=== PATIENT | male | born 1955 | race Caucasian/White ===

== ENCOUNTER → 2017-09-22 15:34 | Outpatient (CLI) | payer SELFPAY ==
[2017-09-22 18:20] LABS: Anion Gap 8 (5-15); BUN 15 mg/dL (7-18); BUN/Creat Ratio 16.4 RATIO (10-20); Chloride 105 mmol/L (98-107); Cholesterol 165 mg/dL (200); Creatinine, Serum 0.92 mg/dL (0.70-1.30); EST Glomerular Filtration Rate 88 mL/min (>60); Est Glom Filt Rate - Afr Amer 107 mL/min (>60); Glucose 108 mg/dL (70-110); High Density Lipoprotein 37 mg/dL; Potassium 3.9 mmol/L (3.5-5.1); Sodium Level 136 mmol/L (136-145); Triglycerides 98 mg/dL; Very Low Density Lipoprotein 20 mg/dL (5-40)
== END ==
PROVIDERS: Family Provider Family Medicine; PCP Family Medicine; Visit Provider Family Medicine
DX: E78.00 Pure hypercholesterolemia, unspecified (principal)
CPT/HCPCS: 36415; 80048; 80061

== ENCOUNTER → 2018-08-03 11:04 | Outpatient (CLI) | payer SELFPAY ==
[2018-08-03 12:19] LABS: Anion Gap 8 (5-15); BUN 12 mg/dL (7-18); Calcium,Total 9.4 mg/dL (8.5-10.1); Chloride 106 mmol/L (98-107); Cholesterol 145 mg/dL (200); EST Glomerular Filtration Rate 104 mL/min (>60); Est Glom Filt Rate - Afr Amer 125 mL/min (>60); Glucose 95 mg/dL (74-106); High Density Lipoprotein 37 mg/dL; Potassium 4.5 mmol/L (3.5-5.1); Sodium Level 142 mmol/L (136-145); Triglycerides 90 mg/dL; Very Low Density Lipoprotein 18 mg/dL (5-40)
--- OUTSIDE RECORDS SUMMARY | 2018-09-19 13:55 | XMS RPT_ITS ---
:1955 Author Organization [facility] Care Team Providers Name Role Phone Virgil Payton Attending Unavailable Virgil Payton Primary Care Unavailable Virgil Payton Attending Unavailable Virgil Payton Referring Unavailable Virgil Payton Primary Care Unavailable PROBLEMS PROBLEMS No Problem Records FoundPROCEDURES PROCEDURES No Procedure Records FoundRESULTS RESULTS BASIC METABOLIC Collected: 08/03/2018 Status: F Source: BHARATI PROFILE (BMP) 11:04 AM [facility] REPOSITORY TYPE CODE TESTS RESULT OUT OF RANGE REFERENCE UNITS LAB L501.0100 74-106 mg/dL Normal GLU 95 Result Comment: Please note revised GLUCOSE reference range effective 2017. LAB L501.1000 7-18 mg/dL Normal BUN 12 LAB L501.1100 0.70-1.30 mg/dL Normal CREAT,SERUM 0.80 Result Comment: The validity of the calculated GFR AND GFRAA in patients over 70 years has not been determined. Clinical correlation is essential. LAB L501.1110 >60 mL/min Normal EST GFR 104 Result Comment: Non- GFR Calc LAB L501.1115 >60 mL/min Normal EST GFR - AA 125 Result Comment: GFR Calc LAB L501.1300 10-20 RATIO Normal BUN/CRE 15.0 LAB L501.2200 8.5-10.1 mg/dL CA Normal 9.4 LAB L501.5300 136-145 mmol/L NA Normal 142 LAB L501.5600 3.5-5.1 mmol/L K Normal 4.5 LAB L501.5900 98-107 mmol/L CL Normal 106 LAB L501.6100 21.0-32.0 mmol/L Normal CO2 28.0 LAB L501.6200 5-15 Normal GAP 8 Performed By: #### L500.2500, L500.4100 #### [facility] [address] [place], [address] LIPID PROFILE Collected: 08/03/2018 Status: F Source: BHARATI 11:04 AM [facility] REPOSITORY TYPE CODE TESTS RESULT OUT OF RANGE REFERENCE UNITS LAB L501.4900 200 mg/dL Normal CHOL 145 Result Comment: <200 mg/dL Desirable 200-240 mg/dL Borderline >240 mg/dL High Risk LAB L501.5000 mg/dL Normal TRIG 90 Result Comment: The drugs N-Acetylcysteine and Metamizole may falsely depress this assay. Serum Triglycerides Reference Interval Normal <150 mg/dL Borderline high 150 - 199 mg/dL High 200 - 499 mg/dL Very High > or = 500 mg/dL LAB L501.6400 mg/dL Low HDL 37 Result Comment: The drugs N-Acetylcysteine and Metamizole may falsely depress this assay. Reference Range HDL <40 mg/dL Low HDL Cholesterol HDL >or= 60 mg/dL High HDL Cholesterol LAB L501.6500 0-130 mg/dL Normal LDL 90 LAB L501.6600 5-40 mg/dL Normal VLDL 18 Performed By: #### L500.2500, L500.4100 #### [facility] [address] [facility] [place], [place], [id number] BASIC METABOLIC Collected: 09/22/2017 Status: F Source: BHARATI PROFILE (BMP) 3:40 PM [facility] REPOSITORY TYPE CODE TESTS RESULT OUT OF RANGE REFERENCE UNITS LAB L501.0100 70-110 mg/dL Normal GLU 108 LAB L501.1000 7-18 mg/dL Normal BUN 15 LAB L501.1100 0.70-1.30 mg/dL Normal 0.92 CREAT,SERUM Result Comment: The validity of the calculated GFR AND GFRAA in patients over 70 years has not been determined. Clinical correlation is essential. LAB L501.1110 >60 mL/min Normal EST GFR 88 Result Comment: Non- GFR Calc LAB L501.1115 >60 mL/min Normal EST GFR - AA 107 Result Comment: GFR Calc LAB L501.1300 10-20 RATIO Normal BUN/CRE 16.4 LAB L501.2200 8.5-10.1 mg/dL CA Normal 9.0 LAB L501.5300 136-145 mmol/L NA Normal 136 LAB L501.5600 3.5-5.1 mmol/L K Normal 3.9 LAB L501.5900 98-107 mmol/L CL Normal 105 LAB L501.6100 21.0-32.0 mmol/L Normal CO2 23.0 LAB L501.6200 5-15 Normal GAP 8 Performed By: #### L500.2500, L500.4100 #### [facility] [address] [place], [address] LIPID PROFILE Collected: 09/22/2017 Status: F Source: VERSAILLES 3:40 PM [facility] REPOSITORY TYPE CODE TESTS RESULT OUT OF RANGE REFERENCE UNITS LAB L501.4900 200 mg/dL Normal CHOL 165 Result Comment: <200 mg/dL Desirable 200-240 mg/dL Borderline >240 mg/dL High Risk LAB L501.5000 mg/dL Normal TRIG 98 Result Comment: The drugs N-Acetylcysteine and Metamizole may falsely depress this assay. Serum Triglycerides Reference Interval Normal <150 mg/dL Borderline high 150 - 199 mg/dL High 200 - 499 mg/dL Very High > or = 500 mg/dL LAB L501.6400 mg/dL Low HDL 37 Result Comment: The drugs N-Acetylcysteine and Metamizole may falsely depress this assay. Reference Range HDL <40 mg/dL Low HDL Cholesterol HDL >or= 60 mg/dL High HDL Cholesterol LAB L501.6500 0-130 mg/dL Normal LDL 108 LAB L501.6600 5-40 mg/dL Normal VLDL 20 Performed By: #### L500.2500, L500.4100 #### [facility] [address] [place], [address] ALLERGIES ALLERGIES No Allergies Records FoundENCOUNTERS ENCOUNTERS ADMIT/DISCHARGE ACCOUNT ADMITTING ENCOUNTER LOCATION SOURCE NUMBER CLASS 08/03/2018 [id number] Ambulatory [facility] 0 [facility] ing:MFPLAB Repository 09/22/2017 [id number] Ambulatory [facility] 4 [facility] ing:MTLAB Repository PAYERS PAYERS ENCOUNTER GUARANTOR PAYER SUBSCRIBER SOURCE 08/03/2018 Jacob A [id number] Insurance:SELF PAY [place], [place] Number: Effective Repository [id number]: [phone] Date:2018-08-03 [phone] () 09/22/2017 Jacob A Primary NOT GIVENUNK [place] [id number] Insurance:SELF PAY [place], [place] Number: Effective Repository [phone]: [phone] Date:2017-09-22 [phone] ()
== END ==
PROVIDERS: Family Provider Family Medicine; PCP Family Medicine; Visit Provider Family Medicine
DX: I10 Essential (primary) hypertension (principal)
CPT/HCPCS: 36415; 80048; 80061

== ENCOUNTER → 2019-01-12 10:26 | Outpatient (CLI) | payer BC, SELFPAY ==
[2019-01-12 13:14] LABS: Anion Gap 6 (5-15); BUN 11 mg/dL (7-18); BUN/Creat Ratio 13.9 RATIO (10-20); Calcium,Total 9.2 mg/dL (8.5-10.1); Chloride 108 mmol/L (98-107); Cholesterol 145 mg/dL (200); Creatinine, Serum 0.79 mg/dL (0.70-1.30); EST Glomerular Filtration Rate 105 mL/min (>60); Est Glom Filt Rate - Afr Amer 127 mL/min (>60); Glucose 161 mg/dL (74-106); High Density Lipoprotein 40 mg/dL; Potassium 4.2 mmol/L (3.5-5.1); Sodium Level 140 mmol/L (136-145); Triglycerides 84 mg/dL; Very Low Density Lipoprotein 17 mg/dL (5-40)
== END ==
PROVIDERS: Family Provider Family Medicine; PCP Family Medicine; Visit Provider Family Medicine
DX: E78.5 Hyperlipidemia, unspecified (principal); I10 Essential (primary) hypertension
CPT/HCPCS: 36415; 80048; 80061

== ENCOUNTER → 2019-10-19 08:27 | Outpatient (CLI) | payer BC, SELFPAY ==
[2019-10-19 10:05] LABS: Anion Gap 6 (5-15); BUN 12 mg/dL (7-18); BUN/Creat Ratio 15.4 RATIO (10-20); Calcium,Total 9.2 mg/dL (8.5-10.1); Chloride 108 mmol/L (98-107); Creatinine, Serum 0.78 mg/dL (0.70-1.30); EST Glomerular Filtration Rate 106 mL/min (>60); Est Glom Filt Rate - Afr Amer 128 mL/min (>60); Glucose 116 mg/dL (74-106); Potassium 4.2 mmol/L (3.5-5.1); Sodium Level 141 mmol/L (136-145)
== END ==
PROVIDERS: PCP Family Medicine; Referring Provider Family Medicine; Visit Provider Family Medicine
DX: I10 Essential (primary) hypertension (principal)
CPT/HCPCS: 36415; 80048

== ENCOUNTER → 2020-04-17 09:12 | Outpatient (CLI) | payer MEDICARE, SELFPAY ==
--- NOTE | 2020-04-17 09:16 | RAD_ITS ---
STUDY: X-RAY - LEFT SHOULDER REASON FOR EXAM: Male, 64 years old. PAIN IN LEFT SHOULDER FOR ABOUT 6 MONTHS NOW. NO KNOWN INJURY. TECHNIQUE: 4 view(s) of the shoulder. COMPARISON: None. FINDINGS: Normal glenohumeral articulation. There is degenerative arthrosis of the acromioclavicular joint without inferior osseous spur formation. Normal acromion. Normal humeral head and visualized proximal humerus. The soft tissue structures are unremarkable. There is no demonstrated fracture. Normal visualized pulmonary apex. RAD/Shoulder min 2 Views IMPRESSION: Normally located glenohumeral joint and acromioclavicular joint without fracture, osteolytic or blastic bone lesion. Mild degenerative arthrosis of the acromioclavicular joint. Electronically Signed: Madyson Barraza MD at 17:35 EDT , Service support ,
== END ==
PROVIDERS: PCP Family Medicine; Referring Provider Family Medicine; Visit Provider Family Medicine
DX: M25.512 Pain in left shoulder (principal)
CPT/HCPCS: 73030

== ENCOUNTER 2020-05-21 13:00 | Outpatient (RCR) | payer MEDICARE, SELFPAY ==
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
--- NOTE | 2020-05-21 13:56 | HP.PTDCSUM_ITS ---
It has been my pleasure to treat JACOB WELLS referred by Dr. Virgil Payton MD, with the diagnosis of DEGENERATIVE ARTHROSIS L SHLD for a total of 5 visit(s). Discharge Date: Please see the following information for a summary of their discharge status. Subjective: IT'S NOT HURTING REAL BAD ANYMORE AND I CAN REACH UP TO THE TOP CUPBOARD AND GET WHAT I NEED NOW. PATIENT REPORTS HE WOULD LIKE TO TRY TO STOP PT AT THIS TIME AND CONTINUE WITH THE EX'S ON HIS OWN. PATIENT REPORTS HE DID ALL OF HIS HOME EX'S THIS MORNING. LEFT SHOULDER Pain Intensity (Out of 10): 0 % Improvement: 90 Objective/Function: PATIENT WAS SEEN TODAY FOR RE-ASSESSMENT OF PROGRESS TOWARD THE SET PT GOALS AND THE NEED FOR FURTHER PHYSICAL THERAPY VS READINESS FOR DISCHARGE. PATIENT HAS MADE GOOD PROGRESS WITH PT AND IS NOW INDEP WITH A HEP. UPON EXAM TODAY: Motor deficit: RIGHT PROFESSIONAL FIGHTER STRENGTH 74 LBS AND LEFT 72 LBS TODAY. INCREASED LEFT SHOULDER PAIN WITH LEFT PROFESSIONAL FIGHTER STRENGTH TESTING. LEFT UE STRENGTH IS NOW GROSSLY 4/5 WITH MMT'ING TESTED IN MID-RANGE TODAY. Sensory deficit: JENNIFER UE LIGHT TOUCH SENSATION INTACT AND SYMMETRICAL. ROM deficit: RIGHT UE WFL. LEFT: AROM LEFT SHLD FLEX 136 DEG, ABD, 120 DEG. SUPINE LEFT SHLD PROM: FLEX 152, SCAPTION 109 , IR 49 DEG, ER 45 DEG. PATIENT STILL HAS L SHLD PAIN AT THE END OF THE AVAILABLE ROM ALL PLANES WITH AROM AND PROM TESTING. OTHER: PATIENT REPORTS HIS LEFT WRIST IS FEELING GOOD AGAIN. Goal 1:: DECREASE C/O L SHOULDER AND UPPER ARM PAIN Goal Progress: Goal Met Goal 2:: IMPROVE LEFT UE FUNCTIONAL ROM TO EASE ADL'S Goal Progress: Goal Met Goal 3:: PATIENT WILL BE INDEP WITH A HEP FOR CONTINUED IMPROVEMENT ONCE FORMAL PHYSICAL THERAPY CONCLUDES. Goal Progress: Goal Met Goal 4:: INCREASE LEFT UE FUNCTIONAL STRENGTH TO EASE ADL'S. Goal Progress: Goal Met Plan: D/C TO INDEP HEP PER PATIENT REQUEST. If there are questions or concerns regarding this patient's physical therapy, please feel free to call me at [phone]. Thank you for the referral of this patient. Sincerely, Shell Chávez, PT, Cert MDT
== END 2020-05-21 19:00 | disposition home or self-care (01) ==
LOC: PT 13:00
PROVIDERS: PCP Family Medicine; Referring Provider Family Medicine; Visit Provider Family Medicine
DX: M19.012 Primary osteoarthritis, left shoulder (principal)
CPT/HCPCS: 97035; 97110; 97112; 97140; 97162; 97164; 97530

== ENCOUNTER → 2020-10-16 08:26 | Outpatient (CLI) | payer MEDICARE, SELFPAY ==
[2020-10-16 10:41] LABS: Microalbumin,Random Urine 7.3 mg/L (NO RANGE EST.); Microalbumin:Creatinine Ratio 15.4 mg/g CRE (<30 mg/g CRE)
[2020-10-16 10:55] LABS: Anion Gap 7 (5-15); BUN 17 mg/dL (7-18); BUN/Creat Ratio 22.8 RATIO (10-20); Calcium,Total 9.6 mg/dL (8.5-10.1); Chloride 107 mmol/L (98-107); Cholesterol 118 mg/dL (200); Creatinine, Serum 0.75 mg/dL (0.70-1.30); EST Glomerular Filtration Rate 111 mL/min (>60); Est Glom Filt Rate - Afr Amer 134 mL/min (>60); Glucose 123 mg/dL (74-106); High Density Lipoprotein 39 mg/dL; Potassium 4.3 mmol/L (3.5-5.1); Sodium Level 139 mmol/L (136-145); Triglycerides 91 mg/dL; Very Low Density Lipoprotein 18 mg/dL (5-40)
== END ==
PROVIDERS: PCP Family Medicine; Referring Provider Family Medicine; Visit Provider Family Medicine
DX: E11.9 Type 2 diabetes mellitus without complications (principal)
CPT/HCPCS: 36415; 80048; 80061; 82043; 82570

== ENCOUNTER → 2021-07-14 08:48 | Outpatient (CLI) | payer MEDICARE, SELFPAY ==
[2021-07-14 10:51] LABS: Anion Gap 4 (5-15); BUN 13 mg/dL (7-18); BUN/Creat Ratio 18.9 RATIO (10-20); Calcium,Total 9.4 mg/dL (8.5-10.1); Chloride 108 mmol/L (98-107); Cholesterol 111 mg/dL (200); Creatinine, Serum 0.69 mg/dL (0.70-1.30); EST Glomerular Filtration Rate 122 mL/min (>60); Est Glom Filt Rate - Afr Amer 148 mL/min (>60); Glucose 111 mg/dL (74-106); High Density Lipoprotein 37 mg/dL; Potassium 4.7 mmol/L (3.5-5.1); Sodium Level 138 mmol/L (136-145); Triglycerides 73 mg/dL; Very Low Density Lipoprotein 15 mg/dL (5-40)
== END ==
PROVIDERS: PCP Family Medicine; Visit Provider Family Medicine
DX: E11.9 Type 2 diabetes mellitus without complications (principal)
CPT/HCPCS: 36415; 80048; 80061

== ENCOUNTER → 2022-04-16 | Outpatient (CLI) | payer OTHER, SELFPAY ==
[2022-04-16 10:56] LABS: Anion Gap 7 (5-15); BUN 16 mg/dL (7-18); BUN/Creat Ratio 17.6 RATIO (10-20); Calcium,Total 9.8 mg/dL (8.5-10.1); Chloride 104 mmol/L (98-107); Cholesterol 119 mg/dL (200); Creatinine, Serum 0.91 mg/dL (0.70-1.30); EST Glomerular Filtration Rate 88 mL/min (>60); Est Glom Filt Rate - Afr Amer 107 mL/min (>60); Glucose 169 mg/dL (74-106); High Density Lipoprotein 34 mg/dL; Potassium 4.4 mmol/L (3.5-5.1); Sodium Level 137 mmol/L (136-145); Triglycerides 141 mg/dL; Very Low Density Lipoprotein 28 mg/dL (5-40)
== END | disposition home or self-care (01) ==
LOC: MFPLAB 08:39
PROVIDERS: PCP Family Medicine; Referring Provider Family Medicine; Visit Provider Family Medicine
DX: I10 Essential (primary) hypertension (principal)
CPT/HCPCS: 36415; 80048; 80061

== ENCOUNTER → 2022-12-07 | Outpatient (CLI) | payer MEDICARE, SELFPAY ==
[2022-12-07 10:30] LABS: Anion Gap 5 (5-15); BUN 12 mg/dL (7-18); BUN/Creat Ratio 13.4 RATIO (10-20); Calcium,Total 9.6 mg/dL (8.5-10.1); Chloride 101 mmol/L (98-107); Cholesterol 95 mg/dL (200); Creatinine, Serum 0.89 mg/dL (0.70-1.30); EST Glomerular Filtration Rate 90 mL/min (>60); Est Glom Filt Rate - Afr Amer 109 mL/min (>60); Glucose 105 mg/dL (74-106); High Density Lipoprotein 31 mg/dL; Potassium 4.8 mmol/L (3.5-5.1); Sodium Level 132 mmol/L (136-145); Triglycerides 97 mg/dL; Very Low Density Lipoprotein 19 mg/dL (5-40)
== END | disposition home or self-care (01) ==
PROVIDERS: PCP Family Medicine; Visit Provider Family Medicine
DX: I10 Essential (primary) hypertension (principal); R39.15 Urgency of urination
CPT/HCPCS: 36415; 80048; 80061; 84153

== ENCOUNTER → 2023-01-12 | Outpatient (CLI) | payer MEDICARE, SELFPAY ==
--- NOTE | 2023-01-12 | IMM_PTH ---
PATIENT: JACOB WELLS LOC: SUZI U#:[id number] AGE/SX: 67/M ROOM: RE01/12/[address]: Dr. Josué Lara MD : 1955 BED: DIS: 01/12/2023 SPEC #: [id number] RECD: 01/14/23 12:52 STATUS: ROYCE REQ #: [id number] BROOKE: 01/12/23 00:[address]: Josué Lara DEPT: IMMUNOHISTOCHEMISTRY RECD BY: Tatianna Haddad ENTERED: 01/14/23 12:55 SP TYPE: IMMUNO OTHR DR: Dr. Virgil Payton MD Tissues: A - PROSTATE RIGHT C - PROSTATE RIGHT Procedures: 34BE12 (add) P40 (add) 34BE12 (initial) PHYSICIAN & INSTITUTION [place] [id number] SPECIMEN INFORMATION: Tissue Source: A - Right prostate, apex, core biopsy, C - Right prostate, base, core biopsy Clinical Info: Elevated PSA Specimen Number: [id number] A & C CPT code: 91663, 16175 x3 METHODOLOGY: Deparaffinized sections of prefer/formalin-fixed tissue or PAP/DQ stained slides are incubated with monoclonal/polyclonal antibodies/oligonucleotide probes. Localization is made via biotin free immunoperoxidase method. Appropriate controls are performed and reacted as expected. Results on target cell population are indicated in the following table: RESULTS: ANTIBODY / CLONE RESULT Block A P40 (BC28) negative 34BE12 (34BE12) negative Block C P40 (BC28) negative 34BE12 (34BE12) negative These tests were developed and their performance characteristics determined by [facility]. They may not have been cleared or approved by the U.S. Food and Drug Administration. The FDA has determined that such clearance or approval is not necessary. The above immunohistochemical/dualISH markers are ordered and reviewed by the Pathologist. INTERPRETATION: A. Right prostate, apex, core biopsy: A minute focus of adenocarcinoma. C. Right prostate, base, core biopsy: A minute focus of adenocarcinoma. VINNY:areli 01/15/2023
--- NOTE | 2023-01-12 08:00 | PROSBIL_PTH ---
PATIENT: JACOB WELLS LOC: SUZI U#:[id number] AGE/SX: 67/M ROOM: RE01/12/[address]: Dr. Josué Lara MD : 1955 BED: DIS: 01/12/2023 SPEC #: [id number] RECD: 01/12/23 15:00 STATUS: ROYCE KARLI #: [id number] BROOKE: 01/12/23 08:[address]: Josué Lara DEPT: SURGICAL PATHOLOGY RECD BY: Jonas Lowery ENTERED: 01/13/23 10:37 SP TYPE: PROST BX BENITA DR: Dr. Virgil Payton MD Tissues: A - PROSTATE RIGHT B - PROSTATE RIGHT C - PROSTATE RIGHT D - PROSTATE LEFT E - PROSTATE LEFT F - PROSTATE LEFT Procedures: PROSTATE BX HEADER OPERATION: Prostate biopsy PRE-OP DIAGNOSIS: Elevated PSA TISSUE SUBMITTED: A - Right apex, B - Right mid, C - Right base, D - Left apex, E - Left mid, F - Left base MICROSCOPIC DIAGNOSIS A. Right prostate, apex, core biopsy: A minute focus of prostatic adenocarcinoma. Giorgi grade: 3+4=7 Number of cores involved: 1/1 Proportion of tissue involved: <5% Perineural invasion: Not identified. Greatest tumor length: <0.1 cm Focal high-grade prostatic intraepithelial neoplasia (HGPIN). See comment. B. Right prostate, mid, core biopsy: Prostatic tissue, negative for malignancy. C. Right prostate, base, core biopsy: A minute focus of prostatic adenocarcinoma. [place] grade: 3+4=7 Number of cores involved: 1/2 Proportion of tissue involved: <5% Perineural invasion: Not identified. Greatest tumor length: <0.1 cm See comment. D. Left prostate, apex, core biopsy: Prostatic adenocarcinoma. [place] grade: 3+4=7 Number of cores involved: 1/1 Proportion of tissue involved: ~90% Perineural invasion: Not identified. Greatest tumor length: 1.2 cm, discontinuous E. Left prostate, mid, core biopsy: Prostatic adenocarcinoma. Giorgi grade: 3+4=7 Number of cores involved: 2/2 Proportion of tissue involved: >95% Perineural invasion: Present, focal. Greatest tumor length: 1.3 cm F. Left prostate, base, core biopsy: Prostatic adenocarcinoma. [place] grade: 3+4=7 Number of cores involved: 2/2 Proportion of tissue involved: >95% Perineural invasion: Present, frequent. Greatest tumor length: 1.2 cm Focal high-grade prostatic intraepithelial neoplasia (HGPIN). SJ:areli 01/14/2023 COMMENT A & C. Immunohistochemistry ([id number]) supports the above diagnosis. Case has been reviewed in consultation with Dr. Bra who concurs with the above diagnosis. IDC:[id number] MICROSCOPIC DESCRIPTION Slides are reviewed. GROSS DESCRIPTION A - Received is one container designated prostate, right apex. The specimen consists of one elongated fragment of light tabor-white soft tissue measuring 1.0 cm in length and 0.1 cm in diameter. The specimen is totally submitted in one cassette. B - Received is one container designated prostate, right mid. The specimen consists of one elongated fragment of light tabor-white soft tissue measuring 1.0 cm in length and 0.1 cm in diameter. The specimen is totally submitted in one cassette. C - Received is one container designated prostate, right base. The specimen consists of two elongated fragments of light tabor-white soft tissue measuring 0.5 and 1.2 cm in length and 0.1 cm in diameter. The specimen is totally submitted in one cassette. D - Received is one container designated prostate, left apex. The specimen consists of one elongated fragment of light tabor-white soft tissue measuring 1.5 cm in length and 0.1 cm in diameter. The specimen is totally submitted in one cassette. E - Received is one container designated prostate, left mid. The specimen consists of two elongated fragments of light tabor-white soft tissue each measuring 1.5 cm in length and 0.1 cm in diameter. The specimen is totally submitted in one cassette. F - Received is one container designated prostate, left base. The specimen consists of two elongated fragments of light tabor-white soft tissue each measuring 1.5 cm in length and 0.1 cm in diameter. The specimen is totally submitted in one cassette. / SJ:areli 01/13/2023 TC:0 [facility]: [id number]
== END | disposition home or self-care (01) ==
LOC: LABSPEC 16:54
PROVIDERS: PCP Family Medicine; Referring Provider Urology; Visit Provider Urology
DX: R97.20 Elevated prostate specific antigen [PSA] (principal)
CPT/HCPCS: 88305; 88341; 88342; G0416

== ENCOUNTER → 2023-01-27 | Outpatient (CLI) | payer MEDICARE, SELFPAY ==
--- NOTE | 2023-01-27 09:55 | NM_ITS ---
CLINICAL: 67-year-old male with history of carcinoma of the prostate. WHOLE BODY 99m Tc MDP RADIONUCLIDE BONE SCINTIGRAPHY COMPARISON: None available FINDINGS: Following the intravenous administration of 27.2 mCi of 99m Tc MDP, whole body bone images reveal: 1. Increased radiopharmaceutical concentration is defined in the mid-lower cervical spine posteriorly on the right and left respectively, the fifth lumbar vertebra posteriorly on the right, the acromioclavicular and sternoclavicular compartments of both shoulders, the medial tibial compartment of the right knee. 2. The remaining skeletal structures are scintigraphically unremarkable with normal-appearing renal images and urinary bladder activity identified. NM/Bone Scan Whole Body IMPRESSION: 1. The increase in radiopharmaceutical defined in the cervical and lumbar spine, bilateral shoulders and right knee articulation is most consistent with degenerative arthrosis. 2. There is no definitive scintigraphic evidence of diffuse axial skeletal metastatic disease on the current examination. Electronically Signed: Itz Oquendo, at 21:17 EDT ,
== END | disposition home or self-care (01) ==
PROVIDERS: PCP Family Medicine; Referring Provider Urology; Visit Provider Urology
DX: C61 Malignant neoplasm of prostate (principal)
CPT/HCPCS: 78306; A9503

== ENCOUNTER → 2023-02-01 | Outpatient (CLI) | payer MEDICARE, SELFPAY ==
--- NOTE | 2023-02-01 08:14 | CT_ITS ---
STUDY: CT ABDOMEN AND PELVIS WITH CONTRAST REASON FOR EXAM: Male, 67 years old. PROSTATE CANCER RADIATION DOSAGE (If Supplied By Facility): CTDIvol = ( 14.96 ) mGy, DLP = ( 794.81 ) mGycm TECHNIQUE: Transaxial images were obtained from the dome of the diaphragm to the symphysis pubis without oral contrast. IV 100mL Isovue-300 was administered. Sagittal and coronal images were reconstructed. Individualized dose optimization techniques were used for this CT. COMPARISON: None. FINDINGS: The visualized lung bases are unremarkable. The visualized portions of the heart are within normal limits. Normal liver. The gallbladder is contracted. Normal spleen. Normal pancreas. Normal bilateral adrenal glands. Normal right kidney. Normal left kidney. Evaluation of the GI tract is limited by absence of oral contrast. Cannot exclude stomach wall thickening. No dilated loops of bowel or evidence for obstruction. Cannot exclude segmental thickening of the ramírez of the small or large bowel. Cannot exclude enteritis or colitis. Moderate diffuse fecal retention. Diverticulosis without definite diverticulitis. Appendix within normal limits. Aorta has an elongated fusiform aneurysm with greatest cross-sectional dimension of 6.8 cm. There is prominent eccentric intraluminal thrombus. No evidence for leak. There is calcified ectasia of both iliac arteries. Normal inferior vena cava. Normal retroperitoneum. Normal urinary bladder. Moderately large heterogeneous prostate. No definite pelvic adenopathy. Normal abdominal wall. Normal osseous structures. CT/Abdomen/Pelvis W IV Cont ONLY IMPRESSION: Elongated infrarenal aortic aneurysm with greatest diameter of 6.8 cm Moderate heterogeneous enlargement of the prostate gland. Electronically Signed: Clay Cassidy MD at 16:18 EDT ,
[2023-02-01 08:43] LABS: CREATININE FINGERSTICK < 0.9 mg/dL (0.70-1.30); EGFR FINGERSTICK > 60.0000 mL/min (>60)
== END | disposition home or self-care (01) ==
LOC: CT 08:13
PROVIDERS: PCP Family Medicine; Referring Provider Urology; Visit Provider Urology
DX: C61 Malignant neoplasm of prostate (principal)
CPT/HCPCS: 74177; Q9967

== ENCOUNTER → 2023-02-18 | Outpatient (CLI) | payer MEDICARE, SELFPAY ==
--- NOTE | 2023-02-18 07:09 | CT_ITS ---
INDICATION: AAA EXAMINATION: CTA abdomen and pelvis - TECHNIQUE: Routine abdominal CT angiogram protocol was performed with IV contrast. MIP images provided. A radiation dose optimization technique was used for this scan. IV Contrast dosage and agent: 100 cc of Isovue-370 RADIATION DOSAGE (If Supplied By Facility): CTDIvol = ( 31.80 ) mGy, DLP = ( 735.06 ) mGycm COMPARISON: Prior study dated: February 01, 2023 FINDINGS: Lung bases: There is a right middle lobe granuloma. Liver: The liver is diffusely low in attenuation consistent with fatty infiltration. Gallbladder: Normal. Spleen: Normal. Adrenal gland: Normal. Kidneys: Normal. No hydronephrosis or stone formation. Pancreas:Normal. Bowel gas pattern: Nonobstructive. There are diverticula arising from the colon. Appendix: Normal. Free air: None. Free fluid: None. Pelvis: Pelvic organs: No mass lesion noted. Bone survey: There are degenerative changes of the lumbar spine. No acute fractures. Adenopathy: No significant pathologic adenopathy detected. Vascular: There is a stable elongated fusiform infrarenal abdominal aneurysm measuring up to 6.8 cm in diameter. There is eccentric intraluminal thrombus. There is stable ectasia of the common iliac arteries. CT/CTA Abd/Pelvis W/WO Contrast IMPRESSION: Stable infrarenal aortic aneurysm measuring up to 6.8 cm. Atherosclerosis. Fatty infiltration of the liver. Electronically Signed: Eulalia Lerner MD at 10:30 EDT ,
== END | disposition home or self-care (01) ==
LOC: CT 07:09
PROVIDERS: PCP Family Medicine; Referring Provider Physician Assistant; Visit Provider Physician Assistant
DX: I71.40 Abdominal aortic aneurysm, without rupture, unspecified (principal)
CPT/HCPCS: 74174; Q9967

== ENCOUNTER → 2023-03-11 | Outpatient (CLI) | payer MEDICARE, SELFPAY ==
[2023-03-11 10:29] LABS: Mucous, Urine 0 SEEN /hpf (<or=2+); Red Blood Cells-Urine 0 SEEN /hpf (0-5)
[2023-03-11 10:33] LABS: Color, Urine Yellow (Yellow); Glucose, Dipstick Normal (Normal); Ketone-Dipstick Negative (Negative); Leukocyte Esterase-Dipstick 500 /ul (Negative); Nitrite-Dipstick Positive (Negative); Occult Blood-Urine 25 /ul (Negative); Protein-Dipstick Negative (Negative); Urine Bilirubin Dipstick Negative (Negative); Urine Clarity Sl. Cloudy (Clear); Urine Urobilinogen Normal (Normal)
[2023-03-11 10:41] LABS: White Blood Cells 10-25 SEEN /hpf (0-5)
[2023-03-11 10:42] LABS: Bacteria 4+ /hpf (None Seen); Squamous Epithelial Cells - UA 0-5 SEEN /hpf (0-5)
== END | disposition home or self-care (01) ==
LOC: LABSPEC 10:24
PROVIDERS: PCP Family Medicine; Referring Provider Physician Assistant Surgical; Visit Provider Physician Assistant Surgical
DX: R30.0 Dysuria (principal)
CPT/HCPCS: 81001; 87077; 87086; 87088; 87186

== ENCOUNTER → 2023-05-17 | Outpatient (CLI) | payer MEDICARE, SELFPAY ==
[2023-05-17 10:30] LABS: Absolute Neutrophil Count 6.4 X10^3/uL (2.0-7.7); Basophil# 0.08 X10^3/uL; Basophil% 0.8 % (0-1); Eosinophil# 0.25 X10^3/uL; Eosinophils% 2.5 % (0-5); Hematocrit 38.4 % (40-54); Hemoglobin 11.7 g/dL (13.0-16.5); Lymphocyte % 24.5 % (19-41); Mean Corp Hgb Conc 30.5 g/dL (32-36); Mean Corpuscular Hgb 26.9 pg (27.0-32.0); Mean Corpuscular Volume 88.3 fL (80-94); Mean Platelet Vol. 9.5 fl (6.2-12.0); Monocyte# 0.63 X10^3/uL; Monocyte% 6.4 % (0-10); NRBC Flagged by Analyzer 0 % (0-5); Neutrophil # 6.42 X10^3/uL (2.7-7.7); Neutrophil % 65.5 % (47-70); Platelet Count 291 K/mm3 (150-450); RBC Distribution Width CV 15.1 % (11.6-14.6); RBC Distribution Width SD 49.1 fl (35.1-43.9); Red Blood Count 4.35 M/mm3 (4.6-6.2); White Blood Count 9.8 K/mm3 (4.4-11.0)
[2023-05-17 10:47] LABS: Hemoglobin A1c 5.8 % (3.8-5.6)
[2023-05-17 11:04] LABS: Anion Gap 7 (5-15); BUN 12 mg/dL (7-18); BUN/Creat Ratio 14.3 RATIO (10-20); Calcium,Total 9.3 mg/dL (8.5-10.1); Chloride 104 mmol/L (98-107); Cholesterol 106 mg/dL (200); Creatinine, Serum 0.84 mg/dL (0.70-1.30); EST Glomerular Filtration Rate 97 mL/min (>60); Est Glom Filt Rate - Afr Amer 117 mL/min (>60); Glucose 98 mg/dL (74-106); High Density Lipoprotein 44 mg/dL; Potassium 4.2 mmol/L (3.5-5.1); Sodium Level 135 mmol/L (136-145); Triglycerides 69 mg/dL; Very Low Density Lipoprotein 14 mg/dL (5-40)
== END | disposition home or self-care (01) ==
LOC: MFPLAB 08:56
PROVIDERS: PCP Family Medicine; Visit Provider Family Medicine
DX: Z01.818 Encounter for other preprocedural examination (principal); E11.9 Type 2 diabetes mellitus without complications; E78.00 Pure hypercholesterolemia, unspecified; I10 Essential (primary) hypertension
CPT/HCPCS: 36415; 80048; 80061; 83036; 85025

== ENCOUNTER 2023-06-02 05:39 | Day surgery (SDC) | payer MEDICARE, SELFPAY ==
[2023-06-02 06:26] VITALS: BP 159/78; PULSE 69; RESP 16; TEMP 36.7; O2SAT 98; BMI 22.7
[2023-06-02] MEDS: Lactated Ringers 1,000 ML 15 ML IV (06:33)
[2023-06-02 06:54] LABS: Bedside Glucose 103 mg/dL (74-106)
[2023-06-02] MEDS: Cefazolin 2 GM in 0.9% Normal Saline (100mL Bag) 100 ML IV (07:28)
--- NOTE | 2023-06-02 07:51 | PCM.HP.STD ---
HPI - General General Date of Service: 06/02/23 Chief Complaint: Prostate cancer [facility] Narrative JACOB WELLS, is a 67 M who presents for placement of gold markers and spacer gel for Treatment of his prostate cancer [facility] Medical History (Updated 05/26/23 @ 13:15 by Jing Diehl) AAA (abdominal aortic aneurysm) Abnormal prostate biopsy (~12/2022) Alcohol use Bladder disease Blurry vision Bronchitis Cancer Cerebrovascular disease Chronic cough Constipation CPAP (continuous positive airway pressure) dependence Diabetes Difficulty chewing Dysuria Hearing loss Heart disease History of edema History of nocturia History of pain when walking Hypertension Incomplete bladder emptying Neck pain Phlebitis and thrombophlebitis of deep vein of lower extremity Prostate cancer Prostatic hyperplasia, benign localized Shortness of breath on exertion Smoker TIA (transient ischemic attack) Wears glasses Wears hearing aid Home Medications clopidogrel 75 mg tablet 75 mg PO DAILY 02/09/23 [History Last Taken 05/27/23] gabapentin 300 mg capsule 300 mg PO TID 02/09/23 [History Last Taken 06/02/23] latanoprost 0.005 % eye drops, emulsion 1 drp ophthalmic (eye) DAILY 02/09/23 [History Last Taken 06/02/23] lisinopril 40 mg tablet 40 mg PO DAILY 02/09/23 [History Last Taken 06/02/23 04:45] metformin 1,000 mg tablet 1,000 mg PO BID 02/09/23 [History Last Taken 06/02/23] oxybutynin chloride 5 mg tablet 5 mg PO DAILY 02/09/23 [History Last Taken 06/02/23] simvastatin 40 mg tablet 40 mg PO QHS 02/09/23 [History Last Taken Unknown] tamsulosin 0.4 mg capsule 0.4 mg PO QHS 02/09/23 [History Last Taken Unknown] calcium citrate 200 mg calcium-vitamin D3 3.125 mcg (125 unit) tablet 1 tab PO DAILY 03/11/23 [History Last Taken 06/02/23] kfbpfvle-vjskidhkh-eppbwdig 3.5 mg/mL-10,000 unit/mL-0.1% eye drops 1 drp ophthalmic (eye) 4X/DAY 05/26/23 [History Last Taken Unknown] ciprofloxacin HCl 500 mg tablet (Cipro) 500 mg PO BID #10 tabs 06/02/23 [Rx Last Taken Unknown] Allergy/AdvReac Type Severity Reaction Status Date / Time No Known Allergies Allergy Verified 06/02/23 06:21 Family History Mother Cancer Arthritis Hypertension Father Diabetes Hypertension Surgical History (Updated 05/26/23 @ 13:15 by Jing Diehl) Hx of cardiac catheterization Social History Smoking Status: Current every day smoker tobacco type: cigarettes alcohol intake: current Vital Signs Vital Signs Vital Signs: 06/02/23 06:26 06/02/23 06:26 Temperature 98.1 F Temperature Source Temporal Pulse Rate 69 Respiratory Rate 16 Respiratory Pattern Normal Blood Pressure 159/78 H Blood Pressure Mean 105 Blood Pressure Source Monitor Blood Pressure Position Semi-Fowlers Blood Pressure Location Right Arm Pulse Ox 98 Oxygen Delivery Method Room Air Weight Weight: 72 kg Body Mass Index (BMI) 22.7 Results Lab / Micro Data Labs: Laboratory Results - last 24 hr 06/02/23 06:31: POC Glucose 103
--- NOTE | 2023-06-02 07:52 | DCINST_ITS ---
Discharge Instructions Diet Discharge Diet: No restrictions Activity Discharge Activity: Return to Normal Activity Follow Up Care Please Follow Up With: Josué Lara MD When: call for appt Test Results: Test results from this visit will be discussed in further detail at your follow- up appointment, if applicable. Discharge Plan Admission Primary Reason for Your Visit: Prostate cancer Attending Provider: Josué Lara Primary Care Provider: Virgil Payton Discharge Orders/Prescriptions Prescriptions: New ciprofloxacin HCl [Cipro] 500 mg tablet 500 mg PO BID Qty: 10 0RF Continued tamsulosin 0.4 mg capsule 0.4 mg PO QHS simvastatin 40 mg tablet 40 mg PO QHS metformin 1,000 mg tablet 1,000 mg PO BID lisinopril 40 mg tablet 40 mg PO DAILY latanoprost 0.005 % drops, emulsion 1 drp ophthalmic (eye) DAILY gabapentin 300 mg capsule 300 mg PO TID clopidogrel 75 mg tablet 75 mg PO DAILY oxybutynin chloride 5 mg tablet 5 mg PO DAILY calcium citrate-vitamin D3 200 mg-3.125 mcg (125 unit) tablet 1 tab PO DAILY neomycin-polymyxin B-dexameth 3.5mg/mL-10,000 unit/mL-0.1 % drops,suspension 1 drp ophthalmic (eye) 4X/DAY Patient Comments: FOR 5 DAYS Referrals / Follow Up: Josué Lara MD [Med Staff - Active Staff] - Virgil Payton MD [Primary Care Provider] - Disposition Disposition (needs filled in before D/C Order can be placed): Home, Self Care
--- NOTE | 2023-06-02 07:53 | PCM.OPRPT ---
Report of Operation Date of Procedure: 06/02/23 Pre-Operative Diagnosis: Prostate cancer Post-Operative Diagnosis: The same Surgery/Procedure Performed:: Placement of spacer gel matrix, placement of gold markers Description of Surgical Findings:: Patient was taken back to the operating room at a smooth induction of anesthesia he was placed in supine position with the legs in stirrups, the perineum testicles and penis and rectal area were prepped and draped in usual sterile fashion, and introduced an ultrasound probe into the rectum we used a stepper to hold the probe and then I did ultrasonography of the prostate the prostate was about 30 g in size identified the right and left lobe of the prostate the seminal vesicles the apex the bladder after the prostate was identified then 3 geophysical laboratory supervisor needles were used to place gold markers in the prostate the first marker was placed in the right mid prostate the second geophysical laboratory supervisor was placed in the left mid prostate and the third geophysical laboratory supervisor was placed in the right base and deep anterior. After the 3 markers were placed then I went to the back table and I prepared the spacer gel matrix according to the extrusion utility worker's instructions. Once the spacer gel matrix was prepared then we used the bevel needle to go through the perineum and into the space between the rectum and the prostate entering into the space of Denonvilliers' fascia once the needle was in the space confirmed by ultrasound both by biplanar and sagittal and longitudinal views by ultrasound then I injected a puff of normal saline, injectable normal saline and once this was done this confirmed the location of the saline and then we injected the spacer gel right in the space there was nice separation between the rectum and the prostate after this was injected I removed the needle patient was cleaned taken out of stirrups patient anesthetic was reversed and he is taken back to the PACU in good condition successful placement of gold markers and very good separation with a spacer gel. Surgeon: Josué Lara Type of Anesthesia: General Drains: none Admit VTE Documentation VTE Present on Admission: No VTE Mechan Device Prophylaxis: SCD's VTE Pharm Prophylaxis ordered?: No
[2023-06-02 07:58] VITALS: BP 101/71; BP 159/78; PULSE 71; RESP 16; TEMP 36.6; O2SAT 100
[2023-06-02 08:00] VITALS: BP 105/65; BP 159/78; PULSE 72; RESP 18; O2SAT 96
[2023-06-02 08:15] VITALS: BP 111/69; BP 159/78; PULSE 81; RESP 16; O2SAT 94
[2023-06-02 08:24] LABS: Bedside Glucose 101 mg/dL (74-106)
[2023-06-02 08:26] VITALS: BP 109/70; BP 159/78; PULSE 73; RESP 18; TEMP 36.5; O2SAT 93
[2023-06-02 08:49] VITALS: BP 159/78
== END 2023-06-02 08:51 | disposition home or self-care (01) ==
LOC: SDC 05:39 → AC 05:41
PROVIDERS: PCP Family Medicine; Referring Provider Urology; Visit Provider Urology
PROC: (CPT 55874; principal; 2023-06-02 07:15)
DX: C61 Malignant neoplasm of prostate (principal); E11.9 Type 2 diabetes mellitus without complications; I10 Essential (primary) hypertension; F17.210 Nicotine dependence, cigarettes, uncomplicated; Z79.02 Long term (current) use of antithrombotics/antiplatelets; Z79.84 Long term (current) use of oral hypoglycemic drugs; Z86.73 Personal history of transient ischemic attack (TIA), and cerebral infarction without residual deficits; R05.3 Chronic cough; Z91.199 Patient's noncompliance with other medical treatment and regimen due to unspecified reason
CPT/HCPCS: 55876; 00400; 82962; J7120; J2405

== ENCOUNTER → 2023-06-09 | Outpatient (CLI) | payer MEDICARE, SELFPAY ==
--- NOTE | 2023-06-09 11:03 | MRI_ITS ---
MR Pelvis Male WO/W Contrast 06/09/2023 11:14 AM COMPARISON: None CLINICAL HISTORY: 67 yo man with prostate cancer. TECHNIQUE: Axial T1-weighted and high-resolution axial T2-weighted MR images of the pelvis were obtained. Images were acquired for planning of radiation therapy. 15 cc of IV Clariscan was used. DISCUSSION: See Impression. MRI/Pelvis W/WO Contrast IMPRESSION: 1) MR imaging scan done for planning of radiation therapy of prostate cancer. 2) Heterogeneous appearance of the gland is at least in part due to the known prostate cancer, as well as being consistent with benign prostatic hyperplasia. 3) Extent of tumor involves the: -left posterior and posterolateral peripheral zone from base to apex -right posterior peripheral zone near base -questionable involvement of the left transitional zone near apex. -4 mm of extra capsular extension posteriorly and posterolaterally on the left -Involvement of both seminal vesicles -Tumor abuts the inferior bladder wall on the left with no obvious invasion. -No obvious lymphadenopathy. -No osseous metastases. Electronically Signed: Daniel Mcbride MD at 23:59 EDT ,
== END | disposition home or self-care (01) ==
PROVIDERS: PCP Family Medicine; Referring Provider Student in an Organized Health Care Education/Training Program; Visit Provider Student in an Organized Health Care Education/Training Program
DX: C61 Malignant neoplasm of prostate (principal)
CPT/HCPCS: 72197; 77014; 77290; A9575; Q9967; A4216

== ENCOUNTER → 2023-08-18 | Outpatient (CLI) | payer MEDICARE, SELFPAY ==
[2023-08-18 10:20] LABS: Anion Gap 2 (5-15); BUN 15 mg/dL (7-18); BUN/Creat Ratio 16.7 RATIO (10-20); Calcium,Total 10.1 mg/dL (8.5-10.1); Chloride 105 mmol/L (98-107); EST Glomerular Filtration Rate 89 mL/min (>60); Est Glom Filt Rate - Afr Amer 108 mL/min (>60); Glucose 109 mg/dL (74-106); Potassium 4.5 mmol/L (3.5-5.1); Sodium Level 135 mmol/L (136-145)
== END | disposition home or self-care (01) ==
LOC: MFPLAB 08:31
PROVIDERS: PCP Family Medicine; Visit Provider Family Medicine
DX: E11.9 Type 2 diabetes mellitus without complications (principal); C61 Malignant neoplasm of prostate
CPT/HCPCS: 36415; 80048; 84153

== ENCOUNTER → 2023-12-13 | Outpatient (CLI) | payer MEDICARE, SELFPAY ==
--- NOTE | 2023-12-13 08:09 | AAVD_ITS ---
Reason For Study: HX AAA / AAA Repair Aorta Measurements Aorta Doppler Measurements Proximal aorta measures2.62 x 2.67cm. in cross- Peak systolic flow velocities within the proximal sectional axis. aorta measure 58.3 cm/sec. Proximal aorta measures2.60cm. in longitudinal Peak systolic flow velocities within the mid aorta axis. measure 38.2 cm/sec. Mid aorta measures2.71 x 2.85cm. in cross- Peak systolic flow velocities within the distal sectional axis. aorta measure 27.2 cm/sec. Mid aorta measures2.80cm. in longitudinal axis. Endo/Stent Noted. HX Endograft/Stent at Mid Mid AO / Prox Endo 2.46cm x 2.55cm in Transverse 2.18cm in Long PSV = 32.7cm/s Dist Ao / Mid Endo Residual Sac measures 6.82cm x 6.10cm in Trans 6.70cm in long Endo Measures 2.18cm in long PSV = 27.2cm/s Rt Limb Prox measures 1.00cm x 0.98cm in Trans Rt Limb Prox measures 1.00cm in long PSV = 80.2cm/s Rt Limb Dist measures 1.15cm x 1.03cm in Trans Rt Limb Dist measures 1.06 cm in long PSV = 72.8cm/s Lt Limb Prox measures 1.07cm x 1.03cm in Trans Lt Limb Prox measures 0.97 cm in long PSV = 86.0cm/s Lt Limb Dist measures 0.91cm x 0.94cm in Trans Lt Limb Dist measures 1.03 cm in long PSV = 105.8cm/s. Left Iliac Artery Left iliac artery measures 1.18 x 1.04 cm. in the cross-sectional axis. Left iliac artery measures 0.93 cm. in the longitudinal axis. Peak systolic velocity in the left iliac artery measures 185.3 cm/sec. Right Iliac Artery Right iliac artery measures 1.19 x 0.99 cm. in the cross-sectional axis. Right iliac artery measures 1.06 cm. in the longitudinal axis. Peak systolic velocity in the right iliac artery measures 149.7 cm/sec. Procedure Aorta IVC Iliac vasculature or bypass grafts [id number]. The exam was diagnostic. Exam performed in department. VL/Abd Aortic/IVC Duplex scan Interpretation Summary Patent aortic stent graft with normal velocities throughout, no evidence of simon nosis. Residual aneurysm sac 6.82 cm with no endoleak visualized. Ordering Physician: MONSE LARA Referring Physician: Virgil Payton Performed By: Anmol Nunez RVT
== END | disposition home or self-care (01) ==
PROVIDERS: PCP Family Medicine
DX: I71.42 Juxtarenal abdominal aortic aneurysm, without rupture (principal)
CPT/HCPCS: 93978

== ENCOUNTER → 2024-02-16 | Outpatient (CLI) | payer MEDICARE, SELFPAY ==
[2024-02-16 10:38] LABS: Microalbumin,Random Urine < 5.0 mg/L (NO RANGE EST.)
[2024-02-16 11:28] LABS: ALB/GLOB Ratio 0.9 RATIO (0.9-2.4); AST(SGOT) 10 U/L (15-37); Alanine Aminotransfer ALT/SGPT 18 U/L (16-61); Albumin, Serum 3.7 g/dL (3.2-5.0); Alkaline Phosphatase 95 U/L (45-117); Anion Gap 6 (5-15); BUN 29 mg/dL (7-18); BUN/Creat Ratio 17.1 RATIO (10-20); Calcium,Total 10.1 mg/dL (8.5-10.1); Chloride 101 mmol/L (98-107); Cholesterol 128 mg/dL (200); EST Glomerular Filtration Rate 43 mL/min (>60); Est Glom Filt Rate - Afr Amer 51 mL/min (>60); Globulin 3.9 g/dL (2.2-4.2); Glucose 100 mg/dL (74-106); High Density Lipoprotein 42 mg/dL; PSA,Total- Diagnostic 1.32 ng/mL (0.0-4.0); Potassium 5.2 mmol/L (3.5-5.1); Protein, Total 7.6 g/dL (6.4-8.2); Sodium Level 130 mmol/L (136-145); Triglycerides 92 mg/dL; Very Low Density Lipoprotein 18 mg/dL (5-40)
== END | disposition home or self-care (01) ==
LOC: MFPLAB 08:25
PROVIDERS: PCP Family Medicine; Visit Provider Family Medicine
DX: C61 Malignant neoplasm of prostate (principal); E11.9 Type 2 diabetes mellitus without complications
CPT/HCPCS: 36415; 80053; 80061; 82043; 82570; 84153

== ENCOUNTER → 2024-05-19 | Outpatient (CLI) | payer MEDICARE, SELFPAY ==
[2024-05-19 18:30] LABS: Microalbumin,Random Urine < 5.0 mg/L (NO RANGE EST.)
[2024-05-19 18:35] LABS: ALB/GLOB Ratio 0.9 RATIO (0.9-2.4); AST(SGOT) 8 U/L (15-37); Alanine Aminotransfer ALT/SGPT 13 U/L (16-61); Albumin, Serum 3.6 g/dL (3.2-5.0); Alkaline Phosphatase 102 U/L (45-117); Anion Gap 5 (5-15); BUN 17 mg/dL (7-18); BUN/Creat Ratio 10.6 RATIO (10-20); Calcium,Total 10.1 mg/dL (8.5-10.1); Chloride 103 mmol/L (98-107); Cholesterol 123 mg/dL (200); EST Glomerular Filtration Rate 46 mL/min (>60); Est Glom Filt Rate - Afr Amer 55 mL/min (>60); Globulin 3.9 g/dL (2.2-4.2); Glucose 108 mg/dL (74-106); Hemoglobin A1c 6.1 % (3.8-5.6); High Density Lipoprotein 45 mg/dL; Potassium 4.4 mmol/L (3.5-5.1); Protein, Total 7.5 g/dL (6.4-8.2); Sodium Level 134 mmol/L (136-145); Triglycerides 119 mg/dL; Very Low Density Lipoprotein 24 mg/dL (5-40)
== END | disposition home or self-care (01) ==
LOC: MFPLAB 15:25
PROVIDERS: Nurse Practitioner; PCP Family Medicine; Visit Provider Family Medicine
DX: C61 Malignant neoplasm of prostate (principal); E11.9 Type 2 diabetes mellitus without complications
CPT/HCPCS: 36415; 80053; 80061; 82043; 82570; 83036; 84153

== ENCOUNTER → 2024-07-10 | Outpatient (CLI) | payer MEDICARE, SELFPAY ==
--- NOTE | 2024-07-10 07:49 | AAVD_ITS ---
Reason For Study: s/p AAA Repair Aorta Measurements Aorta Doppler Measurements Proximal aorta measures2.89cm x 2.87cm. in cross- Peak systolic flow velocities within the proximal sectional axis. aorta measure 151 cm/sec. Proximal aorta measures2.64cm. in longitudinal Peak systolic flow velocities within the mid aorta axis. measure 157 cm/sec. Mid aorta measures3.48cm x 3.43cm. in cross- sectional axis. Mid aorta measures3.23cm. in longitudinal axis. Endograft noted Mid Ao: Residual sac at mid ao measures 7.34cm x 6.89cm with an area of questionable leak vs artifact? Prox endograft: 2.57cm x 2.63cm, 2.3cm Distal Ao residual sac: 5.91cm x 6.03cm, 6.60cm Mid endograft: 2.39cm x 2.71cm, 2.20cm, 35cm/s Limb 1: 1.22cm x 1.04cm, 1.19cm, 111cm/s Limb 2: 1.01cm x 0.98cm, 1.07cm, 102cm/s. Procedure Aorta IVC Iliac vasculature or bypass grafts [id number]. Exam performed in department. VL/Abd Aortic/IVC Duplex scan Interpretation Summary Patent aortic stent graft with normal velocities throughout, no evidence of simon nosis. Increase in residual aneurysm sac to 7.34 cm with possible endoleak visualizati on within the proximal aneurysm. Ordering Physician: Winifred Obrien Referring Physician: Virgil Payton Performed By: Nafisa Perez, CLARISA, RVT
== END | disposition home or self-care (01) ==
LOC: CVS 07:49
PROVIDERS: PCP Family Medicine; Referring Provider Physician Assistant; Visit Provider Physician Assistant
DX: I71.43 Infrarenal abdominal aortic aneurysm, without rupture (principal)
CPT/HCPCS: 93978

== ENCOUNTER → 2024-07-13 | Outpatient (CLI) | payer MEDICARE, SELFPAY ==
[2024-07-13 16:10] LABS: Creatinine, Serum 1.51 mg/dL (0.70-1.30); EST Glomerular Filtration Rate 49 mL/min (>60); Est Glom Filt Rate - Afr Amer 59 mL/min (>60)
== END | disposition home or self-care (01) ==
LOC: LAB 14:45
PROVIDERS: PCP Family Medicine; Referring Provider Surgery Trauma Surgery; Visit Provider Surgery Trauma Surgery
DX: Z48.812 Encounter for surgical aftercare following surgery on the circulatory system (principal); I71.43 Infrarenal abdominal aortic aneurysm, without rupture
CPT/HCPCS: 36415; 82565

== ENCOUNTER → 2024-08-04 | Outpatient (CLI) | payer MEDICARE, SELFPAY ==
--- NOTE | 2024-08-04 06:44 | CT_ITS ---
STUDY: CTA Abdomen and Pelvis WO/W Contrast Injection REASON FOR EXAM: Male, 68 years old. s/p EVAR, evaluate for endoleak -- non-contrast, arterial phase, and delayed phase TECHNIQUE: Axial CT angiography multi-detector data acquisition was obtained following intravenous administration of IV 100mL Isovue-370 contrast. Axial images and MIP images were reconstructed from the axial data set. Post-processing of the angiographic images was performed, with multiplanar reformation and 3D reconstruction. MIPS images were obtained. Individualized dose optimization techniques were used for this CT. COMPARISON: None. FINDINGS: The visualized lung bases are unremarkable. The visualized portions of the heart are within normal limits. Normal liver. There is non-visualization of the gallbladder, which may be secondary to either contraction or a prior cholecystectomy. Normal spleen. Normal pancreas. Normal bilateral adrenal glands. No acute findings of the right kidney. No acute findings of the left kidney. Normal visualized stomach. Normal small intestine. There are multiple colonic diverticula consistent with diverticulosis. The appendix is visualized and appears normal. Mild inflammation of the sigmoid colon suggesting colitis. Normal inferior vena cava. Normal retroperitoneum. Urinary bladder wall has wall thickening. This can be related to a partially contractile state. However, a cystitis is not excluded. Urinalysis should be performed in an effort to exclude cystitis. Surgical absence of the prostate gland. Normal abdominal wall. There are diffuse degenerative changes of the visualized lumbar spine. There is an unremarkable-appearing IVC. Degenerative findings in the hips. Abdominal aorta: There are calcifications of the abdominal aorta. This is consistent for atherosclerotic disease. There is 70mm [place] abdominal aortic aneurysm. Patent internal aortobiiliac stent graft. Celiac and superior mesenteric arteries: There is mild diffuse narrowing. Inferior mesenteric artery: There is mild diffuse narrowing. Right renal artery(arteries): Renal artery stent. This is patent. Moderate stenosis. Left renal artery(arteries): Renal artery stent. This is patent. Moderate stenosis. Right common iliac artery: There is mild diffuse narrowing. Right external iliac artery: There is mild diffuse narrowing. Right internal iliac artery: Occluded artery with distal reconstitution Left common iliac artery: There is mild diffuse narrowing. Left external iliac artery: There is mild diffuse narrowing. Left internal iliac artery: Occluded artery with distal reconstitution CT/CTA Abd/Pelvis W/WO Contrast IMPRESSION: (NOT LISTED IN ORDER OF SIGNIFICANCE) There are multiple colonic diverticula consistent with diverticulosis. Urinary bladder wall has wall thickening. This can be related to a partially contractile state. However, a cystitis is not excluded. Urinalysis should be performed in an effort to exclude cystitis. There is 70mm [place] abdominal aortic aneurysm. Patent internal aortobiiliac stent graft. Right renal artery(arteries): Renal artery stent. This is patent. Moderate stenosis. Left renal artery(arteries): Renal artery stent. This is patent. Moderate stenosis. Mild inflammation of the sigmoid colon suggesting colitis. Left and right internal iliac artery: Occluded artery with distal reconstitution Other findings as above. Electronically Signed: Harpreet Costa MD at 14:42 EST ,
== END | disposition home or self-care (01) ==
PROVIDERS: PCP Family Medicine; Referring Provider Surgery Trauma Surgery; Visit Provider Surgery Trauma Surgery
DX: Z48.812 Encounter for surgical aftercare following surgery on the circulatory system (principal); I71.43 Infrarenal abdominal aortic aneurysm, without rupture
CPT/HCPCS: 74174; Q9967

== ENCOUNTER → 2024-11-13 | Outpatient (CLI) | payer MEDICARE, SELFPAY ==
[2024-11-13 15:51] LABS: Microalbumin,Random Urine < 12.0 mg/L (NO RANGE EST.); Microalbumin:Creatinine Ratio UNABLE TO CALCULATE mg/g CRE
[2024-11-13 23:22] LABS: Cholesterol 166 mg/dL (<=200); High Density Lipoprotein 45 mg/dL; Low Density Lipoprotein Calc. 96 mg/dL; Triglycerides 127 mg/dL; Very Low Density Lipoprotein 25 mg/dL (5-40); cholesterol:hdl ratio screen 3.69
[2024-11-13 23:40] LABS: ALB/GLOB Ratio 1.3 RATIO (0.9-2.4); AST(SGOT) 17 U/L (<=37); Alanine Aminotransfer ALT/SGPT 14 U/L (<=46); Albumin, Serum 4.4 g/dL (3.4-4.8); Alkaline Phosphatase 126 U/L (40-129); Anion Gap 12 (5-15); BUN 23 mg/dL (4-19); BUN/Creat Ratio 14.3 RATIO (10-20); Calcium,Total 10.7 mg/dL (7.6-11.0); Chloride 102 mmol/L (98-108); Creatinine, Serum 1.59 mg/dL (0.70-1.20); EST Glomerular Filtration Rate 46 (>60); Globulin 3.3 g/dL (2.2-4.2); Glucose 113 mg/dL (70-99); Potassium 4.8 mmol/L (3.3-5.1); Protein, Total 7.6 g/dL (5.9-8.4); Sodium Level 137 mmol/L (133-145); Total Bilirubin 0.24 mg/dL (0.00-1.30)
[2024-11-14 20:50] LABS: Hemoglobin A1c 6.4 % (<=5.6)
== END | disposition home or self-care (01) ==
LOC: MFPLAB 08:20
PROVIDERS: PCP Family Medicine; Referring Provider Family Medicine; Visit Provider Family Medicine
DX: E11.9 Type 2 diabetes mellitus without complications (principal)
CPT/HCPCS: 36415; 80053; 80061; 82043; 82570; 83036

== ENCOUNTER → 2024-12-04 | Outpatient (CLI) | payer MEDICARE, SELFPAY | END | disposition home or self-care (01) | LOC: LAB 09:02 | PROVIDERS: PCP Family Medicine; Referring Provider Urology; Visit Provider Urology | DX: C61 Malignant neoplasm of prostate (principal) | CPT/HCPCS: 36415; 84153 ==

== ENCOUNTER → 2025-05-14 | Outpatient (CLI) | payer MEDICARE, SELFPAY ==
[2025-05-14 11:26] LABS: Anion Gap 12 (5-15); BUN 22 mg/dL (4-19); BUN/Creat Ratio 13.8 RATIO (10-20); Calcium,Total 10.4 mg/dL (7.6-11.0); Carbon Dioxide 21.6 mmol/L (21.0-32.0); Chloride 104 mmol/L (98-108); Glucose 129 mg/dL (70-99); Potassium 4.7 mmol/L (3.3-5.1)
== END | disposition home or self-care (01) ==
LOC: MFPLAB 08:26
PROVIDERS: PCP Family Medicine; Visit Provider Family Medicine
DX: I10 Essential (primary) hypertension (principal)
CPT/HCPCS: 36415; 80048

== ENCOUNTER → 2025-05-28 | Outpatient (CLI) | payer MEDICARE, SELFPAY ==
--- NOTE | 2025-05-28 09:38 | ART_ITS ---
Reason For Study : Numbness and tingling Procedure A bilateral lower extremity continuous wave Doppler with analog waveform analysis,segmental pressures,and ankle brachial indexes with exercise. Left Segmental Pressures Left brachial= 148mmHg. Left posterior tibial artery = 153mmHg. Left dorsalis pedis artery = 162mmHg. Left digit = 125 mmHg. The left dorsalis pedis waveforms are triphasic. The left posterior tibial artery waveforms are triphasic. Right Segmental Pressures Right brachial= 143mmHg. Right high thigh = 165mmHg. Right low thigh = 121mmHg. Right calf = 134mmHg. Right posterior tibial artery = 130mmHg. Right dorsalis pedis artery = 125mmHg. Right digit = 98 mmHg. The right dorsalis pedis waveforms are triphasic. The right posterior tibial artery waveforms are biphasic. Indices The right ankle brachial index by the dorsalis pedis is 0.84. The right ankle brachial index by the posterior tibial artery is 0.88. The right digital-brachial index is 0.66. The right post exercise ankle brachial index is 0.56. The left ankle brachial index by the dorsalis pedis is 1.09. The left ankle brachial index by the posterior tibial artery is 1.03. The left digital-brachial index is 0.84. The left post exercise ankle brachial index is 0.93. VL/Lower Ext Art Exam w/ Exercise Interpretation Summary Right NATASHA 0.88, moderate arterial insufficiency. Doppler/PVR waveforms and segm ental pressures reveal proximal femoral disease. Right lower extremity with abnormal response to exercise and post exercise NATASHA in the moderate category. Left NATASHA 1.09, normal. TBI and Doppler/PVR waveforms of the left leg normal at rest. Left lower extremity exhibits normal response to exercise. Ordering Physician: Virgil Payton Referring Physician: VIRGIL PAYTON MD Performed By: Jocy Haley RVT
== END | disposition home or self-care (01) ==
LOC: CVS 09:37
PROVIDERS: PCP Family Medicine; Referring Provider Family Medicine; Visit Provider Family Medicine
DX: R20.2 Paresthesia of skin (principal); R20.0 Anesthesia of skin; I73.9 Peripheral vascular disease, unspecified
CPT/HCPCS: 93924

== ENCOUNTER → 2025-06-28 | Outpatient (CLI) | payer MEDICARE, SELFPAY ==
--- OUTSIDE RECORDS SUMMARY | 2025-06-28 09:40 | XMS RPT_ITS | CCD ---
Author Organization [facility]iniSy[facility] Care Team Providers Care Continuity Editor Name Role Phone Dr. Virgil Payton Primary Care Provider Dr. Virgil Payton Referring Provider Dr. Dorian Montes Attending Provider [phone] Virgil Payton MD Primary Care Provider Tian Lara MD Unavailable [phone] ERIN Rosales Attending Provider Tian Lara MD Unavailable [phone] Virgil Payton Primary Care Provider Dr. Virgil Payton Referring Provider Tito KHAN, ERIN Shelton Attending Provider [phone] Milton Tabor Attending Provider [phone] Josué Lara Referring Provider Dr. Virgil Payton Primary Care Provider Dr. Milton Tabor Attending Provider [phone] Josué Lara Referring Provider Dr. Milton Tabor Referring Provider Dr. Virgil Payton Primary Care Provider Dr. Virgil Payton Referring Provider Dr. Milton Tabor Attending Provider Dr. Dorian Montes Attending Provider Dr. Virgil Payton MD Primary Care Provider Dr. Dorian Montes MD Attending Provider Dr. Dorian Montes MD Referring Provider Sharona CALLOWAY, Dr. Rose Attending Provider Sharona CALLOWAY, Dr. Rose Referring Provider Tata BRAVO, Dr. Herman Referring Provider Skip BRAVO, Dr. Agrawal Attending Provider Tata BRAVO, Dr. Herman Attending Provider Tata BRAVO, Dr. Herman Primary Care Provider [phone] Marco BRAVO, Dr. Josué Rowe Attending Provider Marco BRAVO, Dr. Josué Rowe Referring Provider [phone] Tata BRAVO, Dr. Herman Primary Care Provider [phone] Tata BRAVO, Dr. Herman Referring Provider Sharona CALLOWAY, Dr. Rose Attending Provider Sharona CALLOWAY, Dr. Rose Referring Provider Tata BRAVO, Dr. Herman Primary Care Physician [phone] Tata BRAVO, Dr. Herman Referring Provider Sharona CALLOWAY, Dr. Rose Attending Physician Tata BRAVO, Dr. Herman Attending Physician Dorian Montes Attending Unavailable Payton, Virgil Primary Care Unavailable Payton, Virgil Referring Unavailable Marco, Josué Rowe Referring Unavailable Marco, Josué Rowe Attending Unavailable Payton, Virgil Primary Care Unavailable Payton, Virgil Primary Care Unavailable Payton, Virgil Attending Unavailable Payton, Virgil Referring Unavailable Payton, Virgil Primary Care Unavailable Payton, Virgil Attending Unavailable Sharona, Milton Attending Unavailable Payton, Virgil Primary Care Unavailable Payton, Virgil Referring Unavailable Payton, Virgil Attending Unavailable Payton, Virgil Primary Care Unavailable Payton, Virgil Referring Unavailable Payton, Vigril Primary Care Unavailable Obrien, Winifred Referring Unavailable Obrien, Winifred Attending Unavailable Sharona, Milton Referring Unavailable Sharona, Milton Attending Unavailable Payton, Virgil Primary Care Unavailable Nghia Valdivia Attending Unavailable Payton, Virgil Primary Care Unavailable Dorian Montes Referring Unavailable Dorian Montes Attending Unavailable Payton, Virgil Primary Care Unavailable Nghia Valdivia Attending Unavailable Virgil Payton Primary Care Unavailable Tata, Virgil Referring Unavailable Milton Tabor Attending Unavailable Virgil Payton Primary Care Unavailable Dorian Montes Referring Unavailable Dorian Montes Attending Unavailable Virgil Payton Primary Care Unavailable Tata, Virgil Referring Unavailable Dorian Montes Attending Unavailable Virgil Payton Primary Care Unavailable Dorian Montes Attending Unavailable Tata, Virgil Primary Care Unavailable Winifred Obrien Referring Unavailable Virgen BRAVO, Dr. Alarcon Attending Physician Medications Current Medications Medication Drug Class(es) Dates Sig (Normalized) Sig (Original) acetaminophen 325 mg / oxyCODONE hydrochloride 5 mg oral tablet (2 sources) Opioid Agonist oxyCODONE-acetam inophe n (Percocet) 5-325 MG tablet Active ALPHA LIPOIC ACID PO (6 sources) ALPHA LIPOIC ACI D PO Take by mouth daily. Active ALPHA LIPOIC ACI D PO Take by mouth daily. 0 Active amLODIPine 5 mg oral tablet (5 sources) Dihydropyridine Calcium Channel Joy Start: 08-28-2024 take 1 tablet by mouth once daily aspirin 81 mg chewable tablet (5 sources) Platelet Aggregation Inhibitor, Nonsteroidal Anti-inflammatory Drug Start: 04-06-2023 End: 05-08-2023 aspirin 81 MG chewable tablet Chew 1 tablet (81 mg) daily. Do not start before April 08, 2023. 30 tablet 0 04/08/2023 05/08/2023 Active calcium citrate 200 mg / cholecalciferol 125 unt oral tablet (9 sources) Vitamin D Start: 03-11-2023 Start: 03-11-2023 take 1 tablet by jossy th once daily Calcium Citrate-Vitamin D3 Active 1 TABLET PO DAILY March 11, 2023 12:00am Calcium Citrate / Vitamin D (9 sources) Calcium Citrate- Vitamin D (CALCIUM CITRATE + D PO) Take by mouth 2 times daily. Active Calcium Citrate- Vitamin D (CALCIUM CITRATE + D PO) Take by mouth 2 times daily. 0 Active clopidogrel 75 mg oral tablet (20 sources) P2Y12 Platelet Inhibitor Start: 02-03-2023 End: 04-07-2023 take 1 tablet by mouth once daily gabapentin 300 mg oral capsule (20 sources) Anti-epileptic Agent Start: 02-09-2023 take 300 mg by mouth once daily Gabapentin Active 300 MG PO DAILY February 09, 2023 12:00am Start: 02-03-2023 End: 04-07-2023 take 1 capsule by mouth three times daily latanoprost 0.05 mg/ml ophth almic suspension (19 sources) Prostaglandin Analog Start: 02-09-2023 Start: 01-29-2023 take 1 drop(s) into the eye(s) at bedtime latanoprost (Xalatan) 0.005 % ophthalmic solution INSTILL ONE DROP IN EACH EYE AT BEDTIME (BULK) 01/29/2023 Active metFORMIN hydrochloride 1000 mg oral tablet (20 sources) Biguanide Start: 02-21-2024 take 1 tablet by jossy th once daily Start: 02-09-2023 take 1000 mg by mout h once daily Metformin Active 1000 MG PO DAILY February 09, 2023 12:00am Start: 02-03-2023 End: 02-21-2024 take 1 tablet by mouth twice daily Metformin 1,000 mg tablet Discontinued 1000 mg PO TWICE A DAY February 09, 2023 12:00am February 21, 2024 8:34am simvastatin 40 mg oral tablet (19 sources) HMG-CoA Reductase Inhibitor Start: 02-03-2023 take 1 tablet by mouth at bedtime tamsulosin hydrochloride 0.4 mg oral capsule (20 sources) alpha-Adrenergic Joy Start: 01-17-2023 End: 04-07-2023 take 1 capsule by mouth at bedtime thioctic acid 600 mg oral capsule (5 sources) Start: 07-13-2024 take 1 capsule by mouth once daily Completed/Discontinued Medications Medication Drug Class(es) Dates Sig (Normalized) Sig (Original) acetaminophen 325 mg oral tablet (4 sources) Start: 04-06-2023 End: 04-07-2023 take 1 dose by mouth four times daily 650 mg, Oral, Every 6 hours scheduled (4 times per day), First dose on Wed04/06/23 at 1245, Phase II/On Unit Maximum dose of acetaminophen is 4000 mg from all sources in 24 hours. Start: 04-06-2023 End: 04-06-2023 acetaminophen (Tylenol) tabl et 1,000 mg atorvastatin 40 mg oral tablet (2 sources) HMG-CoA Reductase Inhibitor Start: 04-06-2023 End: 04-07-2023 take 40 mg by mouth once daily 40 mg, Oral, Daily, First dose on Wed04/06/23 at 1245, Phase II/On Unit Substituted for simvastatin (Zocor). cefixime 400 mg oral capsule (9 sources) Cephalosporin Antibacterial Start: 03-11-2023 End: 03-21-2023 take 1 capsule by mouth once daily Cefixime 400 mg capsule Discontinued 400 mg PO DAILY 10 March 11, 2023 12:00am March 20, 2023 12:00am March 21, 2023 12:03am cholecalciferol 9.52 unt/ml / glucose 357 mg/ml oral gel (2 sources) Vitamin D Start: 04-06-2023 End: 04-07-2023 glucose oral gel 15 g ciprofloxacin 500 mg oral tablet (8 sources) Quinolone Antimicrobial Start: 06-02-2023 End: 07-21-2023 take 1 tablet by mouth twice daily Ciprofloxacin Hcl (Cipro) 500 mg tablet Discontinued 500 mg PO TWICE A DAY June 02, 2023 12:00am July 21, 2023 10:58am dexamethasone 1 mg/ml / neomycin 3.5 mg/ml / polymyxin b [id number] unt/ml ophthalmic suspension (8 sources) Aminoglycoside Antibacterial, Polymyxin-class Antibacterial, Corticosteroid Start: 05-26-2023 End: 07-13-2024 Neomycin-Polymyxin B-Dexameth 3.5mg/mL-10,000 unit/mL-0.1 % drops,suspension Discontinued 1 NMA OPHTHALMIC 4 TIMES DAILY May 26, 2023 12:00am July 13, 2024 3:11pm Start: 05-26-2023 Neomycin-Polym yxin B-Dexameth Active 1 DRP OPHTHALMIC 4 TIMES DAILY May 26, 2023 12:00am 0.4 ml enoxaparin sodium 100 mg/ml prefilled syringe (2 sources) Low Molecular Weight Heparin Start: 04-06-2023 End: 04-07-2023 enoxaparin (Lovenox) syringe 40 mg famotidine 20 mg oral tablet (2 sources) Histamine-2 Receptor Antagonist Start: 04-06-2023 End: 04-06-2023 famotidine (Pepcid) tablet 20 mg glucagon (rdna) 1 mg injection (2 sources) Antihypoglycemic Agent Start: 04-06-2023 End: 04-07-2023 glucagon (human recombinant) injection 1 mg 150 ml glucose 50 mg/ml injection (4 sources) Start: 04-06-2023 End: 04-07-2023 dextrose 50 % solution 12.5 g Start: 04-06-2023 End: 04-07-2023 dextrose 5 % infusion Insulin Lispro (Humalog) injection 0-12 Units (2 sources) Start: 04-06-2023 End: 04-07-2023 Insulin Lispro (Humalog) injection 0-12 Units iopamidol (Isovue-370) 76 % injection 75 mL (2 sources) Start: 02-26-2023 End: 02-26-2023 iopamidol (Isovue-370) 76 % injection 75 mL Labetalol HCl (Normodyne, Trandate) injection 10 mg (2 sources) Start: 04-06-2023 End: 04-07-2023 10 mg, IntraVENous, Every 2 hour PRN, high blood pressure, Starting on Wed04/06/23 at 1230, Phase II/On Unit 1st Line: Give for SBP GREATER than 140 mmHG and HR GREATER than 60 BPM lisinopril 20 mg oral tablet (20 sources) Angiotensin Converting Enzyme Inhibitor Start: 04-07-2023 End: 04-07-2023 take 40 mg by mouth once daily 40 mg, Oral, Daily, First dose on Wed04/07/23 at 1800, Phase II/On Unit Start: 04-07-2023 End: 04-07-2023 take 40 mg by mouth once daily 40 mg, Oral, Daily, Fir st dose on Wed04/07/23 at 1800, Phase II/On Unit Start: 02-03-2023 take 1 tablet by mouth once da giovanni morphine injection 2 mg (2 sources) Start: 04-06-2023 End: 04-07-2023 morphine injection 2 mg ondansetron ODT (Zofran-ODT) disintegrating tablet 4 mg (2 sources) Start: 04-06-2023 End: 04-07-2023 take 1 tablet by mouth every eight hours as needed for nausea and vomiting ondansetron ODT (Zofran-ODT) disintegrating tablet 4 mg oxybutynin chloride 5 mg oral tablet (19 sources) Cholinergic Muscarinic Antagonist Start: 02-09-2023 End: 08-28-2024 take 1 tablet by mouth once daily Oxybutynin Chloride 5 mg tablet Discontinued 5 mg PO DAILY February 09, 2023 12:00am August 28, 2024 9:35am Start: 02-02-2023 take 1 tablet by jossy th twice daily oxybutynin (Ditropan) 5 MG tablet Take 5 mg by mouth 2 times daily. 02/02/2023 Active oxyCODONE hydrochloride 5 mg oral tablet (2 sources) Opioid Agonist Start: 04-06-2023 End: 04-07-2023 take 1 tablet by mouth every four hours as needed for pain 5 mg, Oral, Every 4 hours PRN, severe pain (7-10), Starting on Wed04/06/23 at 1230, Phase II/On Unit phenazopyridine hydrochloride 100 mg oral tablet (7 sources) Start: 07-07-2023 End: 07-21-2023 take 1 tablet by mouth three times daily Phenazopyridine 100 mg tablet Discontinued 100 mg PO THREE TIMES A DAY 21 09July 07, 2023 1:00am July 21, 2023 10:58am Dysuria Dysuria take one tab PO tid for dysuria 5 ml sodium chloride 9 mg/ml injection (8 sources) Start: 04-06-2023 End: 04-07-2023 10 mL, IntraVENous, Every 12 hours scheduled (2 times per day), First dose on Wed04/06/23 at 2100, Phase II/On Unit Start: 04-06-2023 End: 04-07-2023 5-250 mL/hr, IntraVENous, DE N, if patient receiving piggyback infusions and maintenance fluids are not ordered OR KVO fluids to protect IV site / prevent frequent line interruptions/ long duration, Starting on Wed04/06/23 at 1230, Phase II/On Unit For piggyback infusion, administer at same rate as piggyback for a total of 25 mL. Enter 25 mL into dose field and piggyback rate into rate field of order. If piggyback is infusing at a rate less than 100 mL/hr, enter 25 mL into dose field and 100 mL/hr into rate field of order. For KVO fluids, enter rate of 20 mL/hr or less into rate field of order. Start: 04-06-2023 End: 04-07-2023 take 10 mL intravenously once 10 mL, IntraVENous, PRN, line care, Starting on Wed04/06/23 at 1230, Phase II/On Unit After every IV line use Start: 04-06-2023 End: 04-06-2023 sodium chloride 0.9 % infusi on trospium chloride 20 mg oral tablet (2 sources) Cholinergic Muscarinic Antagonist Start: 04-06-2023 End: 04-07-2023 take 20 mg by mouth twice daily before mealtime 20 mg, Oral, 2 times daily before meals, First dose on Wed04/06/23 at 1600, Phase II/On Unit Substituted for oxybutynin (DITROPAN); fesoterodine (TOVIAZ); darifenacin (ENABLEX); solifenacin (VESICARE); tolterodine IR (DETROL); tolterodine ER (DETROL LA). Problems Active Problems Problem Classification Problem Date Documented Date Episodic/Chronic Alcohol-related disorders (13 sources) Alcohol abuse; Translations: [Alcohol abuse, uncomplicated] 08-29-2013 Chronic Aortic; peripheral; and visceral artery aneurysms (20 sources) Aneurysm of infrarenal abdominal aorta ; Translations: [Infrarenal abdominal aortic aneurysm (AAA) without rupture] Onset: 03-15-2023 02-18-2023 Chronic Cancer of prostate (20 sources) Malignant tumor of prostate; Translations: [Malignant neoplasm of prostate] Onset: 02-26-2025 02-11-2023 Chronic Diabetes mellitus without complication (1 source) Type 2 diabetes mellitus without complications; Translations: [Type 2 diabetes mellitus without complications] Onset: 11-20-2024 Chronic Essential hypertension (11 sources) Hypertensive disorder; Translations: [Essential (primary) hypertension] Onset: 05-18-2025 02-11-2023 Chronic Comment on above: CONTROLLED WITH MED Genitourinary symptoms and ill-defined conditions (11 sources) Dysuria; Translations: [Dysuria] 03-11-2023 Episodic Other aftercare (5 sources) Surgical follow-up; Translations: [Encounter for surgical aftercare following surgery on the circulatory system] 07-13-2024 Episodic Other and ill-defined cerebrovascular disease (10 sources) Cerebrovascular disease; Translations: [Cerebrovascular disease, unspecified] 02-11-2023 Chronic Other and ill-defined heart disease (10 sources) Heart disease; Translations: [Heart disease, unspecified] 02-11-2023 Chronic Other circulatory disease (13 sources) History of transient ischemic attack; Translations: [Personal history of transient ischemic attack (TIA), and cerebral infarction without residual deficits] 08-29-2013 Episodic Other nervous system disorders (1 source) Paresthesia of skin; Translations: [Paresthesia of skin] Onset: 06-08-2025 Episodic Other screening for suspected conditions (not mental disorders or infectious disease) (7 sources) Patient encounter status; Translations: [Encounter for screening for malignant neoplasm of colon] 09-05-2024 Episodic Residual codes; unclassified (13 sources) Tobacco user; Translations: [Tobacco use] 08-29-2013 Episodic Unclassified (1 source) Infrarenal abdominal aortic aneurysm, without rupture; Translations: [Infrarenal abdominal aortic aneurysm, without rupture] Onset: 08-07-2024 Past or Other Problems Problem Classification Problem Date Documented Da te Episodic/Chronic Other aftercare (1 source) Encounter for surgical aftercare following surgery on the circulatory system; Translations: [Encounter for surgical aftercare following surgery on the circulatory system] Onset: 09-07-2024 Episodic Results Test Name Value Interpretation Reference Range Facility Arterial study reportOrdered By: Dorian Montes on 05-28-2025 Noninvasive arteriosclerosis study report [facility] [address] [place] [address]. [place] [address] Lower Ext Art Exam w/ Exercise 05/28/25 0942 MR#: [id number] Acct: [id number] Name: YAAKOV WELLS Rep #:[id number] : 1955 69 From: Dorian Leigh Attending Dr: Dr. Virgil Payton MD Status: REG CLI Ordering Dr: Virgil Payton MD Date: Location: CVS Sex: M C Admitted: Reason For Study : Numbness and tingling Procedure A bilateral lower extremity continuous wave Doppler with analog waveform analysis,segmental pressures,and ankle brachial indexes with exercise. Left Segmental Pressures Left brachial= 148mmHg. Left posterior tibial artery = 153mmHg. Left dorsalis pedis artery = 162mmHg. Left digit = 125 mmHg. The left dorsalis pedis waveforms are triphasic. The left posterior tibialartery waveforms are triphasic. Right Segmental Pressures Right brachial= 143mmHg. Right high thigh = 165mmHg. Right low thigh = 121mmHg. Right calf = 134mmHg. Right posterior tibial artery = 130mmHg. Right dorsalis pedis artery = 125mmHg. Right digit = 98mmHg. The right dorsalis pedis waveforms are triphasic. The right posterior tibial artery waveforms are biphasic. Indices The right ankle brachial index by the dorsalis pedis is 0.84. The right ankle brachial index by the posterior tibial artery is 0.88. The right digital-brachial index is 0.66. The right post exercise ankle brachial index is 0.56. The left ankle brachial index by the dorsalis pedis is 1.09. The left ankle brachial index by the posterior tibial artery is 1.03. The left digital-brachial index is 0.84. The left post exercise ankle brachial index is 0.93. VL/Lower Ext Art Exam w/ Exercise Interpretation Summary Right NATASHA 0.88, moderate arterial insufficiency. Doppler/PVR waveforms and segmental pressures reveal proximal femoral disease. Right lower extremity with abnormal response to exercise and post exercise NATASHA in the moderate category. Left NATASHA 1.09, normal. TBI and Doppler/PVR waveforms of the left leg normal at rest. Left lower extremity exhibits normal response to exercise. Ordering Physician: Virgil Payton Referring Physician: VIRGIL PAYTON MD Performed By: Jocy Haley RVT 05/28/25 1709 Date _ Dorian Montes MD CC: Dr. Virgil Payton MD ~ Date Dictated: 05/28/25941 Date Transcribed: 05/28/251707 Performance Improvement Specialist: Signed [facility] Work Phone: Lower Ext Art Exam w/ Exerci martin 05-28-2025 Lower Ext Art Exam w/ Exercise [facility] [place] [address] [place] [address] Lower Ext Art Exam w/ Exercise 05/28/25941 MR#: [id number] Acct: [id number] Name: YAAKOV WELLS Rep #: [id number] : 1955 69 From: Dorian Montes MD Attending Dr: Dr. Virgil Payton MD Status: REG CLI Ordering Dr: Virgil Payton MD Date: 05/28/25 Location: [facility] Sex: M C Admitted: Reason For Study : Numbness and tingling Procedure A bilateral lower extremity continuous wave Doppler with analog waveform analysis,segmental pressures,and ankle brachial indexes with exercise. Left Segmental Pressures Left brachial= 148mmHg. Left posterior tibial artery = 153mmHg. Left dorsalis pedis artery = 162mmHg. Left digit = 125 mmHg. The left dorsalis pedis waveforms are triphasic. The left posterior tibial artery waveforms are triphasic. Right Segmental Pressures Right brachial= 143mmHg. Right high thigh = 165mmHg. Right low thigh = 121mmHg. Right calf = 134mmHg. Right posterior tibial artery = 130mmHg. Right dorsalis pedis artery = 125mmHg. Right digit = 98 mmHg. The right dorsalis pedis waveforms are triphasic. The right posterior tibial artery waveforms are biphasic. Indices The right ankle brachial index by the dorsalis pedis is 0.84. The right ankle brachial index by the posterior tibial artery is 0.88. The right digital-brachial index is 0.66. The right post exercise ankle brachial index is 0.56. The left ankle brachial index by the dorsalis pedis is 1.09. The left ankle brachial index by the posterior tibial artery is 1.03. The left digital-brachial index is 0.84. The left post exercise ankle brachial index is 0.93. VL/Lower Ext Art Exam w/ Exercise Interpretation Summary Right NATASHA 0.88, moderate arterial insufficiency. Doppler/PVR waveforms and segmental pressures reveal proximal femoral disease. Right lower extremity with abnormal response to exercise and post exercise NATASHA in the moderate category. Left NATASHA 1.09, normal. TBI and Doppler/PVR waveforms of the left leg normal at rest. Left lower extremity exhibits normal response to exercise. Ordering Physician: Virgil Payton Referring Physician: VIRGIL PAYTON MD Performed By: Jocy Haley RVT 05/28/251708 Date Dorian Montes MD CC: Dr. Virgil Payton MD Date Dictated: 05/28/25941 Date Transcribed: 05/28/251707 Performance Improvement Specialist: Signed Normal [facility] Anion gap in Serum or Plasma Ordered By: Virgil Payton on 05-14-2025 Anion gap [Moles/Vol] 12 mmol/L 01-04 [facility] BUN/creatinine ratioOrdered By: Virgil Payton on 05-14-2025 Urea nitrogen/Creatinine [Mass ratio] 13.8 mg/mg 06-11 [facility] Basic Metabolic Profile (BMP )on 05-14-2025 BUN/CRE 13.8 RATIO Normal 06-11 [facility] Comment on above: Performed By: #### L 500.2500 #### [facility] [address] [place], [place], [address] Calcium [Mass/Vol] 10.4 mg/dL Normal 7.6-11.0 [facility] Comment on above: Performed By: #### L 500.2500 #### [facility] [address] [place], [address] Chloride [Moles/Vol] 104 mmol/L Normal 98-108 [facility] Comment on above: Performed By: #### L 500.2500 #### [facility] [address] [place], [address] CO2 [Moles/Vol] 21.6 mmol/L Normal 21.0-32.0 [facility] Comment on above: Performed By: #### L 500.2500 #### [facility] [address] [place], [address] Creatinine [Mass/Vol] 1.58 mg/dL High 0.70-1.20 [facility] Comment on above: Performed By: #### L 500.2500 #### [facility] [address] [place], [address] GAP 12 Normal 5-15 [facility] Comment on above: Performed By: #### L 500.2500 #### [facility] [address] [place], [address] GFR/1.73 sq M.predicted among non-blacks MDRD (S/P/Bld) [Vol rate/Area] 46 mL/min/{1.73_m2} Low >60 [facility] Comment on above: Result Comment: mL/m in/1.73m2 CKD-EPI Creatinine Equation (2020) Performed By: #### L 500.2500 #### [facility] [address] [place], [address] Glucose [Mass/Vol] 129 mg/dL High 70-99 [facility] Comment on above: Performed By: #### L 500.2500 #### [facility] [address] [place], [address] Potassium [Moles/Vol] 4.7 mmol/L Normal 3.3-5.1 [facility] Comment on above: Performed By: #### L 500.2500 #### [facility] [address] [place], [place], [address] Sodium [Moles/Vol] 137 mmol/L Normal 133-145 [facility] Comment on above: Performed By: #### L 500.2500 #### [facility] [address] [place], [place], [address] Urea nitrogen [Mass/Vol] 22 mg/dL High 4-19 [facility] Comment on above: Performed By: #### L 500.2500 #### [facility] [address] [place], [place], [id number] Carbon dioxide, total [Moles /volume] in Central venous bloodOrdered By: Virgil Payton on 05-14-2025 CO2 [Moles/Vol] 21.6 mmol/L 21.0-32.0 [facility] Chloride assayOrdered By: Erin Payton on 05-14-2025 Chloride [Moles/Vol] 104 mmol/L 98-108 [facility] Glomerular filtration rate ( GFR) estimation/1.73 sq m using serum, plasma, or whole bOrdered By: Virgil Payton on 05-14-2025 GFR/1.73 sq M.predicted among non-blacks MDRD (S/P/Bld) [Vol rate/Area] 46 mL/min/{1.73_m2} Low >60 [facility] Comment on above: mL/min/1.73m2 CKD-EP I Creatinine Equation (2020) Potassium measurement (mass/ volume)Ordered By: Virgil Payton on 05-14-2025 Potassium (Unsp spec) [Mass/Vol] 4.7 mmol/L 3.3-5.1 [facility] Serum creatinine measurement (mass/volume)Ordered By: Virgil Payton on 05-14-2025 Creatinine [Mass/Vol] 1.58 mg/dL High 0.70-1.20 [facility] Serum glucose measurement (m ass/volume)Ordered By: Virgil Payton on 05-14-2025 Glucose [Mass/Vol] 129 mg/dL High 70-99 [facility] Serum or plasma calcium durga urement (mass/volume)Ordered By: Virgil Payton on 05-14-2025 Calcium [Mass/Vol] 10.4 mg/dL 7.6-11.0 [facility] Serum or plasma urea nitroge n measurement (mass/volume)Ordered By: Virgil Payton on 05-14-2025 Urea nitrogen [Mass/Vol] 22 mg/dL High 4-19 [facility] Sodium levelOrdered By: Virgil Payton on 05-14-2025 Sodium [Moles/Vol] 137 mmol/L 133-145 [facility] PSA,Total- Diagnosticon 07- PSA, DIAGNOSTIC 0.07 ng/mL Normal 0.00-4.00 [facility] Comment on above: Result Comment: This test was performed using the [employer] tPSA method. Measured values of a patient??sample can vary depending on the testing procedure used. PSA values determined on patient samples by different testing procedures cannot be used interchangeably. If there is a change in PSA assays while monitoring therapy, sequential testing should be performed to confirm baseline values. Performed By: #### L 501.9940 #### [facility] Laboratory [address] [place], [address] Radiation Oncology Visiton 0 02-26-2025 Radiation Oncology Visit [facility] [address] [place] [address] OFFICE VISIT Date of Service: 02/26/25826 MR#: [id number] Acct: [id number] Name: YAAKOV WELLS Margarita Rep #: [id number] : 1955 From: Milton Tabor DO Age/Sex: 69/M [place] [facility] [place] Status: Signed Intake Vital Signs 08/28/24 08:34 02/26/25 08:29 Height 5 ft 10 in 5 ft 9 in Weight: 176 lb 9 oz BMI 26.0 BP 175/75 H Blood Pressure Location Rt brachial Position Sitting Respiration 18 Pulse 69 Pulse Source Monitor Temp 96.8 F L Temperature Source Temporal Artery Pulse Oximetry (%) 97 Oxygen Delivery Method room air Intake Visit Reasons: 6 MONTH F/U PROSTATE, PSA PRIOR Is patient in pain?: No Allergies No Known Allergies Allergy (Verified 02/26/25 08:32) Medications ???Medication ???Instructions ???Recorded ???Confirmed ???Type clopidogrel 75 mg tablet 75 mg PO DAILY 02/09/23 02/26/25 H istory gabapentin 300 mg capsule 300 mg PO TID 02/09/23 02/26/25 Hi story latanoprost 0.005 % eye drops, 1 drp ophthalmic (eye) DAILY 02/0902/26/25 History emulsion lisinopril 40 mg tablet 40 mg PO DAILY 02/09/23 02/26/25 H istory simvastatin 40 mg tablet 40 mg PO QHS 02/09/23 02/26/25 His tory tamsulosin 0.4 mg capsule 0.4 mg PO QHS 02/09/23 02/26/25 Hi story calcium 200 mg (as 1 tab PO DAILY 03/11/23 02/26/25 H istory citrate)-vitamin D3 3.125 mcg (125 unit) tablet metformin 1,000 mg tablet 1,000 mg PO DAILY 02/21/24 5 History alpha lipoic acid 600 mg capsule 600 mg PO QDAY 07/13/24 02/26/25 H istory amlodipine 5 mg tablet 5 mg PO QDAY 08/28/24 02/26/25 His tory Have you fallen in the past year?: No PFSH PFSH Medical History Wears hearing aid Blurry vision Wears glasses Cancer Alcohol use Diabetes Bladder disease Neck pain TIA (transient ischemic attack) Difficulty chewing Constipation CPAP (continuous positive airway pressure) dependence Shortness of breath on exertion Smoker Chronic cough History of pain when walking History of edema AAA (abdominal aortic aneurysm) Abnormal prostate biopsy ( 12/2022) Hearing loss Phlebitis and thrombophlebitis of deep vein of lower extremity Cerebrovascular disease History of nocturia Hypertension Dysuria Bronchitis Prostatic hyperplasia, benign localized Incomplete bladder emptying Heart disease Prostate cancer Home Medications ???Medication ???Instructions ???Recorded ???Last Taken ???Type clopidogrel 75 mg tablet 75 mg PO DAILY 02/09/23 05/27/23 H istory gabapentin 300 mg capsule 300 mg PO TID 02/09/23 06/02/23 Hi story latanoprost 0.005 % eye drops, 1 drp ophthalmic (eye) DAILY 02/0906/02/23 History emulsion lisinopril 40 mg tablet 40 mg PO DAILY 02/09/23 06/02/23 0 4:45 History simvastatin 40 mg tablet 40 mg PO QHS 02/09/23 Unknown Hist ory tamsulosin 0.4 mg capsule 0.4 mg PO QHS 02/09/23 Unknown His tory calcium 200 mg (as 1 tab PO DAILY 03/11/23 06/02/23 H istory citrate)-vitamin D3 3.125 mcg (125 unit) tablet metformin 1,000 mg tablet 1,000 mg PO DAILY 02/21/24 Unknown History alpha lipoic acid 600 mg capsule 600 mg PO QDAY 07/13/24 Unknown Hi story amlodipine 5 mg tablet 5 mg PO QDAY 08/28/24 Unknown Hist ory Allergy/AdvReac Type Severity Reaction Status Date / Time No Known Allergies Allergy Verified 02/26/25 08:32 Family History Mother Cancer Arthritis Hypertension Father Diabetes Hypertension Surgical History S/P AAA (abdominal aortic aneurysm) repair Hx of cardiac catheterization Social History Smoking Status: Heavy Smoker (>10/day) alcohol intake: current Diagnosis: Yaakov Wells is a 69-year-old old male diagnosed with 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 From 06/21/2023 ??? 07/29/2023 he received definitive radiation therapy with ADT. History of Present Illness: 01/12/2023: Patient completed TRUS guided prostate biopsy.??? Pathology demonstrated Imbler 3+4 adenocarcinoma involving less than 5% of 1/1 core in the right prostate apex, less than 5% of 1/2 cores in the right prostate base, about 90% of 1/1 core in the left prostate apex, greater than 95% of 2/2 cores involving the left prostate mid, and greater than 95% of 2/2 cores in the left prostate base.??? 3 biopsies did not contain malignancy. 01/27/2023: Bone scan was performed.??? This demonstrated no evidence for osseous d (more content not included)... Normal [facility] Diagnostic total prostate sp ecific antigen (PSA) measurementOrdered By: Josué Lara on 12-04-2024 Prostate Specific Antigen Total 0.10 ng/mL 0.00-4.00 [facility] Comment on above: This test was perfor med using the [employer] tPSA method. Measured values of a patient sample can vary depending on the testing procedure used. PSA values determined on patient samples by different testing procedures cannot be used interchangeably. If there is a change in PSA assays while monitoring therapy, sequential testing should be performed to confirm baseline values. PSA,Total- Diagnosticon 11-21 PSA, DIAGNOSTIC 0.10 ng/mL Normal 0.00-4.00 [facility] Comment on above: Result Comment: This test was performed using the [employer] tPSA method. Measured values of a patient??sample can vary depending on the testing procedure used. PSA values determined on patient samples by different testing procedures cannot be used interchangeably. If there is a change in PSA assays while monitoring therapy, sequential testing should be performed to confirm baseline values. Performed By: #### L 501.9940 #### [facility] Laboratory [address] [place], [address] Hemoglobin A1con 11-14-2024 HbA1c (Bld) [Mass fraction] 6.4 % Normal <=5.6 [facility] Comment on above: Performed By: #### L 500.4050, L500.4100, L501.9985, L502.0250 ####[facility] [address] [place], [address] Albumin DL <= 20 mg/L (U) [M ass/Vol]Ordered By: Virgil Payton on 11-13-2024 Urine Random Microalbumin < 12.0 mg/L NO RANGE EST. [facility] Anion gap in Serum or Plasma Ordered By: Virgil Payton on 11-13-2024 Anion gap [Moles/Vol] 12 mmol/L 5-15 [facility] BUN/creatinine ratioOrdered By: Virgil Payton on 11-13-2024 Urea nitrogen/Creatinine [Mass ratio] 14.3 mg/mg 10-20 [facility] Bilirubin, totalOrdered By: Virgil Payton on 11-13-2024 Bilirubin [Mass/Vol] 0.24 mg/dL 0.00-1.30 [facility] Calculated very low density lipoprotein (VLDL) cholesterol measurementOrdered By: Virgil Payton on 11-13-2024 Calculated very low density lipoprotein (VLDL) cholesterol measurement 25 mg/dL [facility] VLDL Cholesterol 25 mg/dL [facility] Carbon dioxide, total [Moles /volume] in Central venous bloodOrdered By: Virgil Payton on 11-13-2024 CO2 [Moles/Vol] 22.0 mmol/L 21.0-32.0 [facility] Chloride assayOrdered By: Erin Payton on 11-13-2024 Chloride [Moles/Vol] 102 mmol/L 98-108 [facility] Comprehensive Metabolic Prof ilon 11-13-2024 Albumin [Mass/Vol] 4.4 g/dL Normal 3.4-4.8 [facility] Comment on above: Performed By: #### L 500.4050, L500.4100, L501.9985, L502.0250 ####[facility] [address] [place], [address] Albumin/Globulin [Mass ratio] 1.3 {ratio} Normal 0.9-2.4 [facility] Comment on above: Performed By: #### L 500.4050, L500.4100, L501.9985, L502.0250 ####[facility] [id number] [place], [address] ALK PHOS 126 U/L Normal 40-129 [facility] Comment on above: Performed By: #### L 500.4050, L500.4100, L501.9985, L502.0250 ####[facility] [address] [place], [address] ALT [Catalytic activity/Vol] 14 U/L Normal <=46 [facility] Comment on above: Performed By: #### L 500.4050, L500.4100, L501.9985, L502.0250 ####[facility] [address] [place], [address] AST [Catalytic activity/Vol] 17 U/L Normal <=37 [facility] Comment on above: Performed By: #### L 500.4050, L500.4100, L501.9985, L502.0250 ####[facility] [address] [place], [address] Bilirubin [Mass/Vol] 0.24 mg/dL Normal 0.00-1.30 [facility] Comment on above: Performed By: #### L 500.4050, L500.4100, L501.9985, L502.0250 ####[facility] [address] [place], [address] BUN/CRE 14.3 RATIO Normal 10-20 [facility] Comment on above: Performed By: #### L 500.4050, L500.4100, L501.9985, L502.0250 ####[facility] [address] [place], [address] Calcium [Mass/Vol] 10.7 mg/dL Normal 7.6-11.0 [facility] Comment on above: Performed By: #### L 500.4050, L500.4100, L501.9985, L502.0250 ####[facility] [address] [place], [address] Chloride [Moles/Vol] 102 mmol/L Normal 98-108 [facility] Comment on above: Performed By: #### L 500.4050, L500.4100, L501.9985, L502.0250 ####[facility] [address] [place], [address] CO2 [Moles/Vol] 22.0 mmol/L Normal 21.0-32.0 [facility] Comment on above: Performed By: #### L 500.4050, L500.4100, L501.9985, L502.0250 ####[facility] [address] [place], [address] Creatinine [Mass/Vol] 1.59 mg/dL High 0.70-1.20 [facility] Comment on above: Performed By: #### L 500.4050, L500.4100, L501.9985, L502.0250 ####[facility] [address] [place], [address] GAP 12 Normal 5-15 [facility] Comment on above: Performed By: #### L 500.4050, L500.4100, L501.9985, L502.0250 ####[facility] [address] [place], [address] GFR/1.73 sq M.predicted among non-blacks MDRD (S/P/Bld) [Vol rate/Area] 46 mL/min/{1.73_m2} Low >60 [facility] Comment on above: Result Comment: mL/m in/1.73m2 CKD-EPI Creatinine Equation (2020) Performed By: #### L 500.4050, L500.4100, L501.9985, L502.0250 ####[facility] [address] [place], [address] Globulin (S) [Mass/Vol] 3.3 g/dL Normal 2.2-4.2 [facility] Comment on above: Performed By: #### L 500.4050, L500.4100, L501.9985, L502.0250 ####[facility] [address] [place], [address] Glucose [Mass/Vol] 113 mg/dL High 70-99 [facility] Comment on above: Performed By: #### L 500.4050, L500.4100, L501.9985, L502.0250 ####[facility] [address] [place], [address] Potassium [Moles/Vol] 4.8 mmol/L Normal 3.3-5.1 [facility] Comment on above: Performed By: #### L 500.4050, L500.4100, L501.9985, L502.0250 ####[facility] [address] [place], [address] Sodium [Moles/Vol] 137 mmol/L Normal 133-145 [facility] Comment on above: Performed By: #### L 500.4050, L500.4100, L501.9985, L502.0250 ####[facility] [address] [place], [address] T PROT 7.6 g/dL Normal 5.9-8.4 [facility] Comment on above: Performed By: #### L 500.4050, L500.4100, L501.9985, L502.0250 ####[facility] [address] [place], [address] Urea nitrogen [Mass/Vol] 23 mg/dL High 4-19 [facility] Comment on above: Performed By: #### L 500.4050, L500.4100, L501.9985, L502.0250 ####[facility] [address] [place], [address] Creatinine Unsp time (U) [Ma ss/Vol]Ordered By: Virgil Payton on 11-13-2024 Creatinine (U) [Mass/Vol] 36.70 mg/dL Low 39.00-259.00 [facility] GFR/1.73 sq M.predicted candice g non-blacks MDRD (S/P/Bld) [Vol rate/Area]Ordered By: Virgil Payton on 11-13-2024 Estimated GFR (MDRD) Non-Af Amer 46 Low >60 [facility] Comment on above: mL/min/1.73m2 CKD-EP I Creatinine Equation (2020) Glomerular filtration rate ( GFR) estimation/1.73 sq m using serum, plasma, or whole bOrdered By: Virgil Payton on 11-13-2024 GFR/1.73 sq M.predicted among non-blacks MDRD (S/P/Bld) [Vol rate/Area] 46 mL/min/{1.73_m2} Low >60 [facility] Comment on above: mL/min/1.73m2 CKD-EP I Creatinine Equation (2020) Hemoglobin A1c percentageOrd ered By: Virgil Payton on 11-13-2024 HbA1c (Bld) [Mass fraction] 6.4 % >5.7 [facility] LDL calc ser/plasOrdered By: Virgil Payton on 11-13-2024 Cholesterol in LDL [Mass/Vol] 96 mg/dL [facility] Comment on above: Zxybbnkisb=198-257 m g/dL & Higher Njzo=125 mg/dL or greater LDL Cholesterol, Calculated 96 mg/dL [facility] Comment on above: Vzzpabwqnz=729-297 m g/dL & Higher Mvyn=464 mg/dL or greater Laboratory - Chemistry and C hemistry - challengeOrdered By: Virgil Payton on 11-13-2024 AST [Catalytic activity/Vol] 17 U/L <38 [facility] Lipid Profileon 11-13-2024 CHOL:HDL 3.[address] [facility] Comment on above: Performed By: #### L 500.4050, L500.4100, L501.9985, L502.0250 ####[facility] [address] [place], [address] Cholesterol [Mass/Vol] 166 mg/dL Normal <=200 [facility] Comment on above: Result Comment: Chol esterol level, Desirable <200 mg/dL Borderline high cholesterol 200-239 mg/dL High cholesterol >=240 mg/dL Recommendations of the NCEP Adult Treatment Panel for the following risk-cutoff thresholds for the [place] population. Performed By: #### L 500.4050, L500.4100, L501.9985, L502.0250 ####[facility] [address] [place], [address] Cholesterol in HDL [Mass/Vol] 45 mg/dL Normal [facility] Comment on above: Result Comment: Christa onal Cholesterol Education Program (NCEP) guidelines: <40 mg/dL: Low HDL-cholesterol (major risk factor for CHD) >= 60 mg/dL: High HDL-cholesterol (negative risk factor for CHD) HDL-cholesterol is affected by a number of factors, e.g. smoking, exercise, hormones, sex and age. Performed By: #### L 500.4050, L500.4100, L501.9985, L502.0250 ####[facility] [address] [place], [address] Cholesterol in LDL [Mass/Vol] 96 mg/dL Normal [facility] Comment on above: Result Comment: Bord ikzzjc=216-251 mg/dL Higher Eqqn=331 mg/dL or greater Performed By: #### L 500.4050, L500.4100, L501.9985, L502.0250 ####[facility] [address] [place], [address] Cholesterol in VLDL [Mass/Vol] 25 mg/dL Normal 5-40 [facility] Comment on above: Performed By: #### L 500.4050, L500.4100, L501.9985, L502.0250 ####[facility] [address] [place], [address] Triglyceride [Mass/Vol] 127 mg/dL Normal [facility] Comment on above: Result Comment: The drugs N-Acetylcysteine and Metamizole may falsely depress this assay. Normal range: <150 mg/dL Borderline High: 150-199 mg/dL High: 200-499 mg/dL Very High: >500 mg/dL Performed By: #### L 500.4050, L500.4100, L501.9985, L502.0250 ####[facility] [address] [place], [address] Microalb:Creat Ratio,Random URon 11-13-2024 Creatinine [Mass/Vol] 36.70 mg/dL Low 39.00-259.00 [facility] Comment on above: Performed By: #### L 500.4050, L500.4100, L501.9985, L502.0250 ####[facility] [address] [place], [address] MALB:CREAT UNABLE TO CALCULATE Normal [facility] Comment on above: Performed By: #### L 500.4050, L500.4100, L501.9985, L502.0250 ####[facility] [address] [place], [address] MICROALBUMIN,UR < 12.0 Normal NO RANGE EST. [facility] Comment on above: Performed By: #### L 500.4050, L500.4100, L501.9985, L502.0250 ####[facility] [address] [place], [address] Microalbumin/creat ratio urO rdered By: Virgil Payton on 11-13-2024 Urine Microalbumin/Creatinine Ratio UNABLE TO CALCULATE mg/g CRE [facility] Urine microalbumin/creatinine ratio measurement UNABLE TO CALCULATE mg/g CRE [facility] Potassium (Unsp spec) [Mass/ Vol]Ordered By: Virgil Payton on 11-13-2024 Potassium [Moles/Vol] 4.8 mmol/L 3.3-5.1 [facility] Potassium measurement (mass/ volume)Ordered By: Virgil Payton on 11-13-2024 Potassium (Unsp spec) [Mass/Vol] 4.8 mmol/L 3.3-5.1 [facility] Random urine creatinine durga urement (mass/volume)Ordered By: Virgil Payton on 11-13-2024 Creatinine Unsp time (U) [Mass/Vol] 36.70 mg/dL Low 39.00-259.00 [facility] Screening total cholesterol/ high density lipoprotein (HDL) cholesterol ratioOrdered By: Virgil Payton on 11-13-2024 Cholesterol.total/Choles terol in HDL [Mass ratio] 3.69 {ratio} [facility] Serum creatinine measurement (mass/volume)Ordered By: Virgil Payton on 11-13-2024 Creatinine [Mass/Vol] 1.59 mg/dL High 0.70-1.20 [facility] Serum globulin measurementOr dered By: Virgil Payton on 11-13-2024 Globulin (S) [Mass/Vol] 3.3 g/dL 2.2-4.2 [facility] Serum glucose measurement (m ass/volume)Ordered By: Virgil Payton on 11-13-2024 Glucose [Mass/Vol] 113 mg/dL High 70-99 [facility] Serum or plasma alanine diaz otransferase (ALT) measurementOrdered By: Virgil Payton on 11-13-2024 ALT [Catalytic activity/Vol] 14 U/L <47 [facility] Serum or plasma albumin durga urement (mass/volume)Ordered By: Virgil Payton on 11-13-2024 Albumin [Mass/Vol] 4.4 g/dL 3.4-4.8 [facility] Serum or plasma albumin/glob ulin mass ratioOrdered By: Virgil Payton on 11-13-2024 Albumin/Globulin [Mass ratio] 1.3 {ratio} 0.9-2.4 [facility] Serum or plasma alkaline aquiles sphatase measurementOrdered By: Virgil Payton on 11-13-2024 ALP [Catalytic activity/Vol] 126 U/L 40-129 [facility] Serum or plasma calcium durga urement (mass/volume)Ordered By: Virgil Payton on 11-13-2024 Calcium [Mass/Vol] 10.7 mg/dL 7.6-11.0 [facility] Serum or plasma cholesterol in HDL measurement (mass/volume)Ordered By: Virgil Payton on 11-13-2024 Cholesterol in HDL [Mass/Vol] 45 mg/dL >40 [facility] Comment on above: National Cholesterol Education Program (NCEP) guidelines:<40 mg/dL: Low HDL-cholesterol (major risk factor for CHD)>= 60 mg/dL: High HDL-cholesterol (negative risk factor for CHD)HDL-cholesterol is affected by a number of factors, e.g. smoking, exercise, hormones, sex and age. Serum or plasma cholesterol measurement (mass/volume)Ordered By: Virgil Payton on 11-13-2024 Cholesterol [Mass/Vol] 166 mg/dL <201 [facility] Comment on above: Cholesterol level, D esirable <200 mg/dLBorderline high cholesterol 200-239 mg/dLHigh cholesterol >=240 mg/dLRecommendations of the NCEP Adult Treatment Panel for the following risk-cutoff thresholds for the [place] population. Serum or plasma urea nitroge n measurement (mass/volume)Ordered By: Virgil Payton on 11-13-2024 Urea nitrogen [Mass/Vol] 23 mg/dL High 4-19 [facility] Sodium levelOrdered By: Virgil Payton on 11-13-2024 Sodium [Moles/Vol] 137 mmol/L 133-145 [facility] Total proteinOrdered By: Verito Payton on 11-13-2024 Protein [Mass/Vol] 7.6 g/dL 5.9-8.4 [facility] Triglycerides measurementOrd ered By: Virgil Payton on 11-13-2024 Triglyceride [Mass/Vol] 127 mg/dL <199 [facility] Comment on above: The drugs N-Acetylcy steine and Metamizole may falsely depress this assay. Normal range: <150 mg/dLBorderline High: 150-199 mg/dLHigh: 200-499 mg/dLVery High: >500 mg/dL Urine albumin measurement [facility] detection limit of 20 mg/L or less (mass/volume)Ordered By: Virgil Payton on 11-13-2024 Albumin DL <= 20 mg/L (U) [Mass/Vol] < 12.0 mg/L NO RANGE EST. [facility] Surgery Visit Reporton 09-05 Surgery Visit Report [facility] [address] [place] [address] OFFICE VISIT Date of Service: 09/05/24 MR#: [id number] Acct: [id number] Name: YAAKOV WELLS Rep #: [id number] : 1955 Provider: Dr. Nghia reza MD Age/Sex: 68/M Location: 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 Required: No Is patient in pain?: No Allergies No Known Allergies Allergy (Verified 09/05/24 14:16) Medications ???Medication ???Instructions ???Recorded ???Confirmed ???Type clopidogrel 75 mg tablet 75 mg PO DAILY 02/09/23 09/05/24 History gabapentin 300 mg capsule 300 mg PO TID 02/09/23 09/05/24 History latanoprost 0.005 % eye drops, 1 drp ophthalmic (eye) DAILY 02/09/23 09/05/24 History emulsion lisinopril 40 mg tablet 40 mg PO DAILY 02/09/23 09/05/24 History simvastatin 40 mg tablet 40 mg PO QHS 02/09/23 09/05/24 History tamsulosin 0.4 mg capsule 0.4 mg PO QHS 02/09/23 09/05/24 History calcium 200 mg (as 1 tab PO DAILY 03/11/23 09/05/24 History citrate)-vitamin D3 3.125 mcg (125 unit) tablet metformin 1,000 mg tablet 1,000 mg PO DAILY 02/21/24 09/05/24 History alpha lipoic acid 600 mg capsule 600 mg PO QDAY 07/13/24 09/05/24 History amlodipine 5 mg tablet 5 mg PO QDAY 08/28/24 09/05/24 History Have you fallen in the past year?: No PFSH Medical History (Updated 09/05/24 @ 15:[address] Nghia Valdivia MD) Wears hearing aid Blurry vision Wears glasses Cancer Alcohol use Diabetes Bladder disease Neck pain TIA (transient ischemic attack) Difficulty chewing Constipation CPAP (continuous positive airway pressure) dependence Shortness of breath on exertion Smoker Chronic cough History of pain when walking History of edema AAA (abdominal aortic aneurysm) Abnormal prostate biopsy ( 12/2022) Hearing loss Phlebitis and thrombophlebitis of deep vein of lower extremity Cerebrovascular disease History of nocturia Hypertension Dysuria Bronchitis Prostatic hyperplasia, benign localized Incomplete bladder emptying Heart disease Prostate cancer Surgical History (Updated 09/05/24 @ 14:15 by Maida Bush) S/P AAA (abdominal aortic aneurysm) repair Hx of cardiac catheterization Family History Mother Cancer Arthritis Hypertension Father Diabetes Hypertension Social History Smoking Status: Heavy Smoker (>10/day) alcohol intake: current HPI HPI HPI: Patient is a 68-year-old male who is overdue for screening colonoscopy. His last colonoscopy was 30 years ago. He denies abdominal pain or blood in the stool. He has no family history of colon cancer. ROS General General: No weight change, appetite, fatigue, colon cancer, breast cancer or weakness HEENT HEENT: No difficulty swallowing, eye injury, eye surgery, swollen glands or hoarseness Endo Endocrine: Yes diabetes mellitus; No thyroid disease, thyroid cancer, Hair loss, heat intolerance or cold intolerance Skin Skin: No rash or changing moles Breast Breast: No left breast lump, right breast lump, nipple discharge, breast pain, abnormal mammogram, abnormal US or breast enlargement Musc Musculoskeletal: No back problems, arthritis, rheumatoid arthritis, gout or joint pain Cardio Cardiovascular: Yes high blood pressure; No murmur, pacemaker, heart disease, atrial fibrillation, heart attack, heart stent, palpitations, shortness of breat with exertion or chest pain Psych Psychiatric: No depression, anxiety or hearing voices Resp Respiratory: No shortness of breath, No sleep apnea, No cough, No COPD, No asthma, No emphysema and No wheezing Gastro Gastrointestinal: No abdominal pain, No nausea or vomiting, No diarrhea, No constipation, No blood in stool, No acid reflux, No hemorrhoids, No ulcers, No gallbladder problem and No black,tarry stools Kalin Hematologic: Yes blood thinners, No blood disorders, No bleeding, No anemia and No blood clots Neuro Neurologic: No system reviewed and no additional complaints, except as documented, No as per HPI, No abnormal gait, No abnormal hearing, No abnormal movements, No abnormal speech, No behavioral changes, No burning sensations, No confusion, No convulsions, No disequilibrium, No dizziness, No localized weakness, No frequent falls, No headac (more content not included)... Normal [facility] Basic Metabolic Profile (BMP )on 08-28-2024 BUN/CRE 10.7 RATIO Normal 10-20 [facility] Comment on above: Order Comment: DR ZEYAD ALVA ORDERED TAMMY TABOR ORDERED PSAD Performed By: #### L 501.9940, L500.2500 ####[facility] [address] [place], [address] CA,Total 10.3 mg/dL High 8.5-10.1 [facility] Comment on above: Order Comment: DR ZEYAD ALVA ORDERED BMPDR SHARONA ORDERED PSAD Performed By: #### L 501.9940, L500.2500 ####[facility] [address] [place], [address] Chloride [Moles/Vol] 104 mmol/L Normal 98-107 [facility] Comment on above: Order Comment: DR ZEYAD ALVA ORDERED [facility] SHARONA ORDERED PSAD Performed By: #### L 501.9940, L500.2500 ####[facility] [address] [place], [address] CO2 [Moles/Vol] 26.0 mmol/L Normal 21.0-32.0 [facility] Comment on above: Order Comment: DR ZEYAD ALVA ORDERED BMPDR SHARONA ORDERED PSAD Performed By: #### L 501.9940, L500.2500 ####[facility] [address] [place], [address] Creatinine [Mass/Vol] 1.49 mg/dL High 0.70-1.30 [facility] Comment on above: Order Comment: DR ZEYAD ALVA ORDERED BMPDR SHARONA ORDERED PSAD Result Comment: The validity of the calculated GFR GFRAA in patients over 70 years has not been determined. Clinical correlation is essential. Performed By: #### L 501.9940, L500.2500 ####[facility] [address] [place], [address] ECRCL 47.63 ml/min Normal [facility] Comment on above: Order Comment: DR ZEYAD ALVA ORDERED TAMMY LAZCANOSTON ORDERED PSAD Performed By: #### L 501.9940, L500.2500 ####[facility] [address] [place], [address] EST GFR - AA 60 mL/min Normal >60 [facility] Comment on above: Order Comment: DR ZEYAD ALVA ORDERED [facility] SHARONA ORDERED PSAD Result Comment: Afri can Palestinian GFR Calc Performed By: #### L 501.9940, L500.2500 ####[facility] [address] [place], [address] GAP 6 Normal 5-15 [facility] Comment on above: Order Comment: DR ZEYAD ALVA ORDERED TAMMY TABOR ORDERED PSAD Performed By: #### L 501.9940, L500.2500 ####[facility] [address] [place], [address] GFR/1.73 sq M.predicted among non-blacks MDRD (S/P/Bld) [Vol rate/Area] 49 mL/min/{1.73_m2} Low >60 [facility] Comment on above: Order Comment: DR ZEYAD ALVA ORDERED TAMMY TABOR ORDERED PSAD Result Comment: Non- GFR Calc Performed By: #### L 501.9940, L500.2500 ####[facility] [address] [place], [address] Glucose [Mass/Vol] 101 mg/dL Normal 74-106 [facility] Comment on above: Order Comment: DR ZEYAD ALVA ORDERED BMPDR SHARONA ORDERED PSAD Result Comment: Fast ing Glucose result from 100 to 125 mg/dL suggests IMPAIRED HOMEOSTASIS per A.D.A. criteria. Performed By: #### L 501.9940, L500.2500 ####[facility] [address] [place], [address] Potassium [Moles/Vol] 4.1 mmol/L Normal 3.5-5.1 [facility] Comment on above: Order Comment: DR ZEYAD ALVA ORDERED TAMMY SHARONA ORDERED PSAD Performed By: #### L 501.9940, L500.2500 ####[facility] [address] [place], [address] Sodium [Moles/Vol] 136 mmol/L Normal 136-145 [facility] Comment on above: Order Comment: DR ZEYAD ALVA ORDERED [facility] SHARONA ORDERED PSAD Performed By: #### L 501.9940, L500.2500 ####[facility] [address] [place], [address] Urea nitrogen [Mass/Vol] 16 mg/dL Normal 7-18 [facility] Comment on above: Order Comment: DR ZEYAD ALVA ORDERED [facility] SHARONA ORDERED PSAD Performed By: #### L 501.9940, L500.2500 ####[facility] [address] [place], [address] Blood urea nitrogen (BUN)/cr eatinine ratioOrdered By: Milton Tabor on 08-28-2024 Urea nitrogen/Creatinine [Mass ratio] 10.7 mg/mg 10-20 [facility] Carbon dioxide measurementOr dered By: Milton Tabor on 08-28-2024 CO2 [Moles/Vol] 26.0 mmol/L 21.0-32.0 [facility] Chloride measurementOrdered By: Milton Tabor on 08-28-2024 Chloride [Moles/Vol] 104 mmol/L 98-107 [facility] Diagnostic total prostate sp ecific antigen (PSA) measurementOrdered By: Milton Tabor on 08-28-2024 Prostate Specific Antigen Total 0.16 ng/mL 0.0-4.0 [facility] Comment on above: This test was perfor med using the TPSA assay method for the[facility] chemistry system. Values obtained with differentassay methods cannot be used interchangably.When changing PSA assays in the course of monitoring apatient, additional sequential testing should be carriedout to confirm baseline values. Estimated glomerular filtrat ion rate (GFR) AmericanOrdered By: Milton Tabor on 08-28-2024 Estimated GFR (MDRD) Amer 60 mL/min >60 [facility] Comment on above: GFR Calc Estimation of creatinine prema aranceOrdered By: Milton Tabor on 08-28-2024 Estimated Creatinine Clearance Calc 47.63 ml/min [facility] Glomerular filtration rate ( GFR) estimationOrdered By: Milton Tabor on 08-28-2024 Estimated GFR (MDRD) Non-Af Amer 49 mL/min Low >60 [facility] Comment on above: Non- GFR Calc GFR/1.73 sq M.predicted among non-blacks MDRD (S/P/Bld) [Vol rate/Area] 49 mL/min/{1.73_m2} Low >60 [facility] Comment on above: Non- GFR Calc Glucose measurementOrdered B y: Milton Tabor on 08-28-2024 Glucose [Mass/Vol] 101 mg/dL 74-106 [facility] Comment on above: Fasting Glucose resu lt from 100 to 125 mg/dL suggests IMPAIRED HOMEOSTASIS per A.D.A. criteria. PSA,Total- Diagn[employer]icon PSA, DIAGNOSTIC 0.16 ng/mL Normal 0.0-4.0 [facility] Comment on above: Order Comment: DR ZEYAD ALVA ORDERED TAMMY TABOR ORDERED PSAD Result Comment: This test was performed using the TPSA assay method for the [employer] chemistry system. Values obtained with different assay methods cannot be used interchangably. When changing PSA assays in the course of monitoring a patient, additional sequential testing should be carried out to confirm baseline values. Performed By: #### L 501.9940, L500.2500 ####[facility] [address] [place], [address] Potassium measurementOrdered By: Milton Tabor on 08-28-2024 Potassium [Moles/Vol] 4.1 mmol/L 3.5-5.1 [facility] Radiation Oncology Visiton 0 08-28-2024 Radiation Oncology Visit [facility] [address] [place] [address] OFFICE VISIT Date of Service: 08/28/24830 MR#: [id number] Acct: [id number] Name: YAAKOV WELLS Rep #: [id number] : 1955 From: Milton Tabor Age/Sex: 68/M Location[place] [facility] Status: Signed Intake Vital Signs 02/21/24 08:30 08/28/24 08:34 Height 5 ft 10 in 5 ft 10 in Weight: 167 lb 2 oz BMI 24.0 BP 173/88 H Blood Pressure Location Lt brachial Position Sitting Respiration 16 Pulse 64 Pulse Source Monitor Temp 98.9 F Temperature Source Temporal Artery Pulse Oximetry (%) 96 Oxygen Delivery Method room air Intake Visit Reasons: 6 MONTH F/U PROSTATE, PSA PRIOR Is patient in pain?: No Allergies No Known Allergies Allergy (Verified 08/28/24 08:34) Medications ???Medication ???Instructions ???Recorded ???Confirmed ???Type clopidogrel 75 mg tablet 75 mg PO DAILY 02/09/23 08/28/24 History gabapentin 300 mg capsule 300 mg PO TID 02/09/23 08/28/24 History latanoprost 0.005 % eye drops, 1 drp ophthalmic (eye) DAILY 02/09/23 08/28/24 History emulsion lisinopril 40 mg tablet 40 mg PO DAILY 02/09/23 08/28/24 History simvastatin 40 mg tablet 40 mg PO QHS 02/09/23 08/28/24 History tamsulosin 0.4 mg capsule 0.4 mg PO QHS 02/09/23 08/28/24 History calcium 200 mg (as 1 tab PO DAILY 03/11/23 08/28/24 History citrate)-vitamin D3 3.125 mcg (125 unit) tablet metformin 1,000 mg tablet 1,000 mg PO DAILY 02/21/24 08/28/24 History alpha lipoic acid 600 mg capsule 600 mg PO QDAY 07/13/24 08/28/24 History amlodipine 5 mg tablet 5 mg PO QDAY 08/28/24 08/28/24 History Have you fallen in the past year?: No PFSH PFSH Medical History Wears hearing aid Blurry vision Wears glasses Cancer Alcohol use Diabetes Bladder disease Neck pain TIA (transient ischemic attack) Difficulty chewing Constipation CPAP (continuous positive airway pressure) dependence Shortness of breath on exertion Smoker Chronic cough History of pain when walking History of edema AAA (abdominal aortic aneurysm) Abnormal prostate biopsy ( 12/2022) Hearing loss Phlebitis and thrombophlebitis of deep vein of lower extremity Cerebrovascular disease History of nocturia Hypertension Dysuria Bronchitis Prostatic hyperplasia, benign localized Incomplete bladder emptying Heart disease Prostate cancer Home Medications ???Medication ???Instructions ???Recorded ???Last Taken ???Type clopidogrel 75 mg tablet 75 mg PO DAILY 02/09/23 05/27/23 History gabapentin 300 mg capsule 300 mg PO TID 02/09/23 06/02/23 History latanoprost 0.005 % eye drops, 1 drp ophthalmic (eye) DAILY 02/09/23 06/02/23 History emulsion lisinopril 40 mg tablet 40 mg PO DAILY 02/09/23 06/02/23 04:45 History simvastatin 40 mg tablet 40 mg PO QHS 02/09/23 Unknown History tamsulosin 0.4 mg capsule 0.4 mg PO QHS 02/09/23 Unknown History calcium 200 mg (as 1 tab PO DAILY 03/11/23 06/02/23 History citrate)-vitamin D3 3.125 mcg (125 unit) tablet metformin 1,000 mg tablet 1,000 mg PO DAILY 02/21/24 Unknown History alpha lipoic acid 600 mg capsule 600 mg PO QDAY 07/13/24 Unknown History amlodipine 5 mg tablet 5 mg PO QDAY 08/28/24 Unknown History Allergy/AdvReac Type Severity Reaction Status Date / Time No Known Allergies Allergy Verified 08/28/24 08:34 Family History Mother Cancer Arthritis Hypertension Father Diabetes Hypertension Surgical History Hx of cardiac catheterization Social History Smoking Status: Heavy Smoker (>10/day) alcohol intake: current Diagnosis: Yaakov Wells is a 68-year-old old male diagnosed with 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 From 06/21/2023 ??? 07/29/2023 he received definitive radiation therapy with ADT. History of Present Illness: 01/12/2023: Patient completed TRUS guided prostate biopsy.??? Pathology demonstrated Giorgi 3+4 adenocarcinoma involving less than 5% of 1/1 core in the right prostate apex, less than 5% of 1/2 cores in the right prostate base, about 90% of 1/1 core in the left prostate apex, greater than 95% of 2/2 cores involving the left prostate mid, and greater than 95% of 2/2 cores in the left prostate base.??? 3 biopsies did not contain malignancy. 01/27/2023: Bone scan was performed.??? This demonstrated no evidence for osseous disease. 02/01/2023: CT abdomen/pelvis with contrast was performed.??? This demonstrated an elongated in (more content not included)... Normal [facility] Serum anion gap measurementO rdered By: Milton Tabor on 08-28-2024 Anion gap [Moles/Vol] 6 mmol/L 5-15 [facility] Serum or plasma calcium durga urement (mass/volume)Ordered By: Milton Tabor on 08-28-2024 Calcium [Mass/Vol] 10.3 mg/dL High 8.5-10.1 [facility] Serum or plasma creatinine m easurement (mass/volume)Ordered By: Milton Tabor on 08-28-2024 Creatinine [Mass/Vol] 1.49 mg/dL High 0.70-1.30 [facility] Comment on above: The validity of the calculated GFR & GFRAA in patients over 70 years has not been determined. Clinical correlation is essential. Serum or plasma urea nitroge n measurement (mass/volume)Ordered By: Milton Tabor on 08-28-2024 Urea nitrogen [Mass/Vol] 16 mg/dL 7-18 [facility] Sodium levelOrdered By: Michael Tabor on 08-28-2024 Sodium [Moles/Vol] 136 mmol/L 136-145 [facility] CTA Abd/Pelvis W/WO Contrast on 08-04-2024 CTA Abd/Pelvis W/WO Contrast [facility] [address] [place], [place] [address] CTA Abd/Pelvis W/WO Contrast MR#: [id number] Acct: [id number] Name: YAAKOV WELLS Rep #: [id number] : 1955 M 68 From: Harpreet Leigh PCP: Dr. Virgil Payton MD Status: REG CLI Study: CTA Abd/Pelvis W/WO Contrast Date of Exam: Exam# [id number] Ordering Dr: Dorian Montes MD [id number] STUDY: CTA Abdomen and Pelvis WO/W Contrast Injection REASON FOR EXAM: Male, 68 years old. s/p EVAR, evaluate for endoleak -- non-contrast, arterial phase, and delayed phase TECHNIQUE: Axial CT angiography multi-detector data acquisition was obtained following intravenous administration of IV 100mL Isovue-370 contrast. Axial images and MIP images were reconstructed from the axial data set. Post-processing of the angiographic images was performed, with multiplanar reformation and 3D reconstruction. MIPS images were obtained. Individualized dose optimization techniques were used for this CT. COMPARISON: None. FINDINGS: The visualized lung bases are unremarkable. The visualized portions of the heart are within normal limits. Normal liver. There is non-visualization of the gallbladder, which may be secondary to either contraction or a prior cholecystectomy. Normal spleen. Normal pancreas. Normal bilateral adrenal glands. No acute findings of the right kidney. No acute findings of the left kidney. Normal visualized stomach. Normal small intestine. There are multiple colonic diverticula consistent with diverticulosis. The appendix is visualized and appears normal. Mild inflammation of the sigmoid colon suggesting colitis. Normal inferior vena cava. Normal retroperitoneum. Urinary bladder wall has wall thickening. This can be related to a partially contractile state. However, a cystitis is not excluded. Urinalysis should be performed in an effort to exclude cystitis. Surgical absence of the prostate gland. Normal abdominal wall. There are diffuse degenerative changes of the visualized lumbar spine. There is an unremarkable-appearin g IVC. Degenerative findings in the hips. Abdominal aorta: There are calcifications of the abdominal aorta. This is consistent for atherosclerotic disease. There is 70mm tununak abdominal aortic aneurysm. Patent internal aortobiiliac stent graft. Celiac and superior mesenteric arteries: There is mild diffuse narrowing. Inferior mesenteric artery: There is mild diffuse narrowing. Right renal artery(arteries): Renal artery stent. This is patent. Moderate stenosis. Left renal artery(arteries): Renal artery stent. This is patent. Moderate stenosis. Right common iliac artery: There is mild diffuse narrowing. Right external iliac artery: There is mild diffuse narrowing. Right internal iliac artery: Occluded artery with distal reconstitution Left common iliac artery: There is mild diffuse narrowing. Left external iliac artery: There is mild diffuse narrowing. Left internal iliac artery: Occluded artery with distal reconstitution CT/CTA Abd/Pelvis W/WO Contrast IMPRESSION: (NOT LISTED IN ORDER OF SIGNIFICANCE) There are multiple colonic diverticula consistent with diverticulosis. Urinary bladder wall has wall thickening. This can be related to a partially contractile state. However, a cystitis is not excluded. Urinalysis should be performed in an effort to exclude cystitis. There is 70mm tun[place]ak abdominal aortic aneurysm. Patent internal aortobiiliac stent graft. Right renal artery(arteries): Renal artery stent. This is patent. Moderate stenosis. Left renal artery(arteries): Renal artery stent. This is patent. Moderate stenosis. Mild inflammation of the sigmoid colon suggesting colitis. Left and right internal iliac artery: Occluded artery with distal reconstitution Other findings as above. Electronically Signed: Harpreet Costa MD at 14:42 EST , CC: Dr. Dorian Montes MD; Dr. Virgil Payton MD Performance Improvement Specialist: Signed Normal [facility] MR/BMS.[facility] 07-13-2024 MR/BMS.[facility] [address] [place] [address] OFFICE VISIT Date of Service: 07/13/24 MR#: [id number] Acct: [id number] Name: YAAKOV WELLS Rep #: [id number] : 1955 Provider: Dr. Dorian Montes MD Age/Sex: 68/M Location: [facility] [place] Status: Signed Intake Vital Signs 09/06/23 08:57 02/21/24 08:30 07/13/24 14:08 Height 5 ft 10 in 5 ft 10 in Weight: 166 lb BP 137/75 H Blood Pressure Location Lt radial Position Sitting Respiration 14 Pulse 97 Pulse Source Monitor Temp 97.8 F Temp Source Temporal Pulse Oximetry (%) 98 Oxygen Delivery Method room air Intake Visit Reasons: 6 M FU, DISCUSS DUPLEX RESULTS Is patient in pain?: Yes Allergies No Known Allergies Allergy (Verified 07/13/24 14:10) Medications ???Medication ???Instructions ???Recorded ???Confirmed ???Type clopidogrel 75 mg tablet 75 mg PO DAILY 02/09/23 07/13/24 History gabapentin 300 mg capsule 300 mg PO TID 02/09/23 07/13/24 History latanoprost 0.005 % eye drops, 1 drp ophthalmic (eye) DAILY 02/09/23 07/13/24 History emulsion lisinopril 40 mg tablet 40 mg PO DAILY 02/09/23 07/13/24 History oxybutynin chloride 5 mg tablet 5 mg PO DAILY 02/09/23 07/13/24 History simvastatin 40 mg tablet 40 mg PO QHS 02/09/23 07/13/24 History tamsulosin 0.4 mg capsule 0.4 mg PO QHS 02/09/23 07/13/24 History calcium 200 mg (as 1 tab PO DAILY 03/11/23 07/13/24 History citrate)-vitamin D3 3.125 mcg (125 unit) tablet metformin 1,000 mg tablet 1,000 mg PO DAILY 02/21/24 07/13/24 History alpha lipoic acid 600 mg capsule 600 mg PO QDAY 07/13/24 07/13/24 History Have you fallen in the past year?: No PFSH Medical History Wears hearing aid Blurry vision Wears glasses Cancer Alcohol use Diabetes Bladder disease Neck pain TIA (transient ischemic attack) Difficulty chewing Constipation CPAP (continuous positive airway pressure) dependence Shortness of breath on exertion Smoker Chronic cough History of pain when walking History of edema AAA (abdominal aortic aneurysm) Abnormal prostate biopsy ( 12/2022) Hearing loss Phlebitis and thrombophlebitis of deep vein of lower extremity Cerebrovascular disease History of nocturia Hypertension Dysuria Bronchitis Prostatic hyperplasia, benign localized Incomplete bladder emptying Heart disease Prostate cancer Surgical History Hx of cardiac catheterization Family History Mother Cancer Arthritis Hypertension Father Diabetes Hypertension Social History Smoking Status: Heavy Smoker (>10/day) alcohol intake: current HPI HPI HPI: YAAKOV WELLS, is a 68 M who presents to the office today for follow up of prior fenestrated EVAR for juxtarenal AAA in 04/14 at [facility]. Initial imaging was satisfactory with no evidence of endoleak or increase in aneurysm size initially. He also was diagnosed with prostate cancer around that same time and completed XRT and hormone suppression with satisfactory result. He has chronic constipation and recently had lower abdominal/pelvic pain during period where more constipated which initially resolved though has returned; mostly centered suprapubic. ROS General General: No weight change, appetite, fatigue, colon cancer, breast cancer or weakness HEENT HEENT: No difficulty swallowing, eye injury, eye surgery, swollen glands or hoarseness Endo Endocrine: Yes diabetes mellitus; No thyroid disease, thyroid cancer, Hair loss, heat intolerance or cold intolerance Skin Skin: No rash or changing moles Musc Musculoskeletal: No back problems, arthritis, rheumatoid arthritis, gout or joint pain Cardio Cardiovascular: Yes high blood pressure; No murmur, pacemaker, heart disease, atrial fibrillation, heart attack, heart stent, palpitations, shortness of breat with exertion or chest pain Psych Psychiatric: No depression, anxiety or hearing voices Resp Respiratory: Yes shortness of breath, No sleep apnea, No cough, No COPD, No asthma, No emphysema and No wheezing Gastro Gastrointestinal: Yes abdominal pain, No nausea or vomiting, Yes diarrhea, Yes constipation, No blood in stool, No acid reflux, No hemorrhoids, No ulcers, No gallbladder problem and No black,tarry stools Kalin Hematologic: Yes blood thinners, No blood disorders, No bleeding, No anemia and No blood clots Neuro Neurologic: No system reviewed and no additional complaints, except as documented, No as per HPI, No abnormal gait, Yes abnormal hearing, No abnormal movements, No abnormal speech, No behavioral c hanges, No bur (more content not included)... Normal [facility] Serum Creatinine AND GFRon 1 09-12-2023 Creatinine [Mass/Vol] 1.51 mg/dL High 0.70-1.30 [facility] Comment on above: Order Comment: PER P T-JUST VIRGEN ORDER Result Comment: The validity of the calculated GFR GFRAA in patients over 70 years has not been determined. Clinical correlation is essential. Performed By: #### L 501.1105 ####[facility] [id number] [place], [address] EST GFR - AA 59 mL/min Low >60 [facility] Comment on above: Order Comment: PER P T-JUST VIRGEN ORDER Result Comment: Afri can Palestinian GFR Calc Performed By: #### L 501.1105 ####[facility] [id number] [place], [address] GFR/1.73 sq M.predicted among non-blacks MDRD (S/P/Bld) [Vol rate/Area] 49 mL/min/{1.73_m2} Low >60 [facility] Comment on above: Order Comment: PER P T-JUST VIRGEN ORDER Result Comment: Non- GFR Calc Performed By: #### L 501.1105 ####[facility] [id number] [place], [address] Abd Aortic/IVC Duplex scanon 07-10-2024 Abd Aortic/IVC Duplex scan [facility] [address] [place] [address] Abd Aortic/IVC Duplex scan 07/10/24 0818 MR#: [id number] Acct: [id number] Name: YAAKOV WELLS Rep #: [id number] : 1955 68 From: Dorian Montes MD Attending Dr: ERIN Osuna Status: REG CLI Ordering Dr: Winifred Obrien Date: 07/10/24 Location: [facility] Sex: M C Admitted: Reason For Study: s/p AAA Repair Aorta Measurements Aorta Doppler Measurements Proximal aorta measures2.89cm x 2.87cm. in cross- Peak systolic flow velocities within the proximal sectional axis. aorta measure 151 cm/sec. Proximal aorta measures2.64cm. in longitudinal Peak systolic flow velocities within the mid aorta axis. measure 157 cm/sec. Mid aorta measures3.48cm x 3.43cm. in cross- sectional axis. Mid aorta measures3.23cm. in longitudinal axis. Endograft noted Mid Ao: Residual sac at mid ao measures 7.34cm x 6.89cm with an area of questionable leak vs artifact? Prox endograft: 2.57cm x 2.63cm, 2.3cm Distal Ao residual sac: 5.91cm x 6.03cm, 6.60cm Mid endograft: 2.39cm x 2.71cm, 2.20cm, 35cm/s Limb 1: 1.22cm x 1.04cm, 1.19cm, 111cm/s Limb 2: 1.01cm x 0.98cm, 1.07cm, 102cm/s. Procedure Aorta IVC Iliac vasculature or bypass grafts [address]. Exam performed in department. VL/Abd Aortic/IVC Duplex scan Interpretation Summary Patent aortic stent graft with normal velocities throughout, no evidence of stenosis. Increase in residual aneurysm sac to 7.34 cm with possible endoleak visualization within the proximal aneurysm. Ordering Physician: Winifred Obrien Referring Physician: Virgil Payton Performed By: Nafisa Perez, RDCS, RVT 07/10/24 1335 Date Dorian Montes MD CC: ERIN Osuna; Dr. Virgil Payton MD Date Dictated: 07/10/24817 Date Transcribed: 07/10/241334 Performance Improvement Specialist: Signed Normal [facility] Basophil percentageOrdered B y: Virgil Payton on 08-18-2023 Chloride [Moles/Vol] 105 mmol/L 98-107 [facility] Glucose [Mass/Vol] 109 mg/dL 74-106 [facility] Comment on above: Fasting Glucose resu lt from 100 to 125 mg/dL suggests IMPAIRED HOMEOSTASIS per A.D.A. criteria. Potassium [Moles/Vol] 4.5 mmol/L 3.5-5.1 [facility] Sodium [Moles/Vol] 135 mmol/L 136-145 [facility] Laboratory - Chemistry and C hemistry - challengeOrdered By: Virgil Payton on 08-18-2023 CO2 [Moles/Vol] 28.0 mmol/L 21.0-32.0 [facility] Urea nitrogen/Creatinine [Mass ratio] 16.7 mg/mg 10-20 [facility] No Panel InformationOrdered By: Virgil Payton on 08-18-2023 Estimated GFR (MDRD) Amer 108 mL/min >60 [facility] Comment on above: GFR Calc Estimated GFR (MDRD) Non-Af Amer 89 mL/min >60 [facility] Comment on above: Non- GFR Calc Prostate Specific Antigen Total 12.00 ng/mL 0.0-4.0 [facility] Comment on above: This test was perfor med using the TPSA assay method [facility] the[facility]. Values obtained with differentassay methods cannot be used interchangably.When changing PSA assays in the course of monitoring apatient, additional sequential testing should be carriedout to confirm baseline values. Serum or plasma calcium durga urement (mass/volume)Ordered By: Virgil Payton on 08-18-2023 Calcium [Mass/Vol] 10.1 mg/dL 8.5-10.1 [facility] Serum or plasma creatinine m easurement (mass/volume)Ordered By: Virgil Payton on 08-18-2023 Creatinine [Mass/Vol] 0.90 mg/dL 0.70-1.30 [facility] Comment on above: The validity of the calculated GFR & GFRAA in patients over 70 years has not been determined. Clinical correlation is essential. Serum or plasma urea nitroge n measurement (mass/volume)Ordered By: Virgil Payton on 08-18-2023 Urea nitrogen [Mass/Vol] 15 mg/dL 7-18 [facility] Thin prep Papanicolaou smear with manual screeningOrdered By: Virgil Payton on 08-18-2023 Thin prep Papanicolaou smear with manual screening 2 5-15 [facility] Basophil percentageOrdered B y: Milton Tabor on 07-07-2023 Basophil percentage 0-5 SEEN /hpf 0-5 [facility] Bilirubin Test strip Ql (U)O rdered By: Milton Tabor on 07-07-2023 Bilirubin Ql (U) Negative Negative [facility] Epithelial cells.squamous LM Ql (Urine sed)Ordered By: Milton Tabor on 07-07-2023 Epithelial cells.squamous LM.HPF (Urine sed) [#/Area] 0 /[HPF] 0-5 [facility] Glucose Ql (U)Ordered By: St erin Tabor on 07-07-2023 Urine Glucose (UA) Normal mg/dl Normal [facility] Ketones Test strip Ql (U)Ord ered By: Milton Tabor on 07-07-2023 Ketones Ql (U) Negative Negative [facility] Mucus LM Ql (Urine sed)Order ed By: Milton Tabor on 07-07-2023 Mucus Ql (Urine sed) 0 SEEN /hpf [facility] Nitrite Test strip Ql (U)Ord ered By: Milton Tabor on 07-07-2023 Nitrite Ql (U) Negative Negative [facility] Protein Test strip Ql (U)Ord ered By: Milton Tabor on 07-07-2023 Protein Ql (U) Negative Negative [facility] RBC Ql (U)Ordered By: Milton Tabor on 07-07-2023 Urine Occult Blood 10 /ul High Negative [facility] Urine RBC 0 SEEN /hpf 0-5 [facility] Squamous epithelial cells de tection in urine sediment by light microscopyOrdered By: Milton Tabor on 07-07-2023 Epithelial cells.squamous LM Ql (Urine sed) 0 SEEN /hpf 0-5 [facility] Trichomonas screening testOr dered By: Milton Tabor on 07-07-2023 Urine WBC 0-5 SEEN /hpf 0-5 [facility] Urine blood detectionOrdered By: Milton Tabor on 07-07-2023 RBC Ql (U) 10 /ul High Negative [facility] RBC Ql (U) 0 SEEN /hpf 0-5 [facility] Urine clarityOrdered By: Robert Tabor on 07-07-2023 Clarity (U) Clear Clear [facility] Urine color determinationOrd ered By: Milton Tabor on 07-07-2023 Color (U) Yellow Yellow [facility] Urine glucose detectionOrder ed By: Milton Tabor on 07-07-2023 Glucose Ql (U) Normal mg/dl Normal [facility] Urine leukocyte esterase det ection by dipstickOrdered By: Milton Tabor on 07-07-2023 Leukocyte esterase Test strip Ql (U) 100 /ul High Negative [facility] Urine pHOrdered By: Milton chiu on 07-07-2023 pH (U) 5.0 [pH] 5.0 - 8.0 [facility] Urine sediment bacteria coun t by microscopy (number/high power field)Ordered By: Milton Tabor on 07-07-2023 Bacteria LM.HPF (Urine sed) [#/Area] 0 /[HPF] None Seen [facility] Urine specific gravity measu rementOrdered By: Milton Tabor on 07-07-2023 Specific gravity (U) [Rel density] 1.015 1.002-1.030 [facility] Urobilinogen Auto test strip Ql (U)Ordered By: Milton Tabor on 07-07-2023 Urine Urobilinogen Normal mg/dl Normal [facility] Urobilinogen Ql (U) Normal mg/dl Normal [facility] Glucose Glucometer (BldC) [M ass/Vol]Ordered By: Josué Lara on 06-02-2023 Glucose [Mass/Vol] 101 mg/dL 74-106 [facility] Comment on above: MANAGEMENT OF PATIEN T CARE PER NURSING PROTOCOL Absolute lymphocyte countOrd ered By: Virgil Payton on 05-17-2023 Lymphocytes Auto (Unsp spec) [#/Vol] 2.40 10*3/uL 0.83-4.51 [facility] Basophil percentageOrdered B y: Virgil Payton on 05-17-2023 Basophils/100 WBC (Bld) 0.8 % 0-1 [facility] Chloride [Moles/Vol] 104 mmol/L 98-107 [facility] Cholesterol [Mass/Vol] 106 mg/dL <200 [facility] Comment on above: <200 mg/dL Desirable 200-240 mg/dL Borderline >240 mg/dL High Risk Eosinophils/100 WBC (Bld) 2.5 % 0-5 [facility] Glucose [Mass/Vol] 98 mg/dL 74-106 [facility] Neutrophils (Bld) [#/Vol] 6.4 10*3/uL 2.0-7.7 [facility] Neutrophils/100 WBC (Bld) 65.5 % 47-70 [facility] Potassium [Moles/Vol] 4.2 mmol/L 3.5-5.1 [facility] Sodium [Moles/Vol] 135 mmol/L 136-145 [facility] Triglyceride [Mass/Vol] 69 mg/dL <199 [facility] Comment on above: The drugs N-Acetylcy steine and Metamizole may falsely depress this assay.Serum Triglycerides Reference Interval Normal <150 mg/dL Borderline high 150 - 199 mg/dL High 200 - 499 mg/dL Very High > or = 500 mg/dL WBC (Bld) [#/Vol] 9.8 10*3/uL 4.4-11.0 [facility] Blood erythrocytes count (nu mber/volume)Ordered By: Virgil Payton on 05-17-2023 RBC (Bld) [#/Vol] 4.35 10*6/uL 4.6-6.2 [facility] Blood hemoglobin measurement (mass/volume)Ordered By: Virgil Payton on 05-17-2023 Hemoglobin (Bld) [Mass/Vol] 11.7 g/dL 13.0-16.5 [facility] Blood lymphocytes/100 leukoc ytesOrdered By: Virgil Payton on 05-17-2023 Lymphocytes/100 WBC (Bld) 24.5 % 19-41 [facility] Blood monocytes/100 leukocyt esOrdered By: Virgil Payton on 05-17-2023 Monocytes/100 WBC (Bld) 6.4 % 0-10 [facility] Blood platelet mean volumeOr dered By: Virgil Payton on 05-17-2023 Platelet mean volume (Bld) [Entitic vol] 9.5 fL 6.2-12.0 [facility] Determination of erythrocyte mean corpuscular volume (MCV)Ordered By: Virgil Payton on 05-17-2023 MCV (RBC) [Entitic vol] 88.3 fL 80-94 [facility] Hematocrit Auto (Bld) [Volum e fraction]Ordered By: Virgil Payton on 05-17-2023 Hematocrit (Bld) [Volume fraction] 38.4 % 40-54 [facility] Laboratory - Chemistry and C hemistry - challengeOrdered By: Virgil Payton on 05-17-2023 CO2 [Moles/Vol] 24.0 mmol/L 21.0-32.0 [facility] Urea nitrogen/Creatinine [Mass ratio] 14.3 mg/mg 10-20 [facility] Laboratory - Hematology and Cell countsOrdered By: Virgil Payton on 05-17-2023 Erythrocyte distribution width (RBC) [Entitic vol] 49.1 fL 35.1-43.9 [facility] Erythrocyte distribution width (RBC) [Ratio] 15.1 % 11.6-14.6 [facility] Immature granulocytes/100 WBC (Bld) 0.300 % 0.0-0.9 [facility] Comment on above: IG% - Immature Granu locytes (promyelocytes, myelocytes and metamyelocytes) > 1% indicates that a LEFT SHIFT is Present. MCH (RBC) [Entitic mass] 26.9 pg 27.0-32.0 [facility] Nucleated RBC/100 WBC (Bld) [Ratio] 0 % 0-5 [facility] MCHC Auto (RBC) [Mass/Vol]Or dered By: Virgil Payton on 05-17-2023 MCHC (RBC) [Mass/Vol] 30.5 g/dL 32-36 [facility] No Panel InformationOrdered By: Virgil Payton on 05-17-2023 Estimated GFR (MDRD) Amer 117 mL/min >60 [facility] Comment on above: GFR Calc Estimated GFR (MDRD) Non-Af Amer 97 mL/min >60 [facility] Comment on above: Non- GFR Calc Platelets bldOrdered By: Verito Payton on 05-17-2023 Platelets (Bld) [#/Vol] 291 10*3/uL 150-450 [facility] Serum or plasma calcium durga urement (mass/volume)Ordered By: Virgil Payton on 05-17-2023 Calcium [Mass/Vol] 9.3 mg/dL 8.5-10.1 [facility] Serum or plasma cholesterol in HDL measurement (mass/volume)Ordered By: Virgil Payton on 05-17-2023 Cholesterol in HDL [Mass/Vol] 44 mg/dL >40 [facility] Comment on above: The drugs N-Acetylcy steine and Metamizole may falsely depress this assay. Reference Range HDL <40 mg/dL Low HDL Cholesterol HDL >or= 60 mg/dL High HDL Cholesterol Serum or plasma cholesterol in VLDL measurement (mass/volume)Ordered By: Virgil Payton on 05-17-2023 Cholesterol in VLDL [Mass/Vol] 14 mg/dL 5-40 [facility] Serum or plasma creatinine m easurement (mass/volume)Ordered By: Virgil Payton on 05-17-2023 Creatinine [Mass/Vol] 0.84 mg/dL 0.70-1.30 [facility] Comment on above: The validity of the calculated GFR & GFRAA in patients over 70 years has not been determined. Clinical correlation is essential. Serum or plasma low density lipoprotein (LDL) cholesterol measurement (mass/volume)Ordered By: Virgil Payton on 05-17-2023 Cholesterol in LDL [Mass/Vol] 48 mg/dL 0-130 [facility] Serum or plasma urea nitroge n measurement (mass/volume)Ordered By: Virgil Payton on 05-17-2023 Urea nitrogen [Mass/Vol] 12 mg/dL 7-18 [facility] Thin prep Papanicolaou smear with manual screeningOrdered By: Virgil Payton on 05-17-2023 Thin prep Papanicolaou smear with manual screening 7 5-15 [facility] Whole blood hemoglobin A1c/t otal hemoglobin ratio (mass fraction)Ordered By: Virgil Payton on 05-17-2023 HbA1c (Bld) [Mass fraction] 5.8 % 3.8-5.6 [facility] Comment on above: Normal < 5.7 % Predi abetic 5.7 - 6.4 % Diabetic >or= 6.5 % Please note range changes. Basic metabolic 1998 panelon 04-07-2023 Anion gap [Moles/Vol] 7 mmol/L 3 - 13 mmol/L [facility] [place] Calcium [Mass/Vol] 8.7 mg/dL 8.4 - 10. 4 mg/dL [facility] Chloride [Moles/Vol] 100 mmol/L 98 - 10 7 mmol/L [facility] CO2 [Moles/Vol] 21 mmol/L Low 22 - 30 mmol/L [facility] Creatinine [Mass/Vol] 0.85 mg/dL 0.66 - 1.25 mg/dL [facility] GFR/1.73 sq M.predicted MDRD (S/P/Bld) [Vol rate/Area] - PINF [facility] Comment on above: Calculation based on the Chronic Kidney Disease Epidemiology Collaboration (CKD-EPI) equation refit without adjustment for race Glucose [Mass/Vol] 149 mg/dL High 70 - 100 mg/dL [facility] Interpretation and review of laboratory results Abnormal [facility] [place] Potassium [Moles/Vol] 4.5 mmol/L 3.5 - 5.1 mmol/L [facility] Sodium [Moles/Vol] 128 mmol/L Low 135 - 145 mmol/L [facility] Urea nitrogen [Mass/Vol] 17 mg/dL 9 - 20 mg/d L [facility] CBC panel Auto (Bld)Ordered By: Fatmata Weir on 04-07-2023 Erythrocyte distribution width (RBC) [Ratio] 16.1 % High 11.5 - 14.5 % [facility] Hematocrit (Bld) [Volume fraction] 33.4 % Low 40.0 - 52.0 % [facility] Hemoglobin (Bld) [Mass/Vol] 11.0 g/dL Low 13.0 - 18.0 g/dL [facility] Interpretation and review of laboratory results Abnormal [facility] MCH (RBC) [Entitic mass] 27.2 pg 26. 0 - 34.0 pg [facility] MCHC (RBC) [Mass/Vol] 33.0 % 32.0 - 36.0 % [facility] MCV (RBC) [Entitic vol] 82.4 fL 80.0 - 98.0 fL [facility] Platelet mean volume (Bld) [Entitic vol] 7.8 fL 7.4 - 12.4 fL [facility] Platelets (Bld) [#/Vol] 172 10*3/uL 140 - 440 10*3/uL [facility] RBC (Bld) [#/Vol] 4.05 10*6/uL Low 4.40 - 5.9 0 10*6/uL [facility] WBC (Bld) [#/Vol] 13.8 10*3/uL High 3.6 - 10.7 10*3/uL [facility] Laboratory - Chemistry and C hemistry - challengeon 04-07-2023 Glucose [Mass/Vol] 233 mg/dL High 70 - 100 mg/dL [facility] No Panel Informationon 04-07 Interpretation and review of laboratory results Abnormal [facility] Performed by: [facility], [address] [place] [address] CLIA ID: [id number] [facility] Laboratory - Chemistry and C hemistry - challengeon 04-06-2023 Glucose [Mass/Vol] 315 mg/dL High 70 - 100 mg/dL [facility] Glucose [Mass/Vol] 235 mg/dL High 70 - 100 mg/dL [facility] Glucose [Mass/Vol] 176 mg/dL High 70 - 100 mg/dL [facility] Glucose [Mass/Vol] 165 mg/dL High 70 - 100 mg/dL [facility] Glucose [Mass/Vol] 139 mg/dL High 70 - 100 mg/dL [facility] Glucose [Mass/Vol] 114 mg/dL High 70 - 100 mg/dL [facility] No Panel Informationon 04-06 Interpretation and review of laboratory results Abnormal [facility] Performed by: [facility] [employer] [facility], [address] [place] [address] CLIA ID: [id number] [facility] Interpretation and review of laboratory results Abnormal [facility] Performed by: [facility], [address] [place] [id number] CLIA ID: [id number] [facility] Interpretation and review of laboratory results Abnormal [facility] Performed by: [facility], [address] [place] [address] CLIA ID: [id number] [facility] Interpretation and review of laboratory results Abnormal [facility] Performed by: [facility], [address] [place] [address] CLIA ID: [id number] [facility] There is no interpretation needed for this exam. IMAGING Interpretation and review of laboratory results Abnormal [facility] Performed by: [facility], [address] [place] [id number] CLIA ID: [id number] [facility] Interpretation and review of laboratory results Abnormal [facility] Performed by: [facility], [address] [place] [address] CLIA ID: [id number] [facility] Urinalysis complete panel (U )Ordered By: Yulisa Pete on 04-06-2023 Bacteria LM.HPF (Urine sed) [#/Area] Negative Negative /HPF [facility] Bilirubin Ql (U) Negative Negative mg/dL [facility] Clarity (U) Slightly Cloudy Abnormal Clear [facility] alth Color (U) [facility] Comment on above: Pinkish Epithelial cells.squamous LM.HPF (Urine sed) [#/Area] Negative [facility] h Glucose Ql (U) Normal Normal (<70) mg/dL [facility] Hemoglobin Ql (U) >1.0 Abnormal Negative mg/dL [facility] Interpretation and review of laboratory results Abnormal [facility] Ketones (U) [Mass/Vol] Negative Negat giorgio mg/dL [facility] Leukocyte esterase Test strip Ql (U) 25 Abnormal Negative Colleen/uL [facility] Mucus LM.HPF (Urine sed) [#/Area] Few Negative /LPF [facility] Nitrite Ql (U) Negative Negative [facility] th pH (U) 5.0 [pH] 5.0 - 8.0 pH [facility] Protein (U) [Mass/Vol] 20 mg/dL Abnormal Negative [facility] RBC LM.HPF (Urine sed) [#/Area] /[HPF] Abnormal [facility] Specific gravity (U) [Rel density] 1.033 High 1.005 - 1.030 [facility] Urobilinogen (U) [Mass/Vol] Normal Normal (0-1) mg/dL [facility] WBC LM.HPF (Urine sed) [#/Area] 6-10 Abnormal [facility] XR Chest 2 Viewson 3 No acute process. Hyperinflation. There is a small right basal pulmonary nodule, measuring no greater than 4 mm. This was seen to represent calcified granuloma on the recent CT of the abdomen and pelvis. Report Dictated on Electronically Signed By: Karl Charles DO Electronically Signed Date/Time: 03/30/2023 4:42 PM EDT [facility] Patient Name: YAAKOV WELLS : 1955 Exam Date/Time: 03/30/2023 15:33 Procedure: XR CHEST 2 VIEWS Ordering Provider: GARRETT JOLLY Reason For Exam: pre-op testing CHEST, PA & LATERAL: INDICATION: Preop COMPARISON: No previous studies are available for comparison. PA and lateral views of the chest were obtained. The heart is normal in size. The mediastinal silhouette is normal. The lungs are hyperinflated.. A tiny right basal pulmonary nodule is present, measuring no greater than 4 mm. There is no pleural thickening. Arthritic changes of the spine and shoulders are present. [facility] Karl Charles DO - 03/30/2023 Patient Name: YAAKOV WELLS : 1955 Exam Date/Time: 03/30/2023 15:33 Procedure: XR CHEST 2 VIEWS Ordering Provider: GARRETT JOLLY Reason For Exam: pre-op testing CHEST, PA & LATERAL: INDICATION: Preop COMPARISON: No previous studies are available for comparison. PA and lateral views of the chest were obtained. The heart is normal in size. The mediastinal silhouette is normal. The lungs are hyperinflated.. A tiny right basal pulmonary nodule is present, measuring no greater than 4 mm. There is no pleural thickening. Arthritic changes of the spine and shoulders are present. IMPRESSION: No acute process. Hyperinflation. There is a small right basal pulmonary nodule, measuring no greater than 4 mm. This was seen to represent calcified granuloma on the recent CT of the abdomen and pelvis. Report Dictated on Electronically Signed By: Karl Charles DO Electronically Signed Date/Time: 03/30/2023 4:42 PM EDT [facility] [place] Radiology Study observation (narrative) [facility] alth XR Chest 2 ViewsOrdered By: Karl Charles on 03-30-2023 [facility] [place] Work Phone: Basophil percentageOrdered B y: Nikita Francis on 03-11-2023 Basophil percentage 10-25 SEEN /hpf 0-5 [facility] Bilirubin Test strip Ql (U)O rdered By: Nikita Francis on 03-11-2023 Bilirubin Ql (U) Negative Negative [facility] Culture, urineOrdered By: Keturah Francis on 03-11-2023 Bacteria identified Cx Nom (U) Raoultella planticola [facility] Ketones Test strip Ql (U)Ord ered By: Nikita Francis on 03-11-2023 Ketones Ql (U) Negative Negative [facility] Laboratory - Chemistry and C hemistry - challengeon 03-11-2023 Bilirubin Ql (U) Negative [facility] Glucose Ql (U) Negative [facility] Ketones Ql (U) Negative [facility] pH (U) 7.5 [pH] [facility] Specific gravity (U) [Rel density] 1.005 [facility] Urobilinogen (U) [Mass/Vol] 0.4591968 mg/dL [facility] Laboratory - Hematology and Cell countson 03-11-2023 Hemoglobin Ql (U) Hemolyzed [facility] Laboratory - Specimen inform ationon 03-11-2023 Clarity (U) Cloudy [facility] Color (U) Yellow [facility] Laboratory - Urinalysison Nitrite Ql (U) Positive [facility] Protein Ql (U) Trace [facility] Mucus LM Ql (Urine sed)Order ed By: Nikita Francis on 03-11-2023 Mucus Ql (Urine sed) 0 SEEN /hpf [facility] Nitrite Test strip Ql (U)Ord ered By: Nikita Francis on 03-11-2023 Nitrite Ql (U) Positive Negative [facility] No Panel Informationon 03-11 Urine Non-Hemolyzed Blood Small [facility] Protein Test strip Ql (U)Ord ered By: Nikita Francis on 03-11-2023 Protein Ql (U) Negative Negative [facility] Squamous epithelial cells de tection in urine sediment by light microscopyOrdered By: Nikita Francis on 03-11-2023 Epithelial cells.squamous LM Ql (Urine sed) 0-5 SEEN /hpf 0-5 [facility] Urine blood detectionOrdered By: Nikita Francis on 03-11-2023 RBC Ql (U) 25 /ul Negative [facility] RBC Ql (U) 0 SEEN /hpf 0-5 [facility] Urine clarityOrdered By: Donny Francis on 03-11-2023 Clarity (U) Sl. Cloudy Clear [facility] Urine color determinationOrd ered By: Nikita Francis on 03-11-2023 Color (U) Yellow Yellow [facility] Urine glucose detectionOrder ed By: Nikita Francis on 03-11-2023 Glucose Ql (U) Normal mg/dl Normal [facility] Urine leukocyte esterase det ection by dipstickOrdered By: Nikita Francis on 03-11-2023 Leukocyte esterase Test strip Ql (U) 500 /ul Negative [facility] Urine pHOrdered By: Nikita anand on 03-11-2023 pH (U) 7.0 [pH] 5.0 - 8.0 [facility] Urine sediment bacteria coun t by microscopy (number/high power field)Ordered By: Nikita Francis on 03-11-2023 Bacteria LM.HPF (Urine sed) [#/Area] 4 /[HPF] None Seen [facility] Urine specific gravity measu rementOrdered By: Nikita Francis on 03-11-2023 Specific gravity (U) [Rel density] 1.010 1.002-1.030 [facility] Urobilinogen Auto test strip Ql (U)Ordered By: Nikita Francis on 03-11-2023 Urobilinogen Ql (U) Normal mg/dl Normal [facility] CT Abdomen and Pelvis W opal quesadat Gail 02-26-2023 Fusiform unruptured infrarenal abdominal aortic aneurysm, measuring up to 7.0 cm. Duplication of the left renal artery. Severe narrowing of the more caudal nondominant left renal artery origin, with focal hypoenhancement of the lower pole of the left kidney. 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 Colonic diverticulosis. Duodenal lipoma. Noncalcified 4 mm right lower lobe pulmonary nodule. Recommend follow-up according to Fleischner criteria, as below. Probable cystic lesion in the right perineal subcutaneous tissues. Recommend correlation with physical exam and consider further evaluation with targeted ultrasound. CRITICAL TEST RESULT COMMUNICATION: A message was sent via [employer] to TIAN LARA on 02/26/2023 at 12:49 PM EDT. 2017 - UPDATED [employer] GUIDELINES FOR MANAGEMENT OF SMALL PULMONARY NODULES DETECTED ON CT Note: Recommendations do not apply for lung cancer screening, patients with immunosuppression or with known cancer. Dimensions are average of long and short axis rounded to the millimeter SOLITARY NODULE: LOW RISK PATIENT <6mm - No follow up 6-8mm - 6-12 months, then consider 18-24 months >8mm - PET/CT, Bx or followup in 3 months SOLITARY NODULE: HIGH RISK PATIENT <6mm - Optional 6-12 months (suspicious morphology or upper lobe) 6-8mm - 6-12 months, then 18-24 months >8mm - PET/CT, Bx or followup in 3 months MULTIPLE NODULES: LOW RISK PATIENT (Use most suspicious nodule to manage guidelines) All <6mm - No follow up Any >6mm - 3-6 months, then consider 18-24 months MULTIPLE NODULES: HIGH RISK PATIENT (Use most suspicious nodule to manage guidelines) All <6mm - No follow up Any >6mm - 3-6 months, then 18-24 months SUBSOLID NODULE: SINGLE GROUND GLASS OPACITY <6mm - No follow up 6mm or greater - 6-12 months, then every 2 years until 5 years SUBSOLID NODULE: PART SOLID <6mm - No follow up 6mm or greater - 3-6 months, then if solid component <6mm and unchanged every year until 5 years MULTIPLE SUBSOLID NODULES: All <6mm - 3-6 months, then if stable 24 and 48 months 6mm or greater - 3-6 months, subsequent management based upon most suspicious nodule Report Dictated on Electronically Signed By: Ellen Maldonado Electronically Signed Date/Time: 02/26/2023 12:50 PM [facility] [facility] Patient Name: YAAKOV WELLS : 1955 [facility]#: [id number] Exam Date/Time: 02/26/2023 10:48 Procedure: CT ABDOMEN PELVIS ANGIOGRAM W AND/OR WO IV CONTRAST Ordering Provider: LARA JOSEPH Reason For Exam: Aneurysm, renal or visceral CT ANGIOGRAPHY ABDOMEN AND PELVIS: CLINICAL INDICATION: Aneurysm, renal or visceral. Abdominal aortic aneurysm. Prostate cancer. 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 Multiplanar and 3D MIP reconstruction was performed concurrently with independent viewing software. Dose reduction was employed with automated exposure control. COMPARISON: None. FINDINGS: Inferior chest: Calcified right middle lobe granuloma. Noncalcified 4 mm right lower lobe pulmonary nodule (series 4 image 45). Aortic valve calcification. Vasculature: Fusiform infrarenal abdominal aortic aneurysm. This measures up to 6.9 cm x 7.0 cm. Aneurysm spans a length of 12.4 cm, extending to the level of the aortic bifurcation. Aneurysm begins 1.8 cm below the level of the right renal artery origin. Aneurysm is partially thrombosed. The enhancing aortic lumen measures up to 3.0 cm x 3.1 cm. Moderate atherosclerotic change of the abdominal aorta. Minimal narrowing of the right renal artery. Duplication of the left renal artery. Mild narrowing of the dominant more cephalad left renal artery. Severe stenosis of the origin of the nondominant more caudal left renal artery. Mild focal hypoenhancement of the lower pole of the left kidney. Mild narrowing of the celiac artery. Mild narrowing of the SMA. Occlusion of the PAN origin, with distal reconstitution. Moderate atherosclerotic change of the right common and external iliac arteries. Severe atherosclerotic change of the right internal iliac artery, with near occlusion. Moderate atherosclerotic change of the left common and external iliac arteries. Severe atherosclerotic change of the left internal iliac artery, with apparent partial occlusion. Moderate atherosclerotic change of the right common femoral artery and the proximal right superficial femoral artery. Moderate atherosclerotic change of the left common femoral artery and the proximal left superficial femoral artery. Liver: Normal size and contours. No focal lesion. Biliary tree: No biliary dilatation. No calcified gallstones. No pericholecystic fluid. Spleen: Normal. Adrenals: Normal. Pancreas: Normal. Kidneys: Symmetric contrast excretion without evidence of hydronephrosis. No focal renal lesion is identified. Free fluid: None. Retroperitoneal/mesen teric lymphadenopathy: None. Bowel: No dilatation is noted. There appears to be an elongated lipoma within the distal duodenum, spanning a length of 3.4 cm. Colonic diverticulosis. No evidence of acute diverticulitis. Normal appendix. Abdominal wall: Normal. Pelvic organs/viscera: Prostate is upper normal in size.. Pelvic lymphadenopathy: None. Osseous structures: Degenerative change of the spine. Mild bilateral hip joint DJD. Mild degenerative change of the pubic symphysis.. Other: There is a smoothly marginated lesion in the right perineum, measuring 4.9 x 1.5 x 2.0 cm. This has a Hounsfield unit density measuring 25. This likely represents a cyst. Small right hydrocele. [facility] Ellen Maldonado M D - 02/26/2023 [facility] 1955 [id number] Exam Date/Time: 02/26/2023 10:48 Procedure: CT ABDOMEN PELVIS ANGIOGRAM W AND/OR WO IV CONTRAST Ordering Provider: LARA JOSEPH Reason For Exam: Aneurysm, renal or visceral CT ANGIOGRAPHY ABDOMEN AND PELVIS: CLINICAL INDICATION: Aneurysm, renal or visceral. Abdominal aortic aneurysm. Prostate cancer. 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 Multiplanar and 3D MIP reconstruction was performed concurrently with independent viewing software. Dose reduction was employed with automated exposure control. COMPARISON: None. FINDINGS: Inferior chest: Calcified right middle lobe granuloma. Noncalcified 4 mm right lower lobe pulmonary nodule (series 4 image 45). Aortic valve calcification. Vasculature: Fusiform infrarenal abdominal aortic aneurysm. This measures up to 6.9 cm x 7.0 cm. Aneurysm spans a length of 12.4 cm, extending to the level of the aortic bifurcation. Aneurysm begins 1.8 cm below the level of the right renal artery origin. Aneurysm is partially thrombosed. The enhancing aortic lumen measures up to 3.0 cm x 3.1 cm. Moderate atherosclerotic change of the abdominal aorta. Minimal narrowing of the right renal artery. Duplication of the left renal artery. Mild narrowing of the dominant more cephalad left renal artery. Severe stenosis of the origin of the nondominant more caudal left renal artery. Mild focal hypoenhancement of the lower pole of the left kidney. Mild narrowing of the celiac artery. Mild narrowing of the SMA. Occlusion of the PAN origin, with distal reconstitution. Moderate atherosclerotic change of the right common and external iliac arteries. Severe atherosclerotic change of the right internal iliac artery, with near occlusion. Moderate atherosclerotic change of the left common and external iliac arteries. Severe atherosclerotic change of the left internal iliac artery, with apparent partial occlusion. Moderate atherosclerotic change of the right common femoral artery and the proximal right superficial femoral artery. Moderate atherosclerotic change of the left common femoral artery and the proximal left superficial femoral artery. Liver: Normal size and contours. No focal lesion. Biliary tree: No biliary dilatation. No calcified gallstones. No pericholecystic fluid. Spleen: Normal. Adrenals: Normal. Pancreas: Normal. Kidneys: Symmetric contrast excretion without evidence of hydronephrosis. No focal renal lesion is identified. Free fluid: None. Retroperitoneal/mesen teric lymphadenopathy: None. Bowel: No dilatation is noted. There appears to be an elongated lipoma within the distal duodenum, spanning a length of 3.4 cm. Colonic diverticulosis. No evidence of acute diverticulitis. Normal appendix. Abdominal wall: Normal. Pelvic organs/viscera: Prostate is upper normal in size.. Pelvic lymphadenopathy: None. Osseous structures: Degenerative change of the spine. Mild bilateral hip joint DJD. Mild degenerative change of the pubic symphysis.. Other: There is a smoothly marginated lesion in the right perineum, measuring 4.9 x 1.5 x 2.0 cm. This has a Hounsfield unit density measuring 25. This likely represents a cyst. Small right hydrocele. IMPRESSION: Fusiform unruptured infrarenal abdominal aortic aneurysm, measuring up to 7.0 cm. Duplication of the left renal artery. Severe narrowing of the more caudal nondominant left renal artery origin, with focal hypoenhancement of the lower pole of the left kidney. 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 Colonic diverticulosis. Duodenal lipoma. Noncalcified 4 mm right lower lobe pulmonary nodule. Recommend follow-up according to Fleischner criteria, as below. Probable cystic lesion in the right perineal subcutaneous tissues. Recommend correlation with physical exam and consider further evaluation with targeted ultrasound. CRITICAL TEST RESULT COMMUNICATION: A message was sent via [employer] to TIAN LARA on 02/26/2023 at 12:49 PM EDT. 2017 - UPDATED [employer] GUID[employer]INES FOR MANAGEMENT OF SMALL PULMONARY NODULES DETECTED ON CT Note: Recommendations do not apply for lung cancer screening, patients with immunosuppression or with known cancer. Dimensions are average of long and short axis rounded to the millimeter SOLITARY NODULE: LOW RISK PATIENT <6mm - No follow up 6-8mm - 6-12 months, then consider 18-24 months >8mm - PET/CT, Bx or followup in 3 months SOLITARY NODULE: HIGH RISK PATIENT <6mm - Optional 6-12 months (suspicious morphology or upper lo (more content not included)... [employer] [facility] Study observation (narrative) [facility] CT Abdomen and Pelvis W cont rast IVOrdered By: Ellen Maldonado on 02-26-2023 [employer] Work Phone: Creatinine [Mass/Vol]on GFR/1.73 sq M.predicted MDRD (S/P/Bld) [Vol rate/Area] - PINF [facility] Comment on above: Calculation based on the Chronic Kidney Disease Epidemiology Collaboration (CKD-EPI) equation refit without adjustment for race Interpretation and review of laboratory results Normal [facility] [place] Creatinine, Serumon 02-25-20 23 Creatinine [Mass/Vol] 0.81 mg/dL 0.66 - 1.25 mg/dL [employer] [place] Basophil percentageOrdered B y: Dr. Lara on 02-01-2023 Basophil percentage < 0.9 mg/dL 0.70-1.30 [facility] No Panel InformationOrdered By: Dr. Lara on 02-01-2023 Bedside Estimated GFR (eGFR) > 60.0000 mL/min >60 [facility] Basophil percentageOrdered B y: Dr. Payton on 12-07-2022 Chloride [Moles/Vol] 101 mmol/L 98-107 [facility] Cholesterol [Mass/Vol] 95 mg/dL <200 [facility] Comment on above: <200 mg/dL Desirable 200-240 mg/dL Borderline >240 mg/dL High Risk Glucose [Mass/Vol] 105 mg/dL 74-106 [facility] Comment on above: Fasting Glucose resu lt from 100 to 125 mg/dL suggests IMPAIRED HOMEOSTASIS per A.D.A. criteria. Potassium [Moles/Vol] 4.8 mmol/L 3.5-5.1 [facility] Sodium [Moles/Vol] 132 mmol/L 136-145 [facility] Triglyceride [Mass/Vol] 97 mg/dL <199 [facility] Comment on above: The drugs N-Acetylcy steine and Metamizole may falsely depress this assay.Serum Triglycerides Reference Interval Normal <150 mg/dL Borderline high 150 - 199 mg/dL High 200 - 499 mg/dL Very High > or = 500 mg/dL Laboratory - Chemistry and C hemistry - challengeOrdered By: Dr. Payton on 12-07-2022 CO2 [Moles/Vol] 26.0 mmol/L 21.0-32.0 [facility] Urea nitrogen/Creatinine [Mass ratio] 13.4 mg/mg 10-20 [facility] No Panel InformationOrdered By: Dr. Payton on 12-07-2022 Estimated GFR (MDRD) Amer 109 mL/min >60 [facility] Comment on above: GFR Calc Estimated GFR (MDRD) Non-Af Amer 90 mL/min >60 [facility] Comment on above: Non- GFR Calc Prostate Specific Antigen Total 31.00 ng/mL 0.0-4.0 [facility] Comment on above: This test was perfor med using the TPSA assay method [facility] the[facility]. Values obtained with differentassay methods cannot be used interchangably.When changing PSA assays in the course of monitoring apatient, additional sequential testing should be carriedout to confirm baseline values. Serum or plasma calcium durga urement (mass/volume)Ordered By: Dr. Payton on 12-07-2022 Calcium [Mass/Vol] 9.6 mg/dL 8.5-10.1 [facility] Serum or plasma cholesterol in HDL measurement (mass/volume)Ordered By: Dr. Payton on 12-07-2022 Cholesterol in HDL [Mass/Vol] 31 mg/dL >40 [facility] Comment on above: The drugs N-Acetylcy steine and Metamizole may falsely depress this assay. Reference Range HDL <40 mg/dL Low HDL Cholesterol HDL >or= 60 mg/dL High HDL Cholesterol Serum or plasma cholesterol in VLDL measurement (mass/volume)Ordered By: Dr. Payton on 12-07-2022 Cholesterol in VLDL [Mass/Vol] 19 mg/dL 5-40 [facility] Serum or plasma creatinine m easurement (mass/volume)Ordered By: Dr. Payton on 12-07-2022 Creatinine [Mass/Vol] 0.89 mg/dL 0.70-1.30 [facility] Comment on above: The validity of the calculated GFR & GFRAA in patients over 70 years has not been determined. Clinical correlation is essential. Serum or plasma low density lipoprotein (LDL) cholesterol measurement (mass/volume)Ordered By: Dr. Payton on 12-07-2022 Cholesterol in LDL [Mass/Vol] 45 mg/dL 0-130 [facility] Serum or plasma urea nitroge n measurement (mass/volume)Ordered By: Dr. Payton on 12-07-2022 Urea nitrogen [Mass/Vol] 12 mg/dL 7-18 [facility] Thin prep Papanicolaou smear with manual screeningOrdered By: Dr. Payton on 12-07-2022 Thin prep Papanicolaou smear with manual screening 5 5-15 [facility] Basophil percentageon 2021 Chloride [Moles/Vol] 104 mmol/L 98-107 [facility] Work Phone: Cholesterol [Mass/Vol] 119 mg/dL <200 [facility] Work Phone: Comment on above: <200 mg/dL Desirable 200-240 mg/dL Borderline >240 mg/dL High Risk Glucose [Mass/Vol] 169 mg/dL 74-106 [facility] Work Phone: Comment on above: Fasting Glucose resu lt greater than or equal to 126 mg/dL suggests DIABETES MELLITUS per A.D.A. criteria. Potassium [Moles/Vol] 4.4 mmol/L 3.5-5.1 [facility] Work Phone: Sodium [Moles/Vol] 137 mmol/L 136-145 [facility] Work Phone: Triglyceride [Mass/Vol] 141 mg/dL <199 [facility] Work Phone: Comment on above: The drugs N-Acetylcy steine and Metamizole may falsely depress this assay.Serum Triglycerides Reference Interval Normal <150 mg/dL Borderline high 150 - 199 mg/dL High 200 - 499 mg/dL Very High > or = 500 mg/dL Laboratory - Chemistry and C hemistry - challengeon 04-16-2022 CO2 [Moles/Vol] 26.0 mmol/L 21.0-32.0 [facility] Work Phone: Urea nitrogen/Creatinine [Mass ratio] 17.6 mg/mg 10-20 [facility] Work Phone: No Panel Informationon 04-16 Estimated GFR (MDRD) Amer 107 mL/min >60 [facility] Work Phone: Comment on above: GFR Calc Estimated GFR (MDRD) Non-Af Amer 88 mL/min >60 [facility] Work Phone: Comment on above: Non- GFR Calc Serum or plasma calcium durga urement (mass/volume)on 04-16-2022 Calcium [Mass/Vol] 9.8 mg/dL 8.5-10.1 [facility] Work Phone: Serum or plasma cholesterol in HDL measurement (mass/volume)on 04-16-2022 Cholesterol in HDL [Mass/Vol] 34 mg/dL >40 [facility] Work Phone: Comment on above: The drugs N-Acetylcy steine and Metamizole may falsely depress this assay. Reference Range HDL <40 mg/dL Low HDL Cholesterol HDL >or= 60 mg/dL High HDL Cholesterol Serum or plasma cholesterol in VLDL measurement (mass/volume)on 04-16-2022 Cholesterol in VLDL [Mass/Vol] 28 mg/dL 5-40 [facility] Work Phone: Serum or plasma creatinine m easurement (mass/volume)on 04-16-2022 Creatinine [Mass/Vol] 0.91 mg/dL 0.70-1.30 [facility] Work Phone: Comment on above: The validity of the calculated GFR & GFRAA in patients over 70 years has not been determined. Clinical correlation is essential. Serum or plasma low density lipoprotein (LDL) cholesterol measurement (mass/volume)on 04-16-2022 Cholesterol in LDL [Mass/Vol] 57 mg/dL 0-130 [facility] Work Phone: Serum or plasma urea nitroge n measurement (mass/volume)on 04-16-2022 Urea nitrogen [Mass/Vol] 16 mg/dL 7-18 [facility] Work Phone: Thin prep Papanicolaou smear with manual screeningon 04-16-2022 Thin prep Papanicolaou smear with manual screening 7 5-15 [facility] Work Phone: Vital Signs Date Time Vital Sign Value Performing Clinician Facility 02-26-2025 08:29-0400 Body height 175.[address] Virgil Payton MD Work Phone: [facility] 02-26-2025 08:29-0400 Body mass index (BMI) [Ratio] 26 kg/m2 Dr. Virgil Payton MD Work Phone: [facility] 02-26-2025 08:29-0400 Body temperature 96.8 [degF] Dr. Virgil Payton MD Work Phone: [facility] 02-26-2025 08:29-0400 Body weight 80.[address] Virgil Payton MD Work Phone: [facility] 02-26-2025 08:29-0400 Diastolic blood pressure 75 mm[Hg] Dr. Virgil Payton MD Work Phone: [facility] 02-26-2025 08:29-0400 Heart rate 69 /min Dr. Virgil Payton MD Work Phone: [facility] 02-26-2025 08:29-0400 Respiratory rate 18 /min Dr. Virgil Payton MD Work Phone: [facility] 02-26-2025 08:29-0400 SaO2% (BldA) [Mass fraction] 97 % Dr. Virgil Payton MD Work Phone: [facility] 02-26-2025 08:29-0400 Systolic blood pressure 175 mm[Hg] Dr. Virgil Payton MD Work Phone: [facility] 09-05-2024 14:15-0500 Body height 175.[address] Virgil Payton MD Work Phone: [facility] 09-05-2024 14:15-0500 Body mass index (BMI) [Ratio] 25.5 kg/m2 Dr. Virgil Payton MD Work Phone: [facility] 09-05-2024 14:15-0500 Body weight 78.[address] Virgil Payton MD Work Phone: [facility] 09-05-2024 14:15-0500 Diastolic blood pressure 75 mm[Hg] Dr. Virgil Payton MD Work Phone: [facility] 09-05-2024 14:15-0500 Respiratory rate 16 /min Dr. Virgil Payton MD Work Phone: [facility] 09-05-2024 14:15-0500 Systolic blood pressure 138 mm[Hg] Dr. Virgil Payton MD Work Phone: [facility] 08-28-2024 08:34-0500 Body mass index (BMI) [Ratio] 24 kg/m2 Dr. Virgil Payton MD Work Phone: [facility] 08-28-2024 08:34-0500 Body temperature 98.9 [degF] Dr. Virgil Payton MD Work Phone: 2(366)862-754887 [address] 08-28-2024 08:34-0500 Body weight 75.[address] Virgil Payton MD Work Phone: 3(935)293-277792 [place] [address] 08-28-2024 08:34-0500 Diastolic blood pressure 88 mm[Hg] Dr. Virgil Payton MD Work Phone: 8(311)034-661687 [address] 08-28-2024 08:34-0500 Heart rate 64 /min Dr. Virgil Payton MD Work Phone: 2(027)266-610492 [place] [address] 08-28-2024 08:34-0500 Respiratory rate 16 /min Dr. Virgil Payton MD Work Phone: 8(571)908-015292 [place] [address] 08-28-2024 08:34-0500 SaO2% (BldA) [Mass fraction] 96 % Dr. Virgil Payton MD Work Phone: 4(002)334-507687 [address] 08-28-2024 08:34-0500 Systolic blood pressure 173 mm[Hg] Dr. Virgil Payton MD Work Phone: 2(748)134-665392 [place] [address] 09-06-2023 08:57-0500 Body height 177.[address] Virgil Payton Work Phone: 8(306)703-587992 [place] [address] 09-06-2023 08:57-0500 Body mass index (BMI) [Ratio] 23 kg/m2 Dr. Virgil Payton Work Phone: 7(181)448-494755 [place] [address] 09-06-2023 08:57-0500 Body temperature 96.4 [degF] Dr. Virgil Payton Work Phone: 9(928)215-262692 [place] [address] 09-06-2023 08:57-0500 Body weight 72.[address] Virgil Payton Work Phone: 4(733)[phone] [place] [address] 09-06-2023 08:57-0500 Diastolic blood pressure 80 mm[Hg] Dr. Virgil Payton Work Phone: 9(882)[phone] [address] 09-06-2023 08:57-0500 Heart rate 65 /min Dr. Virgil Payton Work Phone: [facility] 09-06-2023 08:57-0500 Respiratory rate 16 /min Dr. Virgil Payton Work Phone: [facility] 09-06-2023 08:57-0500 SaO2% (BldA) [Mass fraction] 96 % Dr. Virgil Payton Work Phone: [facility] 09-06-2023 08:57-0500 Systolic blood pressure 163 mm[Hg] Dr. Virgil Payton Work Phone: [facility] 07-28-2023 09:53-0500 Body height 177.[address] Virgil Payton Work Phone: [facility] 07-28-2023 09:53-0500 Body mass index (BMI) [Ratio] 21.9 kg/m2 Dr. Virgil Payton Work Phone: [facility] 07-28-2023 09:53-0500 Body temperature 97.4 [degF] Dr. Virgil Payton Work Phone: [facility] 07-28-2023 09:53-0500 Body weight 69.[address] Virgil Payton Work Phone: [facility] [facility] 07-28-2023 09:53-0500 Diastolic blood pressure 78 mm[Hg] Dr. Virgil Payton Work Phone: [facility] 07-28-2023 09:53-0500 Heart rate 71 /min Dr. Virgil Payton Work Phone: [facility] 07-28-2023 09:53-0500 Respiratory rate 18 /min Dr. Virgil Payton Work Phone: [facility] 07-28-2023 09:53-0500 SaO2% (BldA) [Mass fraction] 98 % Dr. Virgil Payton Work Phone: [facility] 07-28-2023 09:53-0500 Systolic blood pressure 161 mm[Hg] Dr. Virgil Payton Work Phone: [facility] 07-21-2023 09:48-0500 Body mass index (BMI) [Ratio] 22.1 kg/m2 Dr. Virgil Payton Work Phone: [facility] 07-21-2023 09:48-0500 Body temperature 97.9 [degF] Dr. Virgil Payton Work Phone: [facility] 07-21-2023 09:48-0500 Body weight 69.[address] Virgil Payton Work Phone: [facility] 07-21-2023 09:48-0500 Diastolic blood pressure 70 mm[Hg] Dr. Virgil Payton Work Phone: [facility] 07-21-2023 09:48-0500 Heart rate 77 /min Dr. Virgil Payton Work Phone: [facility] 07-21-2023 09:48-0500 Respiratory rate 18 /min Dr. Virgil Payton Work Phone: [facility] 07-21-2023 09:48-0500 SaO2% (BldA) [Mass fraction] 97 % Dr. Virgil Payton Work Phone: [facility] 07-21-2023 09:48-0500 Systolic blood pressure 152 mm[Hg] Dr. Virgil Payton Work Phone: [facility] 07-14-2023 10:02-0500 Body mass index (BMI) [Ratio] 22.8 kg/m2 Dr. Virgil Payton Work Phone: [facility] 07-14-2023 10:02-0500 Body temperature 96.7 [degF] Dr. Virgil Payton Work Phone: [facility] 07-14-2023 10:02-0500 Body weight 72.[address] Virgil Payton Work Phone: [facility] 07-14-2023 10:02-0500 Diastolic blood pressure 79 mm[Hg] Dr. Virgil Payton Work Phone: [facility] 07-14-2023 10:02-0500 Heart rate 105 /min Dr. Virgil Payton Work Phone: [facility] 07-14-2023 10:02-0500 Respiratory rate 18 /min Dr. Virgil Payton Work Phone: [facility] 07-14-2023 10:02-0500 SaO2% (BldA) [Mass fraction] 97 % Dr. Virgil Payton Work Phone: [facility] 07-14-2023 10:02-0500 Systolic blood pressure 146 mm[Hg] Dr. Virgil Payton Work Phone: [facility] 07-07-2023 10:02-0500 Body mass index (BMI) [Ratio] 23.1 kg/m2 Dr. Virgil Payton Work Phone: [facility] 07-07-2023 10:02-0500 Body temperature 97.7 [degF] Dr. Virgil Payton Work Phone: [facility] 07-07-2023 10:02-0500 Body weight 73.[address] Virgil Payton Work Phone: [facility] 07-07-2023 10:02-0500 Diastolic blood pressure 77 mm[Hg] Dr. Virgil Payton Work Phone: [facility] 07-07-2023 10:02-0500 Heart rate 69 /min Dr. Virgil Payton Work Phone: [facility] 07-07-2023 10:02-0500 Respiratory rate 16 /min Dr. Virgil Payton Work Phone: [facility] 07-07-2023 10:02-0500 SaO2% (BldA) [Mass fraction] 98 % Dr. Virgil Payton Work Phone: [facility] 07-07-2023 10:02-0500 Systolic blood pressure 166 mm[Hg] Dr. Virgil Payton Work Phone: [facility] 06-30-2023 09:58-0500 Body mass index (BMI) [Ratio] 23.2 kg/m2 Dr. Virgil Payton Work Phone: [facility] 06-30-2023 09:58-0500 Body temperature 97.4 [degF] Dr. Virgil Payton Work Phone: [facility] 06-30-2023 09:58-0500 Body weight 73.[address] Virgil Payton Work Phone: [facility] 06-30-2023 09:58-0500 Diastolic blood pressure 80 mm[Hg] Dr. Virgil Payton Work Phone: [facility] 06-30-2023 09:58-0500 Heart rate 63 /min Dr. Virgil Payton Work Phone: [facility] 06-30-2023 09:58-0500 Respiratory rate 18 /min Dr. Virgil Payton Work Phone: [facility] 06-30-2023 09:58-0500 SaO2% (BldA) [Mass fraction] 98 % Dr. Virgil Payton Work Phone: [facility] 06-30-2023 09:58-0500 Systolic blood pressure 179 mm[Hg] Dr. Virgil Payton Work Phone: [facility] 06-24-2023 09:57-0400 Body mass index (BMI) [Ratio] 23.3 kg/m2 Dr. Virgil Payton Work Phone: [facility] 06-24-2023 09:57-0400 Body temperature 97.5 [degF] Dr. Virgil Payton Work Phone: [facility] 06-24-2023 09:57-0400 Body weight 73.[address] Virgil Payton Work Phone: [facility] 06-24-2023 09:57-0400 Diastolic blood pressure 80 mm[Hg] Dr. Virgil Payton Work Phone: [facility] 06-24-2023 09:57-0400 Heart rate 73 /min Dr. Virgil Payton Work Phone: [facility] 06-24-2023 09:57-0400 Respiratory rate 18 /min Dr. Virgil Payton Work Phone: [facility] 06-24-2023 09:57-0400 SaO2% (BldA) [Mass fraction] 97 % Dr. Virgil Payton Work Phone: 5(556)079-597355 [place] [address] 06-24-2023 09:57-0400 Systolic blood pressure 165 mm[Hg] Dr. Virgil Payton Work Phone: 6(468)350-358987 [address] 06-02-2023 08:26-0400 Body temperature 97.7 [degF] Dr. Virgil Payton Work Phone: 2(282)015-508492 [place] [address] 06-02-2023 08:26-0400 Diastolic blood pressure 70 mm[Hg] Dr. Virgil Payton Work Phone: 1(056)864-704492 [place] [address] 06-02-2023 08:26-0400 Heart rate 73 /min Dr. Virgil Payton Work Phone: 9(533)958-662487 [address] 06-02-2023 08:26-0400 Respiratory rate 18 /min Dr. Virgil Payton Work Phone: 7(750)835-444292 [place] [address] 06-02-2023 08:26-0400 SaO2% (BldA) [Mass fraction] 93 % Dr. Virgil Payton Work Phone: 1(319)741-658887 [address] 06-02-2023 08:26-0400 Systolic blood pressure 109 mm[Hg] Dr. Virgil Payton Work Phone: 8(770)210-377987 [address] 06-02-2023 06:26-0400 Body height 177.[address] Virgil Payton Work Phone: 8(631)247-281292 [place] [address] 06-02-2023 06:26-0400 Body mass index (BMI) [Ratio] 22.7 kg/m2 Dr. Virgil Payton Work Phone: 8(323)659-886055 [place] [address] 06-02-2023 06:26-0400 Body weight [address] Virgil Payton Work Phone: [facility] 04-30-2023 08:31-0400 Body mass index (BMI) [Ratio] 23.1 kg/m2 Dr. Virgil Payton Work Phone: [facility] 04-30-2023 08:31-0400 Body temperature 97.8 [degF] Dr. Virgil Payton Work Phone: [facility] 04-30-2023 08:31-0400 Body weight 73.[address] Virgil Payton Work Phone: [facility] 04-30-2023 08:31-0400 Diastolic blood pressure 82 mm[Hg] Dr. Virgil Payton Work Phone: [facility] 04-30-2023 08:31-0400 Heart rate 61 /min Dr. Virgil Payton Work Phone: [facility] 04-30-2023 08:31-0400 Respiratory rate 18 /min Dr. Virgil Payton Work Phone: [facility] 04-30-2023 08:31-0400 SaO2% (BldA) [Mass fraction] 98 % Dr. Virgil Payton Work Phone: [facility] 04-30-2023 08:31-0400 Systolic blood pressure 182 mm[Hg] Dr. Virgil Payton Work Phone: [facility] 04-21-2023 15:20-0400 Body height 180.3 cm Tian Lara MD Work Phone: [facility] [place] 04-21-2023 15:20-0400 Body mass index (BMI) [Ratio] 22.73 kg/m2 Tian Lara MD Work Phone: [facility] 04-21-2023 15:20-0400 Body weight 73.94 kg Tian Lara MD Work Phone: [facility] 04-21-2023 15:20-0400 Diastolic blood pressure 60 mm[Hg] Tian Lara MD Work Phone: [facility] 08-30-2023 15:20-0400 Respiratory rate 18 /min Tian Lara MD Work Phone: [facility] 04-21-2023 15:20-0400 Systolic blood pressure 124 mm[Hg] Tian Lara MD Work Phone: [facility] 04-07-2023 08:30-0400 Body temperature 98.71 [degF] Tian Lara MD Work Phone: [facility] 04-07-2023 08:30-0400 Diastolic blood pressure 74 mm[Hg] Tian Lara MD Work Phone: [facility] 04-07-2023 08:30-0400 Heart rate 67 /min Tian Lara MD Work Phone: [facility] 04-07-2023 08:30-0400 Respiratory rate 16 /min Tian Lara MD Work Phone: [facility] 04-07-2023 08:30-0400 SaO2% (BldA) [Mass fraction] 96 % Tian Lara MD Work Phone: [facility] 04-07-2023 08:30-0400 Systolic blood pressure 126 mm[Hg] Tian Lara MD Work Phone: [facility] 03-11-2023 09:10-0400 Body height 177.[address] Virgil Payton Work Phone: [facility] 03-11-2023 09:10-0400 Body mass index (BMI) [Ratio] 23.4 kg/m2 Dr. Virgil Payton Work Phone: [facility] 03-11-2023 09:10-0400 Body temperature 98.6 [degF] Dr. Virgil Payton Work Phone: [facility] 03-11-2023 09:10-0400 Body weight 74.[address] Virgil Payton Work Phone: [facility] 03-11-2023 09:10-0400 Diastolic blood pressure 74 mm[Hg] Dr. Virgil Payton Work Phone: [facility] 03-11-2023 09:10-0400 Heart rate 82 /min Dr. Virgil Payton Work Phone: [facility] 03-11-2023 09:10-0400 Respiratory rate 16 /min Dr. Virgil Payton Work Phone: [facility] 03-11-2023 09:10-0400 SaO2% (BldA) [Mass fraction] 94 % Dr. Virgil Payton Work Phone: [facility] 03-11-2023 09:10-0400 Systolic blood pressure 122 mm[Hg] Dr. Virgil Payton Work Phone: [facility] 02-24-2023 14:31-0400 Body height 180.3 cm iTan Lara MD Work Phone: [facility] 02-24-2023 14:31-0400 Body mass index (BMI) [Ratio] 23.57 kg/m2 Tian Lara MD Work Phone: [facility] 02-24-2023 14:31-0400 Body weight 76.66 kg Tian Lara MD Work Phone: [facility] 02-24-2023 14:31-0400 Diastolic blood pressure 76 mm[Hg] Tian Lara MD Work Phone: [facility] 02-24-2023 14:31-0400 Respiratory rate 18 /min Tian Lara MD Work Phone: [facility] 02-24-2023 14:31-0400 Systolic blood pressure 128 mm[Hg] Tian Lara MD Work Phone: [facility] 02-10-2023 15:41-0400 Body temperature 98.7 [degF] Dr. Virgil Payton Work Phone: [facility] 02-10-2023 15:41-0400 Body weight 75.[address] Virgil Payton Work Phone: [facility] 02-10-2023 15:41-0400 Diastolic blood pressure 77 mm[Hg] Dr. Virgil Payton Work Phone: [facility] 02-10-2023 15:41-0400 Heart rate 79 /min Dr. Virgil Payton Work Phone: [facility] 02-10-2023 15:41-0400 Respiratory rate 16 /min Dr. Virgil Payton Work Phone: [facility] 02-10-2023 15:41-0400 SaO2% (BldA) [Mass fraction] 96 % Dr. Virgil Payton Work Phone: [facility] 02-10-2023 15:41-0400 Systolic blood pressure 144 mm[Hg] Dr. Virgil Payton Work Phone: [facility] Encounters Encounter Date Encounter Type Care Provider Facility Start: 05-28-2025 Non-patient / Non-visit Dr. Dorian Montes MD -[facility] Start: 05-28-2025 End: 05-28-2025 ambulatory Virgil Payton Facility:[facility] Start: 05-28-2025 End: 05-28-[address] Virgil Payton MD -Cardiovascular Services Work Phone: Start: 05-28-2025 End: 05-28-2025 ambulatory Virgil Payton Facility:[facility] Start: 05-14-2025 End: 05-14-[address] Virgil Payton MD Work Phone: -[facility] Start: 05-14-2025 End: 05-14-[address] Virgil Payton MD -[facility] Start: 05-14-2025 End: 05-14-2025 ambulatory Virgil Payton Facility:[facility] Start: 02-26-[address] Milton Bentley on [facility] Start: 02-26-2025 End: 02-26-[address] Milton Tabor DO [facility] Work Phone: Start: 02-26-2025 End: 02-26-[address] Virgil Payton MD Work Phone: [facility] Start: 12-04-2024 End: 12-04-[address] Virgil Payton MD Work Phone: [facility] Work Phone: Start: 12-04-2024 End: 12-04-[address] Josué Lara MD -Laboratory Work Phone: Start: 12-04-2024 End: 12-04-2024 ambulatory Jsoué Lara Facility:[facility] Start: 11-13-2024 End: 11-13-[address] Virgil Payton MD Work Phone: [facility] Work Phone: Start: 11-13-2024 End: 11-13-[address] [place] Start: 11-13-2024 End: 11-13-2024 ambulatory Virgil Payton Facility:[facility] Start: 09-29-2024 ambulatory Nghia Valdivia [facility]ity:[facility] Start: 09-28-2024 End: 09-28-2024 Telephone encounter Tian Lara MD Work Phone: [facility] Scheduling Comment on above: Other (2nd attempt t o schedule) Start: 09-05-2024 End: 09-05-[address] Nghia Valdivia MD -[facility] Work Phone: Start: 09-05-2024 End: 09-05-2024 ambulatory Nghia Valdivia Facility:[facility] Start: 08-28-[address] Milton Bentley on [facility] Start: 08-28-2024 End: 08-28-[address] Milton Tabor [facility] Work Phone: Start: 08-28-2024 End: 08-28-2024 ambulatory Milton Tabor Facility:[facility] Start: 08-04-2024 End: 08-04-[address] Dorian Montes MD -[facility] Work Phone: Start: 08-04-2024 End: 08-04-2024 ambulatory Dorian Sealevel Facility:[facility] Start: 07-13-2024 End: 07-13-2024 ambulatory Dorian Sealevel Facility:[facility] Start: 07-13-2024 End: 07-13-2024 ambulatory Dorian Virgen Facility:[facility] Start: 07-10-2024 ambulatory Dorian Virgen Facility:[facility] Start: 07-10-2024 End: 07-10-2024 ambulatory Virgil Payton Facility:[facility] Start: 12-13-2023 Non-patient / Non-visit Dr. Virgli Payton Work Phone: [facility] Start: 12-13-2023 End: 12-13-[address] Virgil Payton Work Phone: [facility] Work Phone: Start: 12-13-2023 End: 12-13-[address] Virgil Payton Work Phone: [facility], [facility] Work Phone: Start: 09-06-2023 End: 09-06-[address] Virgil Payton Work Phone: [facility] Work Phone: Start: 08-18-2023 End: 08-18-[address] Virgil Payton Work Phone: [facility] Work Phone: Start: 08-18-2023 End: 08-18-[address] Virgil Payton Work Phone: [facility] Start: 07-29-2023 Non-patient / Non-visit Dr. Virgil Payton Work Phone: [facility] Work Phone: Start: 07-29-[address] Virgil Payton Work Phone: [facility]-Radiation Oncology Start: 07-28-2023 End: 07-28-[address] Virgil Payton Work Phone: [facility] Work Phone: Start: 07-21-2023 End: 07-21-[address] Virgil Payton Work Phone: [facility] Work Phone: Start: 07-14-2023 End: 07-14-[address] Vrigil Payton Work Phone: [facility] Work Phone: Start: 07-07-2023 End: 07-07-[address] Virgil Payton Work Phone: [facility] Work Phone: Start: 06-30-2023 End: 06-30-[address] Virgil Payton Work Phone: [facility] Work Phone: Start: 06-24-2023 End: 06-24-[address] Virgil Payton Work Phone: [facility] Work Phone: Start: 06-18-2023 Non-patient / Non-visit Dr. Virgil Payton Work Phone: [facility] Start: 06-17-2023 Non-patient / Non-visit Dr. Virgil Payton Work Phone: [facility] Start: 06-09-2023 Non-patient / Non-visit Dr. Virgil Payton Work Phone: [facility] Start: 06-09-[address] [facility] Start: 06-09-2023 End: 06-09-[address] Virgil Payton Work Phone: [facility] Work Phone: Start: 06-09-2023 End: 06-09-[address] Virgil Payton Work Phone: [facility] Work Phone: Start: 06-02-2023 End: 06-02-2023 Admission to same day surgery center Dr. Virgil Payton Work Phone: [facility]-S[facility] Day Care Start: 05-17-2023 End: 05-17-[address] Virgil Payton Work Phone: [facility] Start: 04-30-2023 End: 04-30-[address] 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 Virgil Payton Work Phone: [facility] Work Phone: Start: 03-11-2023 End: 03-11-[address] Virgil Payton Work Phone: [facility]-Laboratory, Specimen Work Phone: Start: 03-11-2023 End: 03-11-[address] 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 Virgil Payton Work Phone: [facility] Work Phone: Start: 02-18-2023 End: 02-18-[address] Virgil Payton Work Phone: [facility]-Cat Scan, [facility] Work Phone: Start: 02-10-2023 End: 02-10-[address] Virgil Payton Work Phone: [facility] V[facility] Work Phone: Start: 02-01-2023 End: 02-01-[address] [facility] Work Phone: Start: 02-01-2023 End: 02-01-[address] [facility]-Cat Scan, [facility] Start: 01-27-2023 End: 01-27-[address] [facility]-Nuclear Medicine, [facility] Start: 01-12-2023 End: 01-12-[address] [facility]-Laboratory, Specimen Start: 12-07-2022 End: 12-07-[address] [facility] Work Phone: Start: 12-07-2022 End: 12-07-[address] [facility], [facility] Start: 04-16-2022 End: 04-16-[address] [facility] Work Phone: Start: 04-16-2022 End: 04-16-[address] [facility], [facility] Procedures Date Procedure Procedure Detail Performing Clinician Start: 02-26-2025 Assay of prostate sp ecific antigen total Dr. Virgil Payton MD Work Phone: Comment on above: This test was perfor med using the [employer] tPSA method. Measured values of a patient sample can vary depending on the testing procedure used. PSA values determined on patient samples by different testing procedures cannot be used interchangeably. If there is a change in PSA assays while monitoring therapy, sequential testing should be performed to confirm baseline values. Start: 02-26-2025 Prostate specific an tigen measurement Dr. Virgil Payton MD Work Phone: Comment on above: This test was perfor med using the [employer] tPSA method. Measured values of a patient sample can vary depending on the testing procedure used. PSA values determined on patient samples by different testing procedures cannot be used interchangeably. If there is a change in PSA assays while monitoring therapy, sequential testing should be performed to confirm baseline values. Start: 12-04-2024 Assay of prostate sp ecific antigen total Dr. Virgil Payton MD Work Phone: Comment on above: This test was perfor med using the [employer] tPSA method. Measured values of a patient sample can vary depending on the testing procedure used. PSA values determined on patient samples by different testing procedures cannot be used interchangeably. If there is a change in PSA assays while monitoring therapy, sequential testing should be performed to confirm baseline values. Start: 08-28-[address] Virgil Payton MD Work Phone: Start: 08-28-2024 Measurement of renal function Dr. Virgil Payton MD Work Phone: Comment on above: GFR Calc Start: 08-04-2024 Computed tomography of abdomen and pelvis with contrast Dr. Virgil Payton MD Work Phone: Start: 06-09-2023 MRI of pelvis with contrast Dr. Virgil Payton Work Phone: Start: 04-07-2023 Glucose quantitative blood xcpt reagent strip Tian Lara MD Work Phone: Start: 04-07-2023 Basic metabolic pane l calcium total Joaquin Harvey MD Work Phone: Start: 04-06-2023 Glucose quantitative blood xcpt reagent strip Tian Lara MD Work Phone: Start: 04-06-2023 Glucose quantitative blood xcpt reagent strip Tian Lara MD Work Phone: Start: 04-06-2023 Glucose quantitative blood xcpt reagent strip Tian Lara MD Work Phone: Start: 04-06-2023 Urnls dip stick/tabl et reagent auto microscopy Dominique Galan MD Work Phone: Start: 04-06-2023 Glucose quantitative blood xcpt reagent strip Tian Lara MD Work Phone: Start: 04-06-2023 FL GUIDANCE OR USE O NLY - NON-RESULTABLE Tian Lara MD Work Phone: Start: 04-06-2023 Glucose quantitative blood xcpt reagent strip Tian Lara MD Work Phone: Start: 04-06-2023 End: 04-06-2023 Viscer and infrarenal abdom aorta 3 prosthesis Tian Lara MD Work Phone: Start: 04-06-2023 Glucose quantitative blood xcpt reagent strip Tian Lara MD Work Phone: Start: 03-30-2023 Radiologic exam ches t 2 views Jolly So CELL LEAD - HABITAT BIOLOGIST Work Phone: Start: 03-11-[address] Virgil Payton Work Phone: Start: 02-26-2023 Ct angio abd&plvis c ntrst mtrl w/wo cntrst img Tian Lara MD Work Phone: Start: 02-18-2023 Computed tomography angiography of abdominal and/or pelvic blood vessel Dr. Virgil Payton Work Phone: Start: 02-01-2023 Computed tomography of abdomen and pelvis with intravenous contrast Start: 01-27-2023 Radionuclide whole b lisa bone study Plan of Treatment Date Care Activity Detail Author Start: 02-26-2025 [facility] Start: 08-23-2024 Medicare Advantage Annual Wellness Visit Medicare Advantage Annual Wellness Visit [facility] Start: 04-23-2024 COVID-19 Vaccine ( season) COVID-19 Vaccine () [facility] Start: 04-23-2024 Influenza vaccination Influenza Vacc ine (#1) [facility] Start: 04-07-2024 Diabetes: Estimated Glomerular Filtration Rate for Kidney [facility] Diabetes: Estimated Glomerular Filtration Rate for Kidney Health [facility] Start: 03-30-2024 Hemoglobin A1c measurement Diabetes: Hemoglobin A1C [facility] Start: 06-02-2023 Anes integ extremiti es ant trunk & perineum nos ANESTH SKIN EXT/PER/ATRUNK [facility] Start: 06-02-2023 Plmt interstitial de v radiat tx prostate 1/mult PLACE RT DEVICE/MARKER PROS [facility] Start: 06-02-2023 Patient discharge [facility] Start: 06-02-[address] [facility] Start: 06-02-2023 Medication education [facility] Start: 06-02-[address] [facility] Start: 06-02-2023 [facility] Start: 04-23-2023 Influenza vaccination Influenza Vacc ine (#1) [facility] Start: 04-21-2023 End: 04-21-2023 Patient encounter procedure 04/21/2023 3:15 PM EDT Office Visit [facility] [address] [place] [address] Tian Lara MD [address] [place], [place] [id number] [facility] Start: 04-16-2023 Pneumococcal Vaccine : 50+ Years (2 of 2 - PCV) Pneumococcal Vaccine: 50+ Years (2 of 2 - PCV) [facility] Start: 04-16-2023 Pneumococcal Vaccine : 65+ Years (2 - PCV) Pneumococcal Vaccine: 65+ Years (2 - PCV) [facility] Start: 04-06-2023 End: 04-06-2023 Admission to same day surgery center 04/06/2023 7:30 AM EDT - 04/06/2023 11:30 AM EDT Surgery [facility] OR [address] [place] [phone] Tian Lara MD [address] [place] [phone] FENESTRATED STENT GRAFT [17033 (CPT )] [facility] Comment on above: FENESTRATED STENT GR AFT [81178 (CPT )] Start: 04-06-2023 End: 04-06-2023 Anesthesia consultation 04/06/2023 7:30 AM EDT Anesthesia Event [facility] [address] [place] [phone] Jolly Garrett, CELL LEAD - HABITAT BIOLOGIST [address] [place] [address] [facility] Start: 04-06-2023 End: 04-06-2023 Opn fem art expos dlvr evasc prosth uni OPEN FEMORAL ARTERY EXPOSURE FOR DELIVERY OF ENDOVASCULAR PROSTHESIS 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) 04/06/2023 7:30 AM EDT [facility] Operating [facility] Start: 04-06-2023 Subsequent hospital visit by physician 04/06/2023 7:30 AM EDT Hospital Encounter [facility] [address] [place] [address] Tian Lara MD [address] [place] [phone] [facility] Start: 04-06-2023 End: 04-06-2023 Viscer and infrarenal abdom aorta 3 prosthesis ENDOVASCULAR REPAIR AORTA WITH FENESTRATED ENDOGRAFT INCLUDING THREE VISCERAL ARTERY ENDOPROSTHESES 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) 04/06/2023 7:30 AM EDT [facility] Start: 02-24-2023 End: 02-25-2024 CT Abdomen and Pelvis W contrast IV CTA abdomen pelvis angiogram w and/or wo IV contrast Imaging STAT 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) Expected: 02/24/2023, Expires: 02/25/2024 [facility] Work Phone: Comment on above: Expected: 02/24/2023 , Expires: 02/25/2024 Start: 11-28-2022 DTaP/Tdap/Td Vaccine s (2 - Td or Tdap) DTaP/Tdap/Td Vaccines (2 - Td or Tdap) [facility] Start: 2013 RSV Immunization for Adults (1 - Risk 60-74 years 1-dose series) RSV Immunization for Adults (1 - Risk 60-74 years 1-dose series) [facility] Start: 2003 Screening for malign ant neoplasm of lung Lung Cancer Screening [facility] Start: 2003 Zoster Vaccines (1 o f 2) Zoster Vaccines (1 of 2) [facility] Start: 1971 Diabetes: Urine Albumin-Creatinine Ratio for Kidney Health Diabetes: Urine Albumin-Creatinine Ratio for Kidney Health [facility] Start: 1971 Hepatitis C screening Hepatitis C Sc reening [facility] Start: 1965 Depression Screening Depression Scre ening [facility] Start: 1963 Diabetic foot examination Diabetes: Foot Exam [facility] Start: 1963 Glaucoma screening Diabetes: R etinopathy Screening [facility] Start: 1963 Preventive dental service Diabetes: Dental Exam [facility] Start: 03-17-1956 COVID-19 Vaccine (#1) COVID-19 Vacci ne (#1) [facility] Start: 1953 Hemoglobin A1c measurement Diabetes: Hemoglobin A1C [facility] Start: 1953 Lipid panel Lipid Panel [facility] Start: 1953 Screening for malign ant neoplasm of colon [facility] Colonoscopy [facility] Creatinine and Glomerular filtration rate.predicted panel - Serum, Plasma or Blood [facility] Patient referral [facility] Work Phone: Prostate specific antigen measurement [facility] Prostate specific antigen measurement [facility] Prostate specific antigen measurement [facility] Immunizations Immunization Date Immunization Notes Care Provider Fa collins 05-13-2020 influenza virus vacc ine, unspecified formulation Tian Lara MD Work Phone: [facility] Payers Date Payer Category Payer Self-pay [id number] 2023 Private Health Insurance [id number] 2022 Medicare HUMANA MEDICARE ADVANTAGE HU[employer]NA MEDICARE [id number] 2022-Present [address] [place] [address] Medicare HMO [id number] 2022 Medicare O HUMANA MEDICARE [id number] Unknown [id number] Unknown [id number] .[id number] Unknown [id number] .[id number] .2.462 Unknown [id number] [id number] .2.462 Unknown [id number] 2..1.406583.3.579 .2.462 Unknown [id number] 2.16.840.1.962930.3.579 .2.462 Unknown [id number] 2.16.840.1.714947.3.579 .2.462 Unknown [id number] 2.16.840.1.872830.3.579 .2.462 Unknown [id number] 2.16.840.1.015763.3.579 .2.462 Unknown [id number] 2.16.840.1.305817.3.579 .2.462 Unknown [id number] 2.16.840.1.694199.3.579 .2.462 Unknown [id number] 2.16.840.1.384162.3.579 .2.462 Unknown [id number] 2.16.840.1.429099.3.579 .2.462 Unknown [id number] 2.16840.1.273484.3.579 .2.462 Unknown [id number] 2.16840.1.203531.3.579 .2.462 Unknown [id number] [id number] .2.462 Social History Date Type Detail Facility Start: 11-29-2013 End: 05-26-2023 Tobacco smoking status IDIS Unknown if ever smoked [facility] Start: 07-14-2021 Heavy [facility] Start: 07-14-2021 None [facility] Start: 07-14-2021 Cigarettes [facility] Start: 1955 Sex Assigned At Male [facility] Start: 02-24-2023 End: 03-30-2023 Tobacco smoking status NHIS Smokes tobacco daily [facility] History of tobacco use Cigarette Smoker [facility] Start: 02-24-2023 End: 04-21-2023 Cigarettes smoked current (pack per day) - Reported 2 [facility] Start: 02-24-2023 End: 03-30-2023 Tobacco use and exposure Smokeless tobacco non-user [facility] Start: 02-24-2023 Alcohol intake Ex-drinker (finding) [facility] Start: 02-24-2023 End: 04-21-[address] [facility] Start: 02-24-2023 [facility] Start: 1955 Sex Assigned At Not on file [facility] Start: 02-14-2023 End: 04-21-2023 Exposure to SARS-CoV-2 (event) Not sure [facility] Start: 03-30-2023 End: 04-21-2023 Alcohol intake Current drinker of alcohol (finding) [facility] Start: 03-30-2023 Alcohol Comment 3 beers a month [facility] Start: 03-27-2023 End: 04-06-2023 Exposure to SARS-CoV-2 (event) Yes [facility] Start: 02-11-2023 End: 12-07-2024 Sex Male (finding) [facility] Start: 07-13-2024 Tobacco smoking stat NHIS Current Heavy tobacco smoker [facility] Medical Equipment Procedure Code Equipment Code Equipment Original Text Equipment Identifier Dates Stent Viabahn Bx 6x29mm 135cm - [id number] - [id number] Start: 04-06-2023 [facility] Fenestrat ed Aaa Endovascular Graft Distal Body [id number] Start: 04-06-2023 Graft Aaa Iliac [facility] - [id number] Start: 04-06-2023 GORE VIABAHN BAL LOON EXPANDABLE ENDOPROSTHESIS FDA Start: 04-06-2023 GORE VIABAHN BAL LOON EXPANDABLE ENDOPROSTHESIS FDA Start: 04-06-2023 ZENITH ENDOVASCU LAR GRAFT FDA Start: 04-06-2023 MARKERS, FIDUCIAL GOLD FDA St art: 06-02-2023 Radiotherapy pro tection spacer [id number] FDA Start: 06-02-2023 GORE VIABAHN BAL LOON EXPANDABLE ENDOPROSTHESIS FDA Start: 04-06-2023 GORE VIABAHN BAL LOON EXPANDABLE ENDOPROSTHESIS FDA Start: 04-06-2023 ZENITH ENDOVASCU LAR GRAFT FDA Start: 04-06-2023 MARKERS, FIDUCIAL GOLD FDA St art: 06-02-2023 GORE VIABAHN BAL LOON EXPANDABLE ENDOPROSTHESIS FDA Start: 04-06-2023 GORE VIABAHN BAL LOON EXPANDABLE ENDOPROSTHESIS FDA Start: 04-06-2023 ZENITH ENDOVASCU LAR GRAFT FDA Start: 04-06-2023 MARKERS, FIDUCIAL GOLD FDA St art: 06-02-2023 Stent Viabahn Bx 6x29mm 135cm - [id number] - [id number] Start: 04-06-2023 [facility] Fenestrat ed Aaa Endovascular Graft Proximal Body [id number] Start: 04-06-2023 Graft Aaa Iliac / [facility] - [id number] Start: 04-06-2023 GORE VIABAHN BAL LOON EXPANDABLE ENDOPROSTHESIS FDA Start: 04-06-2023 GORE VIABAHN BAL LOON EXPANDABLE ENDOPROSTHESIS FDA Start: 04-06-2023 ZENITH ENDOVASCU LAR GRAFT FDA Start: 04-06-2023 MARKERS, FIDUCIAL GOLD FDA St art: 06-02-2023 GORE VIABAHN BAL LOON EXPANDABLE ENDOPROSTHESIS FDA Start: 04-06-2023 GORE VIABAHN BAL LOON EXPANDABLE ENDOPROSTHESIS FDA Start: 04-06-2023 ZENITH ENDOVASCU LAR GRAFT FDA Start: 04-06-2023 MARKERS, FIDUCIAL GOLD FDA St art: 06-02-2023 GORE VIABAHN BAL LOON EXPANDABLE ENDOPROSTHESIS FDA Start: 04-06-2023 GORE VIABAHN BAL LOON EXPANDABLE ENDOPROSTHESIS FDA Start: 04-06-2023 ZENITH ENDOVASCU LAR GRAFT FDA Start: 04-06-2023 MARKERS, FIDUCIAL GOLD FDA St art: 06-02-2023 GORE VIABAHN BAL LOON EXPANDABLE ENDOPROSTHESIS FDA Start: 04-06-2023 GORE VIABAHN BAL LOON EXPANDABLE ENDOPROSTHESIS FDA Start: 04-06-2023 ZENITH ENDOVASCU LAR GRAFT FDA Start: 04-06-2023 MARKERS, FIDUCIAL GOLD FDA St art: 06-02-2023 GORE VIABAHN BAL LOON EXPANDABLE ENDOPROSTHESIS FDA Start: 04-06-2023 GORE VIABAHN BAL LOON EXPANDABLE ENDOPROSTHESIS FDA Start: 04-06-2023 ZENITH ENDOVASCU LAR GRAFT FDA Start: 04-06-2023 MARKERS, FIDUCIAL GOLD FDA St art: 06-02-2023 Goals Date Patient Goal Desired Activity /State Mental Status Date Assessment Result Facility 06-02-2023 Cognitive function Level Of Consciousness Drowsy [facility] Work Phone: 06-02-2023 Cognitive function Voice/Name [facility] Work Phone: Clinical Notes 02-24-2023 to 02-26-2025 Note Date & Type Note Facility 02-26-2025 Evaluation note Diagnosis Onset Date Resolution Primary malignant neoplasm of prostate with high risk of recurrence due to acute February 26, 2025 7:53am [facility] Work Phone: 1(217) 776-529907-07-2025 [facility] [address] [place] [address] OFFICE VISIT Date of Service: 02/26/25826 MR#: [id number] Acct: [id number] Name: YAAKOV WELLS Margarita Rep #: [id number] : 1955 From: Milton chin DO Age/Sex: 69/M [place] [facility] Status: Signed Intake Vital Signs 08/28/24 08:34 02/26/25 08:29 Height 5 ft 10 in 5 ft 9 in Weight: 176 lb 9 oz BMI 26.0 BP 175/75 H Blood Pressure Location Rt brachial Position Sitting Respiration 18 Pulse 69 Pulse Source Monitor Temp 96.8 F L Temperature Source Temporal Artery Pulse Oximetry (%) 97 Oxygen Delivery Method room air Intake Visit Reasons: 6 MONTH F/U PROSTATE, PSA PRIOR Is patient in pain?: No Allergies No Known Allergies Allergy (Verified 02/26/25 08:32) Medications ?Medication ?Instructions ?Recorded ?Confirmed ?Type clopidogrel 75 mg tablet 75 mg PO DAILY 02/09/23 07/0 03/16 History gabapentin 300 mg capsule 300 mg PO TID 02/09/2302/26 History latanoprost 0.005 % eye drops, 1 drp ophthalmic (eye) DAILY 02/09/23 02/26/25 History emulsion lisinopril 40 mg tablet 40 mg PO DAILY 02/09/2303/16 History simvastatin 40 mg tablet 40 mg PO QHS 02/09/23 History tamsulosin 0.4 mg capsule 0.4 mg PO QHS 02/09/2302/26 History calcium 200 mg (as 1 tab PO DAILY 03/11/2303/16 History citrate)-vitamin D3 3.125 mcg (125 unit) tablet metformin 1,000 mg tablet 1,000 mg PO DAILY 02/21/24 0 02/26/25 History alpha lipoic acid 600 mg capsule 600 mg PO QDAY 02/26/25 History amlodipine 5 mg tablet 5 mg PO QDAY 08/28/24 History Have you fallen in the past year?: No PFSH PFSH Medical History Wears hearing aid Blurry vision Wears glasses Cancer Alcohol use Diabetes Bladder disease Neck pain TIA (transient ischemic attack) Difficulty chewing Constipation CPAP (continuous positive airway pressure) dependence Shortness of breath on exertion Smoker Chronic cough History of pain when walking History of edema AAA (abdominal aortic aneurysm) Abnormal prostate biopsy (~12/2022) Hearing loss Phlebitis and thrombophlebitis of deep vein of lower extremity Cerebrovascular disease History of nocturia Hypertension Dysuria Bronchitis Prostatic hyperplasia, benign localized Incomplete bladder emptying Heart disease Prostate cancer Home Medications ?Medication ?Instructions ?Recorded ?Last Taken ?Type clopidogrel 75 mg tablet 75 mg PO DAILY 02/09/2301/12 History gabapentin 300 mg capsule 300 mg PO TID 02/09/2306/02 History latanoprost 0.005 % eye drops, 1 drp ophthalmic (eye) DAILY 02/09/23 06/02/23 History emulsion lisinopril 40 mg tablet 40 mg PO DAILY 02/09/2305/23 04:45 History simvastatin 40 mg tablet 40 mg PO QHS 02/09/23 Unknow n History tamsulosin 0.4 mg capsule 0.4 mg PO QHS 02/09/23 Unkno wn History calcium 200 mg (as 1 tab PO DAILY 03/11/2305/23 History citrate)-vitamin D3 3.125 mcg (125 unit) tablet metformin 1,000 mg tablet 1,000 mg PO DAILY 02/21/24 U nknown History alpha lipoic acid 600 mg capsule 600 mg PO QDAY Unknown History amlodipine 5 mg tablet 5 mg PO QDAY 08/28/24 Unknow n History Allergy/AdvReac Type Severity Reaction Status Date / Time No Known Allergies Allergy Verified 02/26/25 08:32 Family History Mother Cancer Arthritis Hypertension Father Diabetes Hypertension Surgical History S/P AAA (abdominal aortic aneurysm) repair Hx of cardiac catheterization Social History Smoking Status: Heavy Smoker (>10/day) alcohol intake: current Diagnosis: Yaakov Wells is a 69-year-old old male diagnosed with 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 From 06/21/2023 ? 07/29/2023 he received definitive radiation therapy with ADT. History of Present Illness: 01/12/2023: Patient completed TRUS guided prostate biopsy.? Pathology demonstrated Giorgi 3+4 adenocarcinoma involving less than 5% of 1/1 core in the right prostate apex, less than 5% of 1/2 cores in the right prostate base, about 90% of 1/1 core in the left prostate apex, greater than 95% of 2/2 cores involving the left prostate mid, and greater than 95% of 2/2 cores in the left prostate base.?3 biopsies did not contain malignancy. 01/27/2023: Bone scan was performed.? This demonstrated no evidence for osseous disease. 02/01/2023: CT abdomen/pelvis with contrast was performed.? This demonstrated an elongated infrarenal aortic aneurysm with a greatest diameter of 6.8 cm as well as moderate heterogeneous enlargement of the prostate gland. From 06/21/2023 ? 07/29/2023: received definitive radiation therapy consisting hj3125 cGy delivered to the prostate and seminal vesicles and 5040 cGy delivered to the at risk pelvic lymph nodes all in28 fractions. He was treated using a VMAT technique with 10 MV photons. Radiation Treatment History: 1) From 06/21/2023 ? 07/29/2023: received definitive radiation therapy consistingof 7000 cGy delivered to the prostate and seminal vesicles and 5040 cGy delivered to the at risk pelvic lymph nodes allin 28 fractions. He was treated using a VMAT technique with 10 MV photons. Interval History: Patient returns for follow-up approximately 19 months after completing definitive radiation therapy. Since his last visit 6 months ago he does report doing well overall. He does report intermittency almost always, weak stream more than half the time, urgency about half the time, frequency less thanhalf the time, incomplete emptying and straining less than 1 time in 5. He has nocturia about 1 pernight. He does take Flomax once per day, when he stopped this his urinary symptoms to get worse. Hedenies having current dysuria and denies hematuria. He denies leakage or incontinence. He reports intermittent constipation at baseline, he does take MiraLAX about every day. Stool is soft but no diarrhea. He denies rectal pain or bleeding. He denies cough, shortnessof breath, chest pain, bone pain. Energy level has slowly recovered but he still has some fatigue. Denies hot flashes. Just completed his last ADT in thelast couple months. He is able to complete ADLs without much difficulty and he denies having other problems or concerns at this time. Review of Systems: A 12-point review of systems was completed and was negative except for what is noted in the HPI/Interval History and by the nurse. Physical Exam: Weight: 176 lbs 9 oz ECO KARNOFSKY SCORE: 70% CONSTITUTIONAL: Well-developed, well-nourished, and in no apparent distress. NECK: Supple, no thyromegaly, and non-tender. Trachea midline. No cervical or supraclavicular adenopathy noted. CARDIAC: Regular rate and rhythm. Normal S1, S2. No murmurs, rubs, or gallops. PULMONARY/CHEST: Lungs are clear to auscultation and percussion bilaterally. No wheezes, rhonchi, or crackles noted. No increased work of breathing. EXTREMITIES: Full range of motion in all four extremities. No evidence of edema. ISMAEL: Deferred PSYCHIATRIC: Appropriate mood and affect for the clinical situation. 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 From 06/21/2023 ? 07/29/2023 he received definitive radiation therapy with ADT. Plan: Patient presents for follow-up approximately 19 months after completing definitive radiation therapy with ADT for high risk prostate cancer. He is doing well and appears to have recovered from treatment associated toxicities. He continues to have urinary symptoms which is fairly consistent with hisbaseline pretreatment symptoms and is taking Flomax once per day. PSA continuesto fall and is now 0.07. He does not have any signs or symptoms concerning for development of disease progression or metastatic disease. Recommend that he have a PSA drawn every 3-6 months to closely follow. ADT completed. Elevated blood pressure is being evaluated and managed by his PCP, he is asymptomatic today. I will plan to see him in about 6 months. He was instructed to call with any further questions or concerns in the interim. Thank you for allowing me to participate in the management and care of your patient. If I may answer any questions in the interim, please do not hesitate tocontact me at any time. Milton Tabor DO, MS [employer], Department of Radiation Oncology [facility] Coding Level of Care Code Off vis,est,level 3 Diagnoses Primary malignant neoplasm of prostate with high risk of recurrence due to Giorgi score of 8 to 10and PSA greater than 20 C61 02/26/25 0851 DO> Date _ Milton Tabor DO Cosigner Signature: Date (if applicable) CC: ~ [facility]02-06-2025 NoteWe have been unable to reach your patient to schedule their testing. Test Name: vascular EVAR evaluation 1st Attempt: [facility] 09-26-24 2nd Attempt: sw pt's daughter- would like to have test performed at different [facility]02-06-2025 Telephone encounter Note* Telephone Encounter - Briseida Farley - 09/28/2024 12:14 PM EST We have been unable to reach your patient to schedule their testing. Test Name: vascular EVAR evaluation 1st Attempt: [facility] 09-26-24 2nd Attempt: sw pt's daughter- would like to have test [facility] at different facility [id number] Miscellaneous Notes* Telephone Encounter - Briseida Farley - 09/28/2024 12:14 PM EST We have been unable to reach your patient to schedule their testing. Test Name: vascular EVAR evaluation 1st Attempt: [facility] 09-26-24 2nd Attempt: sw pt's daughter- would like to have test performed at different facility documented in this [facility]01-06-2025 Evaluation note* Diagnosis Onset Date Resolution Status Admit Date Primary malignant neoplasm o f prostate with high risk of recurrence due to acute August 28, 025 7:56am Screen for colon cancer acute J anuary 2024 2:05pm [facility] Work Phone: 1(423) 914-796108-30-2023 History of Present illness Narrative* Tian Lara MD - 04/21/2023 3:15 PM EDT 04/21/2023 Yaakov Wells 1955 Chief Complaint Patient presents with Post-op 1st PO fenestrated stent graft for AAA 04/06/2023 Patient returns for post operative evaluation status post endovascular repair of abdominal aortic aneurysm. The patient denies any unexpected problems since hospital discharge. Past Surgical History: Procedure Laterality Date ABDOMINAL AORTIC ANEURYSM REPAIR 04/06/2023 Jane - fenestrated stent graft repair Physical Exam: The incisions are healing without evidence of infection. Heart rhythm is regular.Hisincisions are clean and dry Right Left Brachial Radial Femoral Popliteal Dorsalis Pedis Posterior Tibial (3=normal, 2=diminished, 1=barely palpable, 4=widened) Assessment: Post-operative endovascular repair abdominal aortic aneurysm. 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 Plan: ok to resume normal activity Ok to start radiation for porstate cancer US in 6 months Follow up if symptoms worsen or fail to improve. . documented in this [facility]08-16-2023 Nurse Note* Michelle Harris RN - 04/07/2023 12:22 PM EDT Pt ambulated hallway without difficulty. Pt also voided without difficulty. Discharged to home. Instructions given to pt and his daughter. [id number]* Michelle Harris RN - 04/07/2023 12:22 PM EDT Pt ambulated hallway without difficulty. Pt also voided without difficulty. Discharged to home. Instructions given to pt and his daughter. Prescription filled by [facility] to beds pharmacy. * Bina Ocampo RN - 04/06/2023 4:36 PM EDT Art line discontinued per protocol. Pt tolerated well. Occlusive drsg applied. Site agapito. documented in this [facility]08-16-2023 Hospital course Narrative* Desi Knapp MD - 04/07/2023 10:15 AM EDT Vascular Surgery Discharge Summary [facility] SUMMARY: The patient is a 67 y.o. male who was admitted to the hospital on 04/06/2023 6:01 AM for treatment of juxtarenal AAA. On the day of admission, a bilateral open femora artery exposure with fenestrated stent graft was performed. The patient's hospital course was uncomplicated and consisted of physicaltherapy, incision observation, and a return to normal oral intake. The patient was discharged on POD1 tolerating a diet, moving bowels, and urinating without difficulty. The incisions were clean and intact. The patient was discharged to home in satisfactory condition with instructions to call the office for a follow up appointment. 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) Active Problems: AAA (abdominal aortic aneurysm) without rupture (HCC) Procedure(s) (LRB): FENESTRATED STENT GRAFT (N/A) OPEN FEMORAL ARTERY EXPOSURE FOR DELIVERY OF ENDOVASCULAR PROSTHESIS (Bilateral) Discharge Medications: Current Facility-Administered Medications: acetaminophen (Tylenol) tablet 650 mg, 650 mg, Oral, 4 times per day, Joaquin Harvey MD, 650 mg at 04/07/23 0601 aspirin chewable tablet 81 mg, 81 mg, Oral, Daily, Joaquin Harvey MD, 81 mg at 04/07/23 0835 atorvastatin (Lipitor) tablet 40 mg, 40 mg, Oral, Daily, Joaquin Harvey MD, 40 mg at 04/07/23 08 clopidogrel (Plavix) tablet 75 mg, 75 mg, Oral, Daily, Joaquin Harvey MD, 75 mg at 04/07/23 08 dextrose 5 % infusion, 100 mL/hr, IntraVENous, PRN, Joaquin Harvey MD dextrose 50 % solution 12.5 g, 12.5 g, IntraVENous, PRN, Joaquin Harvey MD enoxaparin (Lovenox) syringe 40 mg, 40 mg, SubCUTAneous, Daily, Joaquin Harvey MD, 40 mg at 04/06/232015 gabapentin (Neurontin) capsule 300 mg, 300 mg, Oral, TID, Joaquin Harvey MD, 300 mg at 04/07/23834 glucagon (human recombinant) injection 1 mg, 1 mg, IntraMUSCular, PRN, Joaquin Harvey MD glucose oral gel 15 g, 15 g, Oral, PRN, Joaquin Harvey MD Insulin Lispro (Humalog) injection 0-12 Units, 0-12 Units, SubCUTAneous, TID WC, 4 Units at 04/06/23 1756 AND Insulin Lispro (Humalog) injection 0-12 Units, 0-12 Units, SubCUTAneous, Nightly, Joaquin Harvey MD, 8 Units at 04/06/232015 Labetalol HCl (Normodyne, Trandate) injection 10 mg, 10 mg, IntraVENous, q2h PRN, Joaquin Harvey MD lisinopril tablet 40 mg, 40 mg, Oral, Daily, Joaquin Harvey MD morphine injection 2 mg, 2 mg, IntraVENous, q2h PRN OR morphine injection 4 mg, 4 mg, IntraVENous, q2h PRN, Joaquin Harvey MD ondansetron ODT (Zofran-ODT) disintegrating tablet 4 mg, 4 mg, Oral, q8h PRN OR ondansetron (Zofran) injection 4 mg, 4 mg, IntraVENous, q6h PRN, Joaquin Harvey MD oxyCODONE (Roxicodone) immediate release tablet 5 mg, 5 mg, Oral, q4h PRN, Joaquin Harvey MD sodium chloride 0.9 % infusion, 5-250 mL/hr, IntraVENous, PRN, Joaquin Harvey MD sodium chloride 0.9% (NS) flush 10 mL, 10 mL, IntraVENous, 2 times per day, Joaquin Harvey MD, 10 mL at 04/06/23 2100 sodium chloride 0.9% (NS) flush 10 mL, 10 mL, IntraVENous, PRN, Joaquin Harvey MD tamsulosin (Flomax) 24 hr capsule 0.4 mg, 0.4 mg, Oral, Daily, Joaquin Harvey MD, 0.4 mg at 04/07/23 0835 trospium (Sanctura) tablet 20 mg, 20 mg, Oral, BID AC, Joaquin Harvey MD, 20 mg at 04/07/23 0601 Is the patient discharged on ASA? Yes Is the patient discharged on an Antiplatelet other than ASA? Yes Is the patient discharged on an anticoagulant? No Is the patient discharged on a statin? Yes Desi Knapp MD General Surgery PGY-3 Pager # [phone] documented in this [facility]08-16-2023 Hospital Discharge instructions* Discharge Instructions* Desi Knapp MD - 04/07/2023 10:13 AM EDT -No heavy lifting greater than 10 lbs. for 6 weeks. No driving until seen in the office. May removedressing in 3 days (). Do not shower or get incision wet until dressing removed. -Call if you experience any bleeding, swelling, or pain in your groins documented in this [facility]08-16-2023 History of Present illness Narrative* Desi Knapp MD - 04/07/2023 10:10 AM EDT Department of General Surgery Daily Progress Note Vascular Service ADMIT DATE: 04/06/2023 TODAY'S DATE: 04/07/2023 SUBJECTIVE: NAEON. Pain well controlled. No fevers, chills/CP/SOB. OBJECTIVE: VITALS: BP 126/74 (BP Location: Right arm, Patient Position: Sitting) Pulse 67 Temp 37.1 C (98.7 F) (Temporal) Resp 16 SpO2 96% INTAKE/OUTPUT: I/O last 3 completed shifts: In: 2175 [P.O.:375; I.V.:1800] Out: 2850 [Urine:2700; Blood:150] No intake/output data recorded. PHYSICAL EXAM: Gen: NAD, A&Ox3, pain well controlled Heart: Well perfused Lungs: symmetric chest rise, normal work of breathing Abd: soft, non tender, non distended. Non rigid. Ext: groin incisions c/d/i Skin: warm, well perfused, <2 cm cap refill, no obvious rashes, cellulitis or gross discoloration Vasc: Right DP PT DS Left DP DS LABS CBC: Recent Labs 04/07/23 0344 WBC 13.8* HGB 11.0* HCT 33.4* PLT 172 BMP: Recent Labs 04/07/23 0344 NA 128* K 4.5 CL 100 CO2 21* BUN 17 CREATININE 0.85 GLUCOSE 149* Hepatic: No results for input(s): AST, ALT, BILITOT, ALKPHOS in the last 72 hours. No lab exists for component: ALB Current Inpatient Medications Scheduled Meds:acetaminophen, 650 mg, Oral, 4 times per day aspirin, 81 mg, Oral, Daily atorvastatin, 40 mg, Oral, Daily clopidogrel, 75 mg, Oral, Daily enoxaparin, 40 mg, SubCUTAneous, Daily gabapentin, 300 mg, Oral, TID insulin lispro, 0-12 Units, SubCUTAneous, TID WC And insulin lispro, 0-12 Units, SubCUTAneous, Nightly lisinopril, 40 mg, Oral, Daily sodium chloride 0.9%, 10 mL, IntraVENous, 2 times per day tamsulosin, 0.4 mg, Oral, Daily trospium, 20 mg, Oral, BID AC Continuous Infusions: PRN Meds:PRN medications: dextrose, dextrose, glucagon (rDNA), glucose, Labetalol HCl, morphine sulfate OR morphine sulfate, ondansetron ODT OR ondansetron, oxyCODONE, sodium chloride, sodiumchloride 0.9% ASSESSMENT AND PLAN: 67 y.o. male s/p FEVAR 04/06 Regular diet Remove handy, monitor for urinary retention Prn pain control Ambulate Dispo: okay to DC if able to urinate DW Dr. Jane Knapp MD General Surgery PGY-3 Pager # [phone] Associated attestation - Tian Lara MD - 04/07/2023 10:17 AM EDT Doing great Plan to discharge later today if he is able to urinate documented in this [facility]08-15-2023 Plan of care note* Care Plan - Dandre Leon Jr., RN - 04/06/2023 11:56 PM EDT Problem: Pain - Adult Goal: Verbalizes/displays adequate comfort level or baseline comfort level Outcome: Progressing Problem: Safety - Adult Goal: Free from fall injury Outcome: Progressing Problem: Discharge Planning Goal: Discharge to home or other facility with appropriate resources Outcome: Progressing [id number] Miscellaneous Notes* Care Plan - Dandre Leon Jr., RN - 04/06/2023 11:56 PM EDT Problem: Pain - Adult Goal: Verbalizes/displays adequate comfort level or baseline comfort level Outcome: Progressing Problem: Safety - Adult Goal: Free from fall injury Outcome: Progressing Problem: Discharge Planning Goal: Discharge to home or other facility with appropriate resources Outcome: Progressing * Op Note - Tian Lara MD - 04/06/2023 7:26 AM EDT Operative report Preop diagnosis: Abdominal aortic aneurysm juxtarenal Postoperative diagnosis: Same Procedure: Cook Zenith fenestrated stent graft repair of abdominal aortic aneurysm, 6 x 29 Viabahn stents in the renal arteries, bilateral common femoral artery exposures Surgeon: Macy Religious Education Director: Wes History: 67-year-old gentleman who during evaluation for prostate cancer was found to have a 6 cm abdominal aortic aneurysm. Patient does have comorbidities in addition it was felt to get him back onhis feet as soon as possible so he could begin his treatment for prostate cancer. We discussed the risk benefits and options of a fenestrated stent graft with him and his family and they agreed to proceed Procedure: Under general anesthesia he was prepped and draped in a sterile manner. Bilateral commonfemoral artery exposures were performed proximal distal control was obtained. Patient was anticoagulated. Using a Seldinger technique 6 [place]i sheaths were placed in each groin and Lunderquist wires were placed up each side. On the right side a 20 [place] sheath was placed without difficulty. The proximal portion of the main body was taken up the left side and positioned without difficulty. We then cannulated the main body from the right side and Dr. Vasquez passed 7 [place]i Ansell sheaths. Through these Ansell sheaths he cannulated first the left renal artery. At this point was able to pass the catheter into the left renal artery and then a Martin wire. The Ansell sheath was then advanced intothe renal artery and a 6 x 29 covered stent was placed without difficulty. On the right side we placed another 7 [place]i Ansell and used this to cannulate the right renal artery. A Martin wire and was then used to help advance the sheath into the renal artery and the 6 x 29 device was deployed positioned both renal stents were then deployed and ballooned into place both the ostium's were ballooned with a 10 x 2 balloons. At this point the sheaths were readvanced into the renal stents. We then deployed the next piece of the graft with the contralateral gate facing the right side. The contralateral gate was cannulated and a Coda balloon was positioned to confirm that we are in the proper place the 13 x 74 limb was chosen positioned above the hypogastric and deployed without difficulty on the right. The rest of the main main body was deployed on the left. The 16 x 56 limb was chosen on the left and deployed without difficulty. The Coda balloon was used to balloon all the appropriate anastomosis and distal graft. Completion angiogram revealed a good result there was appear apparent type II endoleak from a lumbar. The sheaths and wires were removed the common femoral arteries were repaired with 5-0 Prolene suture prior to completion the system was flushed backbled and de-aired. The wounds were thoroughly irrigated once hemostasis was obtained and closed with 2-0 Vicryl 3-0 Vicryl andsurgical clips. Dry sterile dressings were applied and patient was transferred to the recovery areain a stable manner * Op Note - Ford Vasquez MD - 04/06/2023 7:26 AM EDT OPERATIVE NOTE Yaakov Wells 1955 DATE OF PROCEDURE: 04/06/2023 SURGEON: FORD VASQUEZ M.D. SECOND SURGEON: TIAN LARA M.D. SHOP COORDINATOR(S): Dr. Joaquin Lopez PREOPERATIVE DIAGNOSIS: 6-cm juxtarenal abdominal aortic aneurysm. POSTOPERATIVE DIAGNOSIS: Same. OPERATION: Fenestrated endovascular repair of abdominal aortic aneurysm with bilateral renal artery covered stents. ANESTHESIA: General endotracheal. COMPLICATIONS: None Due to the complexity of the procedure, two vascular surgery attendings were necessary. DESCRIPTION OF PROCEDURE: The patient was identified and the procedure was confirmed. The abdomen, groins and thighs were prepped and draped in the usual sterile fashion. Dr. Lara exposed bilateral common femoral arteries and gained access sheaths and Lunderquist wires. The patient was heparinized. The large-bore sheath was inserted of the Lunderquist from the right without difficulty. The proximal portion of the main body was taken up the left side and positioned without difficulty and partially deployed. The main body was cannulated from the right side. Separate 7 [place]i Ansell sheaths wereplaced through the right side sheath and used to cannulate each renal artery separately over Martin wires. Through the Bola, 6 x 29 covered stent was placed at the left renal artery origin and extending into the aorta and flared with a 10 x 2 mm balloon. On the right side we placed another 7 FrenchAnsell and used this to cannulate the right renal artery. Through the Bola, 6 x 29 covered stent was placed at the right renal artery origin and extending into the aorta and flared with a 10 x 2 mm balloon. At this point the sheaths were readvanced into the renal stents. The distal main body was then deployed with the contralateral gate facing the right side. The contralateral gate was cannulated and a Coda balloon was inflated to confirm proper placement. After calibrated sheath injection, 13 x 74 limb was positioned proximal to the hypogastric and deployed without difficulty on the right. The rest of the main main body was deployed on the left. After sheath injection which demonstrated baseline left hypogastric occlusion, 16 x 56 limb was deployed on the leftand deployed without difficulty and with proper overlap. The Coda balloon was used to balloon all the appropriate anastomosis and distal graft. Completion angiogram revealed a good result with delayed filling of the sac from a lumbar artery and no evidence of type [address] Lara dictated sheath removal and closure separately. 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 (Active) Implants Type Name Action Serial No. Stent ZENITH FENESTRATED AAA ENDOVASCULAR GRAFT PROXIMAL BODY Implanted Peripheral Vasc Bare Metal Stent STENT VIABAHN BX 6X29MM 135CM - [id number] - [id number] Implanted [id number] Peripheral Vasc Bare Metal Stent STENT VIABAHN BX 6X29MM 135CM - [id number] - [id number] Implanted [id number] Stent ZENITH FENESTRATED AAA ENDOVASCULAR GRAFT DISTAL BODY Implanted Thoracic AAA Stent Graft GRAFT AAA ILIAC ZENITH - [id number] Implanted Thoracic AAA Stent Graft GRAFT AAA ILIAC ZENITH - [id number] Implanted Staff: Solutions Operator: Dandre Ruiz RN Veterinary Radiologist: Brandon Bruno Scrub Person: Racheal Cabrera RN Findings: juxtarenal AAA s/p fevar Postop exam: Right Dp/PT DS Left no signals. Foot warm and symmetric in color to right Complications: None; patient tolerated the procedure well. Specimens Collected: Order Name Source Comment Collection Info Order Time POTASSIUM WITH MG REFLEX For patients on dialysis to draw potassium day of surgery 04/06/2023 6:05 AM PROTHROMBIN TIME If patient on coumadin within 4 days prior. 04/06/2023 6:05 AM Wound Class: Class I: Clean Blood Products: None Prophylactic Antibiotics: Procedure appropriate prophylactic antibiotic(s) given within 1 hour of surgical incision (two hours if receiving Vancomycin or flouroquinolone) [id number] Nurse Note* Bina Ocampo RN - 04/06/2023 4:36 PM EDT Art line discontinued per protocol. Pt tolerated well. Occlusive drsg applied. Site agapito. [id number]* Op Note - Tian Lara MD - 04/06/2023 7:26 AM EDT Operative report Preop diagnosis: Abdominal aortic aneurysm juxtarenal Postoperative diagnosis: Same Procedure: Cook Zenith fenestrated stent graft repair of abdominal aortic aneurysm, 6 x 29 Viabahn stents in the renal arteries, bilateral common femoral artery exposures Surgeon: Macy Religious Education Director: Wes History: 67-year-old gentleman who during evaluation for prostate cancer was found to have a 6 cm abdominal aortic aneurysm. Patient does have comorbidities in addition it was felt to get him back onhis feet as soon as possible so he could begin his treatment for prostate cancer. We discussed the risk benefits and options of a fenestrated stent graft with him and his family and they agreed to proceed Procedure: Under general anesthesia he was prepped and draped in a sterile manner. Bilateral commonfemoral artery exposures were performed proximal distal control was obtained. Patient was anticoagulated. Using a Seldinger technique 6 [place]i sheaths were placed in each groin and Lunderquist wires were placed up each side. On the right side a 20 [place]i sheath was placed without difficulty. The proximal portion of the main body was taken up the left side and positioned without difficulty. We then cannulated the main body from the right side and Dr. Vasquez passed 7 [place]i Ansell sheaths. Through these Ansell sheaths he cannulated first the left renal artery. At this point was able to pass the catheter into the left renal artery and then a Martin wire. The Ansell sheath was then advanced intothe renal artery and a 6 x 29 covered stent was placed without difficulty. On the right side we placed another 7 [place] Ansell and used this to cannulate the right renal artery. A Martin wire and was then used to help advance the sheath into the renal artery and the 6 x 29 device was deployed positioned both renal stents were then deployed and ballooned into place both the ostium's were ballooned with a 10 x 2 balloons. At this point the sheaths were readvanced into the renal stents. We then deployed the next piece of the graft with the contralateral gate facing the right side. The contralateral gate was cannulated and a Coda balloon was positioned to confirm that we are in the proper place the 13 x 74 limb was chosen positioned above the hypogastric and deployed without difficulty on the right. The rest of the main main body was deployed on the left. The 16 x 56 limb was chosen on the left and deployed without difficulty. The Coda balloon was used to balloon all the appropriate anastomosis and distal graft. Completion angiogram revealed a good result there was appear apparent type II endoleak from a lumbar. The sheaths and wires were removed the common femoral arteries were repaired with 5-0 Prolene suture prior to completion the system was flushed backbled and de-aired. The wounds were thoroughly irrigated once hemostasis was obtained and closed with 2-0 Vicryl 3-0 Vicryl andsurgical clips. Dry sterile dressings were applied and patient was transferred to the recovery areain a stable manner [id number] Note* Op Note - Ford Vasquez MD - 04/06/2023 7:26 AM EDT OPERATIVE NOTE Yaakov Wells 1955 DATE OF PROCEDURE: 04/06/2023 SURGEON: FORD VASQUEZ M.D. SECOND SURGEON: TIAN LARA M.D. SHOP COORDINATOR(S): Dr. Joaquin Lopez PREOPERATIVE DIAGNOSIS: 6-cm juxtarenal abdominal aortic aneurysm. POSTOPERATIVE DIAGNOSIS: Same. OPERATION: Fenestrated endovascular repair of abdominal aortic aneurysm with bilateral renal artery covered stents. ANESTHESIA: General endotracheal. COMPLICATIONS: None Due to the complexity of the procedure, two vascular surgery attendings were necessary. DESCRIPTION OF PROCEDURE: The patient was identified and the procedure was confirmed. The abdomen, groins and thighs were prepped and draped in the usual sterile fashion. Dr. Lara exposed bilateral common femoral arteries and gained access sheaths and Lunderquist wires. The patient was heparinized. The large-bore sheath was inserted of the Lunderquist from the right without difficulty. The proximal portion of the main body was taken up the left side and positioned without difficulty and partially deployed. The main body was cannulated from the right side. Separate 7 [place]i Ansell sheaths wereplaced through the right side sheath and used to cannulate each renal artery separately over Martin wires. Through the Bola, 6 x 29 covered stent was placed at the left renal artery origin and extending into the aorta and flared with a 10 x 2 mm balloon. On the right side we placed another 7 FrenchAnsell and used this to cannulate the right renal artery. Through the Bola, 6 x 29 covered stent was placed at the right renal artery origin and extending into the aorta and flared with a 10 x 2 mm balloon. At this point the sheaths were readvanced into the renal stents. The distal main body was then deployed with the contralateral gate facing the right side. The contralateral gate was cannulated and a Coda balloon was inflated to confirm proper placement. After calibrated sheath injection, 13 x 74 limb was positioned proximal to the hypogastric and deployed without difficulty on the right. The rest of the main main body was deployed on the left. After sheath injection which demonstrated baseline left hypogastric occlusion, 16 x 56 limb was deployed on the leftand deployed without difficulty and with proper overlap. The Coda balloon was used to balloon all the appropriate anastomosis and distal graft. Completion angiogram revealed a good result with delayed filling of the sac from a lumbar artery and no evidence of type [address] Lara dictated sheath removal and closure separately. 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 (Active) Implants Type Name Action Serial No. Stent ZENITH FENESTRATED AAA ENDOVASCULAR GRAFT PROXIMAL BODY Implanted Peripheral Vasc Bare Metal Stent STENT VIABAHN BX 6X29MM 135CM - [id number] - [id number] Implanted [id number] Peripheral Vasc Bare Metal Stent STENT VIABAHN BX 6X29MM 135CM - [id number] - [id number] Implanted [id number] Stent ZENITH FENESTRATED AAA ENDOVASCULAR GRAFT DISTAL BODY Implanted Thoracic AAA Stent Graft GRAFT AAA ILIAC ZENITH - [id number] Implanted Thoracic AAA Stent Graft GRAFT AAA ILIAC ZENITH - [id number] Implanted Staff: Solutions Operator: Dandre Ruiz RN Veterinary Radiologist: Brandon Bruno Scrub Person: Racheal Cabrera RN Findings: juxtarenal AAA s/p fevar Postop exam: Right Dp/PT DS Left no signals. Foot warm and symmetric in color to right Complications: None; patient tolerated the procedure well. Specimens Collected: Order Name Source Comment Collection Info Order Time POTASSIUM WITH MG REFLEX For patients on dialysis to draw potassium day of surgery 04/06/2023 6:05 AM PROTHROMBIN TIME If patient on coumadin within 4 days prior. 04/06/2023 6:05 AM Wound Class: Class I: Clean Blood Products: None Prophylactic Antibiotics: Procedure appropriate prophylactic antibiotic(s) given within 1 hour of surgical incision (two hours if receiving Vancomycin or flouroquinolone) [employer] Phone: [phone]) 579-443708-15-2023 Note* Op Note - Tian Lara MD - 04/06/2023 7:26 AM EDT Operative report Preop diagnosis: Abdominal aortic aneurysm juxtarenal Postoperative diagnosis: Same Procedure: Cook Zenith fenestrated stent graft repair of abdominal aortic aneurysm, 6 x 29 Viabahn stents in the renal arteries, bilateral common femoral artery exposures Surgeon: Macy Religious Education Director: Wes History: 67-year-old gentleman who during evaluation for prostate cancer was found to have a 6 cm abdominal aortic aneurysm. Patient does have comorbidities in addition it was felt to get him back onhis feet as soon as possible so he could begin his treatment for prostate cancer. We discussed the risk benefits and options of a fenestrated stent graft with him and his family and they agreed to proceed Procedure: Under general anesthesia he was prepped and draped in a sterile manner. Bilateral commonfemoral artery exposures were performed proximal distal control was obtained. Patient was anticoagulated. Using a Seldinger technique 6 Kuwaiti sheaths were placed in each groin and Lunderquist wires were placed up each side. On the right side a 20 Kuwaiti sheath was placed without difficulty. The proximal portion of the main body was taken up the left side and positioned without difficulty. We then cannulated the main body from the right side and Dr. Vasquez passed 7 Kuwaiti Ansell sheaths. Through these Ansell sheaths he cannulated first the left renal artery. At this point was able to pass the catheter into the left renal artery and then a Martin wire. The Ansell sheath was then advanced intothe renal artery and a 6 x 29 covered stent was placed without difficulty. On the right side we placed another 7 Kuwaiti Ansell and used this to cannulate the right renal artery. A Martin wire and was then used to help advance the sheath into the renal artery and the 6 x 29 device was deployed positioned both renal stents were then deployed and ballooned into place both the ostium's were ballooned with a 10 x 2 balloons. At this point the sheaths were readvanced into the renal stents. We then deployed the next piece of the graft with the contralateral gate facing the right side. The contralateral gate was cannulated and a Coda balloon was positioned to confirm that we are in the proper place the 13 x 74 limb was chosen positioned above the hypogastric and deployed without difficulty on the right. The rest of the main main body was deployed on the left. The 16 x 56 limb was chosen on the left and deployed without difficulty. The Coda balloon was used to balloon all the appropriate anastomosis and distal graft. Completion angiogram revealed a good result there was appear apparent type II endoleak from a lumbar. The sheaths and wires were removed the common femoral arteries were repaired with 5-0 Prolene suture prior to completion the system was flushed backbled and de-aired. The wounds were thoroughly irrigated once hemostasis was obtained and closed with 2-0 Vicryl 3-0 Vicryl andsurgical clips. Dry sterile dressings were applied and patient was transferred to the recovery areain a stable manner [id number]* Op Note - Ford Vasquez MD - 04/06/2023 7:26 AM EDT OPERATIVE NOTE Yaakov Fraziermichele 1955 DATE OF PROCEDURE: 04/06/2023 SURGEON: FORD VASQUEZ M.D. SECOND SURGEON: TIAN LARA M.D. SHOP COORDINATOR(S): Dr. Joaquin Lopez PREOPERATIVE DIAGNOSIS: 6-cm juxtarenal abdominal aortic aneurysm. POSTOPERATIVE DIAGNOSIS: Same. OPERATION: Fenestrated endovascular repair of abdominal aortic aneurysm with bilateral renal artery covered stents. ANESTHESIA: General endotracheal. COMPLICATIONS: None Due to the complexity of the procedure, two vascular surgery attendings were necessary. DESCRIPTION OF PROCEDURE: The patient was identified and the procedure was confirmed. The abdomen, groins and thighs were prepped and draped in the usual sterile fashion. Dr. Lara exposed bilateral common femoral arteries and gained access sheaths and Lunderquist wires. The patient was heparinized. The large-bore sheath was inserted of the Lunderquist from the right without difficulty. The proximal portion of the main body was taken up the left side and positioned without difficulty and partially deployed. The main body was cannulated from the right side. Separate 7 Kuwaiti Ansell sheaths wereplaced through the right side sheath and used to cannulate each renal artery separately over Martin wires. Through the Bola, 6 x 29 covered stent was placed at the left renal artery origin and extending into the aorta and flared with a 10 x 2 mm balloon. On the right side we placed another 7 FrenchAnsell and used this to cannulate the right renal artery. Through the Bola, 6 x 29 covered stent was placed at the right renal artery origin and extending into the aorta and flared with a 10 x 2 mm balloon. At this point the sheaths were readvanced into the renal stents. The distal main body was then deployed with the contralateral gate facing the right side. The contralateral gate was cannulated and a Coda balloon was inflated to confirm proper placement. After calibrated sheath injection, 13 x 74 limb was positioned proximal to the hypogastric and deployed without difficulty on the right. The rest of the main main body was deployed on the left. After sheath injection which demonstrated baseline left hypogastric occlusion, 16 x 56 limb was deployed on the leftand deployed without difficulty and with proper overlap. The Coda balloon was used to balloon all the appropriate anastomosis and distal graft. Completion angiogram revealed a good result with delayed filling of the sac from a lumbar artery and no evidence of type [address] Lara dictated sheath removal and closure separately. 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 (Active) Implants Type Name Action Serial No. Stent ZENITH FENESTRATED AAA ENDOVASCULAR GRAFT PROXIMAL BODY Implanted Peripheral Vasc Bare Metal Stent STENT VIABAHN BX 6X29MM 135CM - [id number] - [id number] Implanted [id number] Peripheral Vasc Bare Metal Stent STENT VIABAHN BX 6X29MM 135CM - [id number] - [id number] Implanted [id number] Stent ZENITH FENESTRATED AAA ENDOVASCULAR GRAFT DISTAL BODY Implanted Thoracic AAA Stent Graft GRAFT AAA ILIAC ZENITH - [id number] Implanted Thoracic AAA Stent Graft GRAFT AAA ILIAC ZENITH - [id number] Implanted Staff: Solutions Operator: Dandre Ruiz RN Veterinary Radiologist: Brandon Bruno Scrub Person: Racheal Cabrera RN Findings: juxtarenal AAA s/p fevar Postop exam: Right Dp/PT DS Left no signals. Foot warm and symmetric in color to right Complications: None; patient tolerated the procedure well. Specimens Collected: Order Name Source Comment Collection Info Order Time POTASSIUM WITH MG REFLEX For patients on dialysis to draw potassium day of surgery 04/06/2023 6:05 AM PROTHROMBIN TIME If patient on coumadin within 4 days prior. 04/06/2023 6:05 AM Wound Class: Class I: Clean Blood Products: None Prophylactic Antibiotics: Procedure appropriate prophylactic antibiotic(s) given within 1 hour of surgical incision (two hours if receiving Vancomycin or flouroquinolone) [facility] Work Phone: 1(331) 488-666508-15-2023 Attending History and physical note* Tian Lara MD - 04/06/2023 7:02 AM EDT H&P reviewed. The patient was examined and there are no changes to the H&P. Interval History and Physical I have interviewed and examined the patient and reviewed the recent History and Physical. There have been no changes to the recent H&P documentation. The patient understands the planned operation and its associated risks and benefits and agrees to proceed. The surgical consent form has been signed. BP (!) 155/85 Pulse 74 Temp 36.2 C (97.2 F) (Temporal) Resp 16 SpO2 99% Impression: aaa Plan: fenestrated aortic stent graft Electronically signed by @MEMDNR@ on @TDNR@ at @NOWNR@ Source Note - Jolly Garrett APRN - HABITAT BIOLOGIST - 03/30/2023 2:00 PM EDT Images from the original note were not included. Comprehensive Pre Surgical History and Physical ? Name: Yaakov Wells : 1955 (Age-67 y.o.) Date of Service: Pt seen/examined on 03/30/2023 Procedure Information Date/Time: 04/06/23 0730 Procedures: FENESTRATED STENT GRAFT (Abdomen) - NEED: THAYER ROOM NEED: 240 MINUTES SECOND SURGEONON THE CASE IS DR. 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 Based on the above evaluation, the benefits of the planned procedure likely exceed the risks. The patient is medically optimized to proceed with the planned procedure without any further card iopulmonary testing. 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) [I71.42] - Managed per surgery - managed on Plavix-->instructed to continue taking per Surgeon - labs ordered per Surgeon: EKG, CBC, BMP, T&S, a1c - labs ordered per PAT protocol: CXR, PRBC-2 units 2) CAD - managed on Zocor - encouraged healthy lifestyle modifications 3) T2DM - managed on Metformin - Follows OP PCP 4) HTN- not well controlled BP Readings from Last 3 Encounters: 03/30/23 (!) 167/96 02/24/23 128/76 - managed on Lisinopril - patient encouraged to check his bp at home and follow up with PCP as OP - patient instructed if his BP is >180/110 dos his procedure will be delayed 5) BPH - managed on Flomax, Ditropan 6) Current tobacco use - smokes 1.5 packs/day for >50 years - encouraged smoking cessation prior to dos Visit Type: Pre-Admission Testing Visit Labs Ordered: YES - PER PAT PROTOCOL Sleep Referral Ordered: NO - ALREADY DIAGNOSED WITH MARCY AND PATIENT IS NOT COMPLIANT WITH CPAP Total time spent (which include face to face and non face to face encounters) : 30 minutes Toxic drug monitoring/narrow therapeutic index drug monitoring : # Drug name : Lisinopril # Route administered : n/a # Method of monitoring : n/a PAT Protocol referenced includes: 1. Anesthesia Lab Protocol Orders 2. Perioperative Cardiovascular Risk Assessment 3. Anesthesia Assessment 4. Pain Assessment and Acute Pain Service Consult (if appropriate) 5. Medical Clearance/Consult from Internal Medicine (IMS) 6. Shower/Wash Order (for designated surgeries) 7. MARCY Screen and Sleep Clinic Referral (if appropriate) History Of Present Illness: 67 y.o. male who we are asked to see/evaluate by Tian Lara MD for pre- operative evaluation prior to above procedure. Patient presented to [facility] with his daughter in no acute physical distress. He reports approximately 3 months ago patient was found to have an elevated PSA and his PCP sent him for CT scan where it was noted the patient to have a AAA. Last OV with Tian Lara MD 02/24/2023. He denies sob, cp, palpitations, abdominal discomfort, n/v/d/c fever or chills. 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 Medications Prior to Admission: Current Outpatient Medications on File Prior to Visit Medication Sig Dispense Refill Calcium Citrate-Vitamin D (CALCIUM CITRATE + D PO) Take by mouth 2 times daily. clopidogrel (Plavix) 75 MG tablet TAKE ONE TABLET BY MOUTH DAILY AT 9AM gabapentin (Neurontin) 300 MG capsule TAKE ONE CAPSULE BY MOUTH THREE TIMES DAILY @ 9AM-1PM-5PM latanoprost (Xalatan) 0.005 % ophthalmic solution INSTILL ONE DROP IN EACH EYE AT BEDTIME (BULK) lisinopril 40 MG tablet TAKE ONE TABLET BY MOUTH DAILY AT 9AM metFORMIN (Glucophage) 1000 MG tablet TAKE ONE TABLET BY MOUTH TWICE DAILY @ 9AM-5PM oxybutynin (Ditropan) 5 MG tablet Take 5 mg by mouth 2 times daily. simvastatin (Zocor) 40 MG tablet TAKE ONE TABLET BY MOUTH DAILY AT 5PM tamsulosin (Flomax) 0.4 MG 24 hr capsule Take 0.4 mg by mouth daily. ALPHA LIPOIC ACID PO Take by mouth daily. No current facility-administered medications on file prior to visit. CHRONIC NARCOTIC USE: No Allergies: Patient has no known allergies. If patient has opioid allergy, is it okay to take Acetaminophen: Yes Social History: TOBACCO: reports that he has been smoking cigarettes. He has a 110.00 pack-year smoking history. Lizbeth never used smokeless tobacco. ETOH: reports current alcohol use. Social History Substance and Sexual Activity Drug Use Yes Types: Marijuana Comment: smoking, 2-3x/month Family History: No family history on file. REVIEW OF SYSTEMS: Review of Systems Constitutional: Negative for chills and fever. HENT: Negative for congestion and trouble swallowing. Eyes: Negative for visual disturbance. Respiratory: Negative for cough and shortness of breath. Cardiovascular: Negative for chest pain, palpitations and leg swelling. Gastrointestinal: Negative for blood in stool and nausea. Genitourinary: Negative for difficulty urinating and dysuria. Skin: Negative for rash. Neurological: Negative for dizziness, syncope, light-headedness and headaches. Psychiatric/Behavioral: Negative for agitation and confusion. Physical Exam: Physical Exam Constitutional: General: He is not in acute distress. Appearance: Normal appearance. HENT: Head: Normocephalic and atraumatic. Mouth/Throat: Mouth: Mucous membranes are moist. Eyes: Extraocular Movements: Extraocular movements intact. Cardiovascular: Rate and Rhythm: Normal rate and regular rhythm. Heart sounds: Normal heart sounds. Pulmonary: Effort: Pulmonary effort is normal. Breath sounds: Normal breath sounds. Musculoskeletal: General: Normal range of motion. Cervical back: Normal range of motion and neck supple. Skin: General: Skin is warm and dry. Neurological: General: No focal deficit present. Mental Status: He is alert. Mental status is at baseline. Psychiatric: Mood and Affect: Mood normal. Behavior: Behavior normal. Vitals: Vitals Value Taken Time BP 167/96 03/30/23 1502 Temp 36.3 C (97.4 F) 03/30/23 1401 Pulse 71 03/30/23 1502 Resp 12 03/30/23 1401 SpO2 97 % 03/30/23 1401 Labs: No results found for: WBC, HGB, HCT, MCV, PLT Lab Results Component Value Date CREATININE 0.81 02/24/2023 EGFR >90.0 02/24/2023 Yovany's Simple Cardiac Risk Index: YOVANY'S SIMPLE CARDIAC RISK SCORE: 3 Interpretation: 0 Points Class I 0.5% 1 Point Class II 1.3% 2 Points Class III 3.6% 3+ Points Class IV 9.1% PAT Pain Score: Postop Pain Management Plan (Pain consult ordered?): Pain consult not indicated at this time ? EKG: ordered per Surgeon and reviewed by me and Dr. Alcazar. Per Dr. Alcazar-->No futher evaluation needed ECHO and EF:None on file METS <4 sob NO CP does not have to stop Electronically signed by: ENDY Hinkle CNP Date: 03/30/2023 at 3:11 PM [id number] History and physical note* Tian Lara MD - 04/06/2023 7:02 AM EDT H&P reviewed. The patient was examined and there are no changes to the H&P. Interval History and Physical I have interviewed and examined the patient and reviewed the recent History and Physical. There have been no changes to the recent H&P documentation. The patient understands the planned operation and its associated risks and benefits and agrees to proceed. The surgical consent form has been signed. BP (!) 155/85 Pulse 74 Temp 36.2 C (97.2 F) (Temporal) Resp 16 SpO2 99% Impression: aaa Plan: fenestrated aortic stent graft Electronically signed by @MEMDNR@ on @TDNR@ at @NOWNR@ Source Note - ENDY Hinkle CNP - 03/30/2023 2:00 PM EDT Images from the original note were not included. Comprehensive Pre Surgical History and Physical ? Name: Yaakov Wells : 1955 (Age-67 y.o.) Date of Service: Pt seen/examined on 03/30/2023 Procedure Information Date/Time: 04/06/23729 Procedures: FENESTRATED STENT GRAFT (Abdomen) - NEED: THAYER ROOM NEED: 240 MINUTES SECOND SURGEONON THE CASE IS DR. 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 Based on the above evaluation, the benefits of the planned procedure likely exceed the risks. The patient is medically optimized to proceed with the planned procedure without any further card iopulmonary testing. 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) [I71.42] - Managed per surgery - managed on Plavix-->instructed to continue taking per Surgeon - labs ordered per Surgeon: EKG, CBC, BMP, T&S, a1c - labs ordered per PAT protocol: CXR, PRBC-2 units 2) CAD - managed on Zocor - encouraged healthy lifestyle modifications 3) T2DM - managed on Metformin - Follows OP PCP 4) HTN- not well controlled BP Readings from Last 3 Encounters: 03/30/23 (!) 167/96 02/24/23 128/76 - managed on Lisinopril - patient encouraged to check his bp at home and follow up with PCP as OP - patient instructed if his BP is >180/110 dos his procedure will be delayed 5) BPH - managed on Flomax, Ditropan 6) Current tobacco use - smokes 1.5 packs/day for >50 years - encouraged smoking cessation prior to dos Visit Type: Pre-Admission Testing Visit Labs Ordered: YES - PER PAT PROTOCOL Sleep Referral Ordered: NO - ALREADY DIAGNOSED WITH MARCY AND PATIENT IS NOT COMPLIANT WITH CPAP Total time spent (which include face to face and non face to face encounters) : 30 minutes Toxic drug monitoring/narrow therapeutic index drug monitoring : # Drug name : Lisinopril # Route administered : n/a # Method of monitoring : n/a PAT Protocol referenced includes: 1. Anesthesia Lab Protocol Orders 2. Perioperative Cardiovascular Risk Assessment 3. Anesthesia Assessment 4. Pain Assessment and Acute Pain Service Consult (if appropriate) 5. Medical Clearance/Consult from Internal Medicine (IMS) 6. Shower/Wash Order (for designated surgeries) 7. MARCY Screen and Sleep Clinic Referral (if appropriate) History Of Present Illness: 67 y.o. male who we are asked to see/evaluate by Tian Lara MD for pre- operative evaluation prior to above procedure. Patient presented to [facility] with his daughter in no acute physical distress. He reports approximately 3 months ago patient was found to have an elevated PSA and his PCP sent him for CT scan where it was noted the patient to have a AAA. Last OV with Tian Lara MD 02/24/2023. He denies sob, cp, palpitations, abdominal discomfort, n/v/d/c fever or chills. 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 Medications Prior to Admission: Current Outpatient Medications on File Prior to Visit Medication Sig Dispense Refill Calcium Citrate-Vitamin D (CALCIUM CITRATE + D PO) Take by mouth 2 times daily. clopidogrel (Plavix) 75 MG tablet TAKE ONE TABLET BY MOUTH DAILY AT 9AM gabapentin (Neurontin) 300 MG capsule TAKE ONE CAPSULE BY MOUTH THREE TIMES DAILY @ 9AM-1PM-5PM latanoprost (Xalatan) 0.005 % ophthalmic solution INSTILL ONE DROP IN EACH EYE AT BEDTIME (BULK) lisinopril 40 MG tablet TAKE ONE TABLET BY MOUTH DAILY AT 9AM metFORMIN (Glucophage) 1000 MG tablet TAKE ONE TABLET BY MOUTH TWICE DAILY @ 9AM-5PM oxybutynin (Ditropan) 5 MG tablet Take 5 mg by mouth 2 times daily. simvastatin (Zocor) 40 MG tablet TAKE ONE TABLET BY MOUTH DAILY AT 5PM tamsulosin (Flomax) 0.4 MG 24 hr capsule Take 0.4 mg by mouth daily. ALPHA LIPOIC ACID PO Take by mouth daily. No current facility-administered medications on file prior to visit. CHRONIC NARCOTIC USE: No Allergies: Patient has no known allergies. If patient has opioid allergy, is it okay to take Acetaminophen: Yes Social History: TOBACCO: reports that he has been smoking cigarettes. He has a 110.00 pack-year smoking history. Lizbeth never used smokeless tobacco. ETOH: reports current alcohol use. Social History Substance and Sexual Activity Drug Use Yes Types: Marijuana Comment: smoking, 2-3x/month Family History: No family history on file. REVIEW OF SYSTEMS: Review of Systems Constitutional: Negative for chills and fever. HENT: Negative for congestion and trouble swallowing. Eyes: Negative for visual disturbance. Respiratory: Negative for cough and shortness of breath. Cardiovascular: Negative for chest pain, palpitations and leg swelling. Gastrointestinal: Negative for blood in stool and nausea. Genitourinary: Negative for difficulty urinating and dysuria. Skin: Negative for rash. Neurological: Negative for dizziness, syncope, light-headedness and headaches. Psychiatric/Behavioral: Negative for agitation and confusion. Physical Exam: Physical Exam Constitutional: General: He is not in acute distress. Appearance: Normal appearance. HENT: Head: Normocephalic and atraumatic. Mouth/Throat: Mouth: Mucous membranes are moist. Eyes: Extraocular Movements: Extraocular movements intact. Cardiovascular: Rate and Rhythm: Normal rate and regular rhythm. Heart sounds: Normal heart sounds. Pulmonary: Effort: Pulmonary effort is normal. Breath sounds: Normal breath sounds. Musculoskeletal: General: Normal range of motion. Cervical back: Normal range of motion and neck supple. Skin: General: Skin is warm and dry. Neurological: General: No focal deficit present. Mental Status: He is alert. Mental status is at baseline. Psychiatric: Mood and Affect: Mood normal. Behavior: Behavior normal. Vitals: Vitals Value Taken Time BP 167/96 03/30/23 1502 Temp 36.3 C (97.4 F) 03/30/23 1401 Pulse 71 03/30/23 1502 Resp 12 03/30/23 1401 SpO2 97 % 03/30/23 1401 Labs: No results found for: WBC, HGB, HCT, MCV, PLT Lab Results Component Value Date CREATININE 0.81 02/24/2023 EGFR >90.0 02/24/2023 Yovany's Simple Cardiac Risk Index: YOVANY'S SIMPLE CARDIAC RISK SCORE: 3 Interpretation: 0 Points Class I 0.5% 1 Point Class II 1.3% 2 Points Class III 3.6% 3+ Points Class IV 9.1% PAT Pain Score: Postop Pain Management Plan (Pain consult ordered?): Pain consult not indicated at this time ? EKG: ordered per Surgeon and reviewed by me and Dr. Alcazar. Per Dr. Alcazar-->No futher evaluation needed ECHO and EF:None on file METS <4 sob NO CP does not have to stop Electronically signed by: Jolly Garrett, ENDY - KAITLIN Date: 03/30/2023 at 3:11 PM documented in this [facility]07-05-2023 History of Present illness Narrative* Tian Lara MD - 02/24/2023 2:15 PM EDT Vascular Surgery Outpatient Consultation Chief Complaint Patient presents with New Patient (ref Dr. Montes) AUDIT PRACTICE INTERN eval for AAA (needs fenestrated stent graft), CTA 02/01/23 Reason for Consult: AAA Requesting Physician: Dr. Montes/Tata HISTORY OF PRESENT ILLNESS: The patient is a 67 y.o. male who states he was found to have a AAA during evaluation for his prostate cancer. He has been given a hormone injection and the plan is for radiation He denies any CAD orchest pain. He does smoke, is DM, and has HTN . HE has had a stroke in the past Past Medical History: Past Medical History: Diagnosis Date Aneurysm (CMS/HCC) (HCC) Coronary artery disease Prostate cancer (HCC) Stroke (HCC) Past Surgical History: History reviewed. No pertinent surgical history. Current Medications: Prior to Admission medications Medication Sig Start Date End Date Taking? Authorizing Provider gabapentin (Neurontin) 300 MG capsule TAKE ONE CAPSULE BY MOUTH THREE TIMES DAILY @ 9AM-1PM-5PM 02/03/23 Historical Provider, latanoprost (Xalatan) 0.005 % ophthalmic solution INSTILL ONE DROP IN EACH EYE AT BEDTIME (BULK) 01/29/23 Historical Provider, lisinopril 40 MG tablet TAKE ONE TABLET BY MOUTH DAILY AT 9AM 02/03/23 Historical Provider, metFORMIN (Glucophage) 1000 MG tablet TAKE ONE TABLET BY MOUTH TWICE DAILY @ 9AM-5PM 02/03/23 Historical Provider, oxybutynin (Ditropan) 5 MG tablet Take 5 mg by mouth 2 times daily. 02/02/23 Historical Provider, simvastatin (Zocor) 40 MG tablet TAKE ONE TABLET BY MOUTH DAILY AT 5PM 02/03/23 Historical Provider, tamsulosin (Flomax) 0.4 MG 24 hr capsule Take 0.4 mg by mouth daily. 01/17/23 Historical Provider, Allergies: Patient has no known allergies. Social History Socioeconomic History Marital status: Spouse name: Not on file Number of children: Not on file Years of education: Not on file Highest education level: Not on file Occupational History Not on file Tobacco Use Smoking status: Every Day Packs/day: 2.00 Types: Cigarettes Smokeless tobacco: Never Substance and Sexual Activity Alcohol use: Not Currently Comment: socially Drug use: Never Sexual activity: Not on file Other Topics Concern Not on file Social History Narrative Not on file Social Determinants of Health Financial Resource Strain: Not on file Food Insecurity: Not on file Transportation Needs: Not on file Physical Activity: Not on file Stress: Not on file Social Connections: Not on file Intimate Partner Violence: Not on file Housing Stability: Not on file No family history on file. Review of Systems Constitutional: Negative. HENT: Negative. Eyes: Negative. Respiratory: Positive for apnea and shortness of breath. Cardiovascular: Negative. Gastrointestinal: Negative. Endocrine: Negative. Genitourinary: Positive for hematuria (trace, urology following). Musculoskeletal: Negative. Skin: Negative. Neurological: Positive for dizziness (positional), weakness (generalized) and numbness (legs). Hematological: Negative. Psychiatric/Behavioral: Negative. LABS: Lab Results Component Value Date CREATININE 0.81 02/24/2023 No results found for: WBC, HGB, HCT, MCV, PLT No results found for: INR, PROTIME No results found for: VLDL Physical Exam Vitals and nursing note reviewed. Constitutional: Appearance: Normal appearance. He is normal weight. HENT: Head: Normocephalic and atraumatic. Right Ear: Tympanic membrane normal. Left Ear: Tympanic membrane normal. Nose: Nose normal. Mouth/Throat: Mouth: Mucous membranes are moist. Pharynx: Oropharynx is clear. Eyes: General: Lids are normal. Extraocular Movements: Extraocular movements intact. Conjunctiva/sclera: Conjunctivae normal. Pupils: Pupils are equal, round, and reactive to light. Neck: Comments: No bruits Cardiovascular: Rate and Rhythm: Normal rate and regular rhythm. Pulses: Normal pulses. Carotid pulses are 2+ on the right side and 2+ on the left side. Radial pulses are 2+ on the right side and 2+ on the left side. Femoral pulses are 2+ on the right side and 2+ on the left side. Dorsalis pedis pulses are 2+ on the right side and 2+ on the left side. Posterior tibial pulses are 2+ on the right side and 2+ on the left side. Heart sounds: Normal heart sounds. Pulmonary: Effort: Pulmonary effort is normal. Breath sounds: Normal breath sounds. Abdominal: General: Abdomen is flat. Bowel sounds are normal. Palpations: Abdomen is soft. Musculoskeletal: General: Normal range of motion. Cervical back: Normal range of motion and neck supple. Skin: General: Skin is warm and dry. Capillary Refill: Capillary refill takes less than 2 seconds. Neurological: General: No focal deficit present. Mental Status: He is alert and oriented to person, place, and time. Psychiatric: Mood and Affect: Mood normal. 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 His overall health seems to favor the stent graft Will get a CTA and see if a fenestrated stent graft can be built No follow-ups on file. . [facility] noteNo assessment information availableW[facility] Work Phone: Evaluation note* Diagnosis Onset Date Resolution Status Infrarenal abdominal aortic aneurysm (AAA) without rupture acute 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 Work Phone: Evaluation note* Diagnosis Onset Date Resolution Status [id number] acute [id number] acute [id number] acute [id number] acute [id number] acute [id number] acute [id number] acute [facility] Work Phone: evaluation note* Diagnosis Onset Date Resolution Status [id number] acute [facility] Work Phone: Evaluation note* Diagnosis Onset Date Resolution Status Admit Date Primary malignant neoplasm o f prostate with high risk of recurrence due to acute February 26, 2025 7:53am [facility] Work Phone: Progress note Author Milton Tabor [facility] Note Date/Time February 26, 2025 8:51a m [address] [place] [address] OFFICE VISIT Date of Service: 07/03/16 827 MR#: [id number] Acct: [id number] Name: YAAKOV WELLS Rep #: [id number] : 1955 From: Milton Abelardo chin DO Age/Sex: 69/M Location: [facility] Status: Signed Intake Vital Signs 08/28/24 08:34 02/26/25 08:29 Height 5 ft 10 in 5 ft 9 in Weight: 176 lb 9 oz BMI 26.0 BP 175/75 H Blood Pressure Location Rt brachial Position Sitting Respiration 18 Pulse 69 Pulse Source Monitor Temp 96.8 F L Temperature Source Temporal Artery Pulse Oximetry (%) 97 Oxygen Delivery Method room air Intake Visit Reasons: 6 MONTH F/U PROSTATE, PSA PRIOR Is patient in pain?: No Allergies No Known Allergies Allergy (Verified 02/26/25 08:32) Medications ?Medication ?Instructions ?Recorded ?Confirmed ?Type clopidogrel 75 mg tablet 75 mg PO DAILY 02/09/2303/16 History gabapentin 300 mg capsule 300 mg PO TID 02/09/2302/26 History latanoprost 0.005 % eye drops, 1 drp ophthalmic (eye) DAILY 02/09/23 02/26/25 History emulsion lisinopril 40 mg tablet 40 mg PO DAILY 02/09/2303/16 History simvastatin 40 mg tablet 40 mg PO QHS 02/09/23 History tamsulosin 0.4 mg capsule 0.4 mg PO QHS 02/09/2302/26 History calcium 200 mg (as 1 tab PO DAILY 03/11/2303/16 History citrate)-vitamin D3 3.125 mcg (125 unit) tablet metformin 1,000 mg tablet 1,000 mg PO DAILY 02/21/24 0 02/26/25 History alpha lipoic acid 600 mg capsule 600 mg PO QDAY 02/26/25 History amlodipine 5 mg tablet 5 mg PO QDAY 08/28/24 History Have you fallen in the past year?: No PFSH PFSH Medical History Wears hearing aid Blurry vision Wears glasses Cancer Alcohol use Diabetes Bladder disease Neck pain TIA (transient ischemic attack) Difficulty chewing Constipation CPAP (continuous positive airway pressure) dependence Shortness of breath on exertion Smoker Chronic cough History of pain when walking History of edema AAA (abdominal aortic aneurysm) Abnormal prostate biopsy (~12/2022) Hearing loss Phlebitis and thrombophlebitis of deep vein of lower extremity Cerebrovascular disease History of nocturia Hypertension Dysuria Bronchitis Prostatic hyperplasia, benign localized Incomplete bladder emptying Heart disease Prostate cancer Home Medications ?Medication ?Instructions ?Recorded ?Last Taken ?Type clopidogrel 75 mg tablet 75 mg PO DAILY 02/09/2301/12 History gabapentin 300 mg capsule 300 mg PO TID 02/09/2306/02 History latanoprost 0.005 % eye drops, 1 drp ophthalmic (eye) DAILY 02/09/23 06/02/23 History emulsion lisinopril 40 mg tablet 40 mg PO DAILY 02/09/2305/23 04:45 History simvastatin 40 mg tablet 40 mg PO QHS 02/09/23 Unknow n History tamsulosin 0.4 mg capsule 0.4 mg PO QHS 02/09/23 Unkno wn History calcium 200 mg (as 1 tab PO DAILY 03/11/2305/23 History citrate)-vitamin D3 3.125 mcg (125 unit) tablet metformin 1,000 mg tablet 1,000 mg PO DAILY 02/21/24 U nknown History alpha lipoic acid 600 mg capsule 600 mg PO QDAY Unknown History amlodipine 5 mg tablet 5 mg PO QDAY 08/28/24 Unknow n History Allergy/AdvReac Type Severity Reaction Status Date / Time No Known Allergies Allergy Verified 02/26/25 08:32 Family History Mother Cancer Arthritis Hypertension Father Diabetes Hypertension Surgical History S/P AAA (abdominal aortic aneurysm) repair Hx of cardiac catheterization Social History Smoking Status: Heavy Smoker (>10/day) alcohol intake: current Diagnosis: Yaakov Wells is a 69-year-old old male diagnosed with 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 From 06/21/2023 ? 07/29/2023 he received definitive radiation therapy with ADT. History of Present Illness: 01/12/2023: Patient completed TRUS guided prostate biopsy.? Pathology demonstrated Imbler 3+4 adenocarcinoma involving less than 5% of 1/1 core in the right prostate apex, less than 5% of 1/2 cores in the right prostate base, about 90% of 1/1 core in the left prostate apex, greater than 95% of 2/2 cores involving the left prostate mid, and greater than 95% of 2/2 cores in the left prostate base.? 3 biopsies did not contain malignancy. 01/27/2023: Bone scan was performed.? This demonstrated no evidence for osseous disease. 02/01/2023: CT abdomen/pelvis with contrast was performed.? This demonstrated an elongated infrarenal aortic aneurysm with a greatest diameter of 6.8 cm as well as moderate heterogeneous enlargement of the prostate gland. From 06/21/2023 ? 07/29/2023: received definitive radiation therapy consisting vi4232 cGy delivered to the prostate and seminal vesicles and 5040 cGy delivered to the at risk pelvic lymph nodes all in 28 fractions. He was treated using a VMAT technique with 10 MV photons. Radiation Treatment History: 1) From 06/21/2023 ? 07/29/2023: received definitive radiation therapy consistingof 7000 cGy delivered to the prostate and seminal vesicles and 5040 cGy delivered to the at risk pelvic lymph nodes all in 28 fractions. He was treated using a VMAT technique with 10 MV photons. Interval History: Patient returns for follow-up approximately 19 months after completing definitive radiation therapy. Since his last visit 6 months ago he does report doing well overall. He does report intermittency almost always, weak stream more than half the time, urgency about half the time, frequency less than half the time, incomplete emptying and straining less than 1 time in 5. He has nocturia about 1 per night. He does take Flomax once per day, when he stopped this his urinary symptoms to get worse. He denies having current dysuria and denies hematuria. He denies leakage or incontinence. He reports intermittent constipation at baseline, he does take MiraLAX about every day. Stool is soft but no diarrhea. He denies rectal pain or bleeding. He denies cough, shortnessof breath, chest pain, bone pain. Energy level has slowly recovered but he still has some fatigue. Denies hot flashes. Just completed his last ADT in thelast couple months. He is able to complete ADLs without much difficulty and he denies having other problems or concerns at this time. Review of Systems: A 12-point review of systems was completed and was negative except for what is noted in the HPI/Interval History and by the nurse. Physical Exam: Weight: 176 lbs 9 oz ECO KARNOFSKY SCORE: 70% CONSTITUTIONAL: Well-developed, well-nourished, and in no apparent distress. NECK: Supple, no thyromegaly, and non-tender. Trachea midline. No cervical or supraclavicular adenopathy noted. CARDIAC: Regular rate and rhythm. Normal S1, S2. No murmurs, rubs, or gallops. PULMONARY/CHEST: Lungs are clear to auscultation and percussion bilaterally. No wheezes, rhonchi, or crackles noted. No increased work of breathing. EXTREMITIES: Full range of motion in all four extremities. No evidence of edema. ISMAEL: Deferred PSYCHIATRIC: Appropriate mood and affect for the clinical situation. Imaging: As per HPI Laboratory Data: PSA: 12/07/2022: 31.0 08/18/2023: 12.0 02/16/2024: 1.32 05/19/2024: 0.30 08/28/2024: 0.16 12/04/2024: 0.10 02/26/2025: 0.07 Assessment & Plan Assessment/Plan (1) Primary malignant neoplasm of prostate with high risk of recurrence due to Giorgi score of 8 to 10 and PSA greater than 20: PLAN: Plan Assessment: Yaakov Wells is a 69-year-old old male diagnosed with 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 From 06/21/2023 ? 07/29/2023 he received definitive radiation therapy with ADT. Plan: Patient presents for follow-up approximately 19 months after completing definitive radiation therapy with ADT for high risk prostate cancer. He is doing well and appears to have recovered from treatment associated toxicities. He continues to have urinary symptoms which is fairly consistent with his baseline pretreatment symptoms and is taking Flomax once per day. PSA continuesto fall and is now 0.07. He does not have any signs or symptoms concerning for development of disease progression or metastatic disease. Recommend that he have a PSA drawn every 3-6 months to closely follow. ADT completed. Elevated blood pressure is being evaluated and managed by his PCP, he is asymptomatic today. I will plan to see him in about 6 months. He was instructed to call with any further questions or concerns in the interim. Thank you for allowing me to participate in the management and care of your patient. If I may answer any questions in the interim, please do not hesitate tocontact me at any time. Milton Tabor DO, MS [employer], Department of Radiation Oncology [facility] Coding Level of Care Code Off vis,est,level 3 Diagnoses Primary malignant neoplasm of prostate with high risk of recurrence due to Imbler score of 8 to 10 and PSA greater than 20 C61 02/26/25 0851 <Electronically signed by Milton Tabor DO> Date _ Milton Tabor DO Cosigner Signature: Date (if applicable) CC: ~ [facility] Work Phone: Reason for referral (narrative)No reason for referral information availableWDelaware [facility] Hospital Work Phone: Chief Complaint and Reason for Visit Chief Complaint C61 PROSTATE CANCER Chief Complaint C61 PROSTATE CANCER AORTIC ANEURYSM AAA, PRE-OP Reason for Visit Infrarenal abdominal aortic aneurysm (AAA) without rupture Chief Complaint C61 PROSTATE CANCER AORTIC ANEURYSM AAA, PRE-OP POSSIBLE UTI Dysuria Reason for Visit Infrarenal abdominal aortic aneurysm (AAA) without rupture Dysuria Chief Complaint AAA, PRE-OP POSSIBLE UTI Dysuria CONSULT - PROSTATE Space OAR gel and Gold markers placement PROSTATE CA URBAN Reason for Visit Dysuria [id number] Chief Complaint CONSULT - PROSTATE Space OAR gel and Gold markers placement PROSTATE CA OTV OTV OTV OTV OTV OTV URBAN Amb Documentation Reason for Visit [id number] Chief Complaint 1 MONTH F/U POST RT AAA MONITORING Reason for Visit [id number] Chief Complaint Admit Date EVALUATE FOR ENDOLEAK August 04 6:40am 6 MONTH F/U PROSTATE, PSA PRIOR August 28, 2024 7:56am URBAN August 28, 2024 8: 00am COLONOSCOPY September 05, 2024 2 :05pm Reason for Visit Admit Date Primary malignant neoplasm o f prostate with high risk of recurrence due to August 28, 2024 7:56am Screen for colon cancer September 05 2:05pm Chief Complaint Admit Date 6 MONTH F/U PROSTATE, PSA PRIOR August 28, 2024 7:56am URBAN August 28, 2024 8: 00am COLONOSCOPY September 05, 2024 2 :05pm Chief Complaint Admit Date 6 MONTH F/U PROSTATE, PSA PRIOR February 7:53am URBAN February 26, 2025 8:00a m Reason for Visit Admit Date Primary malignant neoplasm o f prostate with high risk of recurrence due to February 26, 2025 7:53am Chief Complaint Admit Date 6 MONTH F/U PROSTATE, PSA PRIOR February 7:53am URBAN February 26, 2025 8:00a m [employer] May 28, 2025 9:36am Family History Relationship Condition Age at Onset Recorded Date/T dimitris mother Malignant neoplasm Unknown Arthritis Unknown Hypertension Unknown father Diabetes mellitus Unknown Reason for Referral Specialty Diagnoses / Procedures Referred By Contac t Referred To Contact Radiology Diagnoses 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) Procedures CTA abdomen pelvis angiogram w and/or wo IV contrast Tian Lara MD [address] [facility] [address] [place] [address] Referral ID Status Reason Start Date Expiration Date V isits Requested Visits Authorized [id number] Pending Review 02/24/2023 08/23/2023 1 1 Specialty Diagnoses / Procedures Referred By Contac t Referred To Contact Radiology Diagnoses 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) Procedures CTA abdomen pelvis angiogram w and/or wo IV contrast Tian Lara MD [address] [place] [address] [facility] [address] [place] [address] Referral ID Status Reason Start Date Expiration Date Visits Re quested Visits Authorized [id number] Closed 02/24/2023 08/23/2023 1 1 Specialty Diagnoses / Procedures Referred By Contac t Referred To Contact Cardiology Diagnoses 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) Procedures Vascular US EVAR evaluation duplex Tian Lara MD [address] [place] [address] Referral ID Status Reason Start Date Expiration Date Visits Requested Visits Authorized [id number] Pending Review Perform Procedure 04/21/2023 10/18/2023 1 1 Advance Directives Documents on File Type Date Recorded Patient 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 Expl anation Power of Electronic Health Records Specialist 03/30/2023 1:45 PM Advance Directives and Livin g Will 03/30/2023 1:44 PM Documents on File Type Date Recorded Patient 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 Expl anation Power of Electronic Health Records Specialist 03/30/2023 1:45 PM Advance Directives and Livin g Will 03/30/2023 1:44 PM Latest Code Status on File Code Status Date Activated Date Inactivated Comments Full Code 04/06/2023 6:05 AM 04/07/2023 2:49 PM Advance Directive Response Recorded Date/ Time Name of Medical Power of Electronic Health Records Specialist DAUGHTER May 26, 2023 1:04pm Living Will Yes May 26 1:04pm Power of Electronic Health Records Specialist Yes May 26, 2 023 1:04pm Advance Directive Response Recorded Date/ Time Name of Medical Power of Electronic Health Records Specialist DAUGHTER May 26, 2023 12:04pm Living Will Yes May 26 12:04pm Power of Electronic Health Records Specialist Yes May 26, 2 023 12:04pm Advance Directive Response Recorded Date/ Time Living Will Yes May 26 1:04pm Power of Electronic Health Records Specialist Yes May 26, 2 023 1:04pm Date Activated Date Inactivated Comments 04/06/2023 6:05 AM 04/07/2023 2:49 PM Advance Directive Response Recorded Date/ Time Living Will Yes May 26 1:04pm Do you have a Healthcare Power of Electronic Health Records Specialist? Yes May 26, 2023 1:04pm Summary Purpose Additional Source Comments Goals (unrecognized section and content) Goals may be documented in a n alternate sectionGoals may be documented in an alternate sectionGoals may be documented in an alternate sectionGoals may be documented in an alternate sectionGoals may be documented in an alternate sectionGoals may be documented in an alternate sectionGoals may be documented in an alternate sectionGoals may be documented in an alternate sectionGoals may be documented in an alternate sectionGoals may be documented in an alternate sectionGoals may be documented in an alternate section Care Teams (unrecognized sec tion and content) Team Status: Active Member Role Status Dates Dr. Virgil Payton MD Family Provider Active Dr. Virgil Payton MD Primary Care Provider Active Team Status: Inactive Member Role Status Dates Dr. Virgil Payton MD Primary Care Provider, Attending Provider Active Team Status: Inactive Member Role Status Dates Dr. Virgil Payton MD Primary Care Provider Active Dr. Josué Lara MD Attending Provider, Referr ing Provider Active Team Status: Inactive Member Role Status Dates Dr. Virgil Payton MD Primary Care Provider, Referring Provider Active Dr. Dorian Montes MD Attending Provider Active Team Status: Inactive Member Role Status Dates Dr. Virgil Payton MD Primary Care Provider Active ERIN Vaughn Attending Provider, Referring Provider Active Continuity Editor Relationship Specialty Start Date End Date Virgil Payton MD [address] [facility] [address] [place] [address] PCP - General Family Medicine 02/24/23 Tian Lara MD [address] [place] [address], [address] [place] [address] Consulting Physician Vascular Surgery 02/24/23 Dorian Montes MD Referring Physician Vascular Surgery 02/17/23 Continuity Editor Relationship Specialty Start Date End Date Virgil Payton MD [address] [facility] [address] [place] [address] PCP - General Family Medicine 02/24/23 Tian Lara MD [address] [place] [address], [address] [place], [place] [id number] Consulting Physician Vascular Surgery 02/24/23 Dorian Montes MD Referring Physician Vascular Surgery 02/17/23 Team Status: Inactive Member Role Status Dates Dr. Virgil Payton MD Primary Care Provider, Referring Provider Active ERIN Agosto Attending Provider Active Team Status: Inactive Member Role Status Dates Dr. Virgil Payton MD Primary Care Provider Active ERIN Agosto Attending Provider, Referring Provi chris Active Continuity Editor Relationship Specialty Start Date End Date Virgil Payton MD [address] [facility] [address] [place] [phone] PCP - General Family Medicine 02/24/23 Tian Lara MD [address] [place] [address] [address] [place] [address] Consulting Physician Vascular Surgery 02/24/23 Dorian Montes MD Referring Physician Vascular Surgery 02/17/23 Continuity Editor Relationship Specialty Start Date End Date Virgil Payton MD [address] [facility] [address] [place] [id number] PCP - General Family Medicine 02/24/23 Tian Lara MD [address] [place] [address] Consulting Physician Vascular Surgery 02/24/23 Dorian Montes MD Referring Physician Vascular Surgery 02/17/23 Continuity Editor Relationship Specialty Start Date End Date Virgil Payton MD [address] [facility] [address] [place] [phone] PCP - General Family Medicine 02/24/23 Tian Lara MD [address] [place] [address] Consulting Physician Vascular Surgery 02/24/23 Dorian Montes MD Referring Physician Vascular Surgery 02/17/23 Team Status: Inactive Member Role Status Dates Dr. Virgil Payton MD Primary Care Provider Active Dr. Milton Tabor DO Attending Provider Active Dr. Josué Lara MD Referring Provider Active Team Status: Active Member Role Status Dates Dr. Virgil Payton MD Primary Care Provider Active Dr. Milton Tabor DO Attending Provider Active Team Status: Inactive Member Role Status Dates Dr. Virgil Payton MD Primary Care Provider Active ERIN Osuna Attending Provider, Referring Provid er Active Team Status: Active Member Role Status Dates Dr. Virgil Payton MD Primary Care Provider Active Dr. Milton Tabor DO Attending Provider, Referring P rovider Active Team Status: Inactive Member Role Status Dates Dr. Virgil Payton MD Primary Care Provider Active Dr. Milton Tabor DO Attending Provider, Referring P rovider Active Team Status: Inactive Member Role Status Dates Dr. Virgil Payton MD Primary Care Provider Active Dr. Venu Pham MD Active Dr. Milton Tabor DO Attending Provider, Referring P rovider Active Team Status: Inactive Member Role Status Dates Dr. Virgil Payton MD Primary Care Provider, Referring Provider Active Dr. Milton Tabor DO Attending Provider Active Team Status: Active Member Role Status Dates Dr. Virgil Payton MD Primary Care Provider Active Dr. Dorian Montes MD Attending Provider Active Team Status: Inactive Member Role Status Dates Dr. Virgil Payton MD Primary Care Provider Active JANE SHEA Attending Provider, Referring Provid er Active Continuity Editor Relationship Specialty Start Date End Date Virgil Payton MD [address] [facility] [address] [place] [phone] PCP - General Family Medicine 02/24/23 Tian Lara MD [address] [place] [address] Consulting Physician Vascular Surgery 02/24/23 Dorian Montes MD Referring Physician Vascular Surgery 02/17/23 Team Status: Active Member Role Status Dates Dr. Virgil Payton MD Primary Care Provider Active Team Status: Inactive Member Role Status Dates Dr. Virgil Payton MD Primary Care Provider Active Start: August 04, 2024 End: August 04, 2024 Dr. Dorian Montes MD Attending Provider Active S tart: August 04, 2024 End: August 04, 2024 Dr. Dorian Montes MD Referring Provider Active S tart: August 04, 2024 End: August 04, 2024 Team Status: Inactive Member Role Status Dates Dr. Virgil Payton MD Primary Care Provider Active Start: August 28, 2024 End: August 28, 2024 Dr. Milton Tabor DO Attending Provider Active Start: August 28, 2024 End: August 28, 2024 Team Status: Active Member Role Status Dates Dr. Virgil Payton MD Primary Care Provider Active Start: August 28, 2024 Dr. Milton Tabor DO Attending Provider Active Start: August 28, 2024 Dr. Milton Tabor DO Referring Provider Active Start: August 28, 2024 Team Status: Inactive Member Role Status Dates Dr. Virgil Payton MD Primary Care Provider Active Start: September 05, 2024 End: September 05, 2024 Dr. Virgil Payton MD Referring Provider Active Start: September 05, 2024 End: September 05, 2024 Dr. Nghia Valdivia MD Attending Provider Active Start: September 05, 2024 End: September 05, 2024 Team Status: Inactive Member Role Status Dates Dr. Virgil Payton MD Primary Care Provider Active Start: November 13, 2024 End: November 13, 2024 Dr. Virgil Payton MD Attending Provider Active Start: November 13, 2024 End: November 13, 2024 Dr. Virgil Payton MD Referring Provider Active Start: November 13, 2024 End: November 13, 2024 Team Status: Inactive Member Role Status Dates Dr. Virgil Payton MD Primary Care Provider Active Start: December 04, 2024 End: December 04, 2024 Dr. Josué Lara MD Attending Provider Active Start: December 04, 2024 End: December 04, 2024 Dr. Josué Lara MD Referring Provider Active Start: December 04, 2024 End: December 04, 2024 Team Status: Active Member Role/Relationship Status Dates Dr. Virgil Payton MD Primary Care Provider Active Team Status: Inactive Member Role/Relationship Status Dates Dr. Virgil Payton MD Primary Care Provider Active Start: November 13, 2024 End: November 13, 2024 Dr. Virgil Payton MD Attending Provider Active Start: November 13, 2024 End: November 13, 2024 Dr. Virgil Payton MD Referring Provider Active Start: November 13, 2024 End: November 13, 2024 Team Status: Inactive Member Role/Relationship Status Dates Dr. Virgil Payton MD Primary Care Provider Active Start: December 04, 2024 End: December 04, 2024 Dr. Josué Lara MD Attending Provider Active Start: December 04, 2024 End: December 04, 2024 Dr. Josué Lara MD Referring Provider Active Start: December 04, 2024 End: December 04, 2024 Team Status: Inactive Member Role/Relationship Status Dates Dr. Virgil Payton MD Primary Care Provider Active Start: February 26, 2025 End: February 26, 2025 Dr. Virgil Payton MD Referring Provider Active Start: February 26, 2025 End: February 26, 2025 Dr. Milton Tabor DO Attending Provider Active Start: February 26, 2025 End: February 26, 2025 Team Status: Active Member Role/Relationship Status Dates Dr. Virgil Payton MD Primary Care Provider Active Start: February 26, 2025 Dr. Milton Tabor DO Attending Provider Active Start: February 26, 2025 Dr. Milton Tabor DO Referring Provider Active Start: February 26, 2025 Team Status: Active Member Role/Relationship Status Dates Dr. Virgil Payton MD Primary care physician Active Team Status: Inactive Member Role/Relationship Status Dates Dr. Virgil Payton MD Primary care physician Active Start: February 26, 2025 End: February 26, 2025 Dr. Virgil Payton MD Referring Provider Active Start: February 26, 2025 End: February 26, 2025 Dr. Milton Tabor DO Attending physician Active Start: February 26, 2025 End: February 26, 2025 Team Status: Active Member Role/Relationship Status Dates Dr. Virgil Payton MD Primary care physician Active Start: February 26, 2025 Dr. Milton Tabor DO Attending physician Active Start: February 26, 2025 Dr. Milton Tabor DO Referring Provider Active Start: February 26, 2025 Team Status: Inactive Member Role/Relationship Status Dates Dr. Virgil Payton MD Primary care physician Active Start: May 14, 2025 End: May 14, 2025 Dr. Virgil Payton MD Attending physician Active Start: May 14, 2025 End: May 14, 2025 Team Status: Inactive Member Role/Relationship Status Dates Dr. Virgil Payton MD Primary care physician Active Start: May 28, 2025 End: May 28, 2025 Dr. Virgil Payton MD Attending physician Active Start: May 28, 2025 End: May 28, 2025 Dr. Virgil Payton MD Referring Provider Active Start: May 28, 2025 End: May 28, 2025 Team Status: Active Member Role/Relationship Status Dates Dr. Virgil Payton MD Primary care physician Active Start: May 28, 2025 Dr. Virgil Payton MD Referring Provider Active Start: May 28, 2025 Dr. Dorian Montes MD Attending physician Active Start: May 28, 2025 Reason for Visit (unrecogniz ed section and content) Reason Comments New Patient (ref Dr. 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) Procedures CTA abdomen pelvis angiogram w and/or wo IV contrast Tian Lara MD [address] [place] [address] [facility] [address] [facility] [address] [place] [address] Referral ID Status Reason Start Date Expiration Date Visits Re quested Visits Authorized [id number] Closed 02/24/2023 08/23/2023 1 1 Specialty Diagnoses / Procedures Referred By Colleen ibanez Referred To Contact Diagnoses 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) [I71.42] Procedures DE VISCER AND INFRARENAL ABDOM AORTA 3 PROSTHESIS DE OPN FEM ART EXPOS DLVR EVASC PROSTH UNI FENESTRATED STENT GRAFT OPEN FEMORAL ARTERY EXPOSURE FOR DELIVERY OF ENDOVASCULAR PROSTHESIS Tian Lara MD [address] [place] [address] [facility] Or [address] [place] [address] Referral ID Status Reason Start Date Expiration Date Visits Re quested Visits Authorized [id number] 1 1 Reason Comments Post-op 1st PO fenestrated s tent graft for AAA 04/06/2023 Reason Onset Date Comments Other 09/28/2024 2nd attempt to s chedule Scheduled Active and Recently Administ ered Medications (unrecognized section and content) Medication Order 04/05/2023 04/06/2023 04/07/2023 acetaminophen (Tylenol) tablet 1,000 mg (COMPLETED) 1,000 mg, Oral, Once, On Wed04/06/23 at 0615, For 1 dose, Preprocedure, Maximum dose of acetaminophen is 4000 mg from all sources in 24 hours. Do not administer if patient has taken tylenol <4 hours earlier. Do not give if contraindicated ie. patient has active liver disease or cirrhosis. 0622 (Given - Provider: Melissa Rogers RN) acetaminophen (Tylenol) tablet 650 mg 650 mg, Oral, Every 6 hours scheduled (4 times per day), First dose on Wed04/06/23 at 1245, Phase II/On Unit, Maximum dose of acetaminophen is 4000 mg from all sources in 24 hours. 1254 (Given - Provider: Carlee Levi LPN)1757 (Given - Provider: Carlee Levi LPN) 0027 (Given - Provider: Dandre Leon Jr., RN)0601 (Given - Provider: Dandre Leon Jr., RN)1200 (Canceled Entry - Provider: Automatic Discharge Provider - Comment: Automatically canceled at discontinue of medication order) aspirin chewable tablet 81 mg 81 mg, Oral, Daily, First dose on Wed04/06/23 at 1245, Phase II/On Unit 1245 (Not Given - Provider: Carlee Levi LPN - Reason: Patient/family refused) 0835 (Given - Provider: Michelle Harris, GRISELDA) atorvastatin (Lipitor) tablet 40 mg 40 mg, Oral, Daily, First dose on Wed04/06/23 at 1245, Phase II/On Unit, Substituted for simvastatin (Zocor). 1254 (Given - Provider: Carlee Levi LPN) 0835 (Given - Provider: Michelle Harris RN) ceFAZolin in dextrose 4% (Ancef) IVPB 2,000 mg (COMPLETED) 2,000 mg, IntraVENous, Administer over 30 Minutes, Once, On Wed04/06/23 at 0615, For 1 dose, Preprocedure, Administer within 1 hour prior to incision. Recommend to repeat in 3-4 hours after initial dose if still intra-op. premix bag, Suspected Indication (Select all that apply): Surgical Prophylaxis 0741 (Given - Provider: Davy Avila APRN - SCIENTIFIC DATABASE CURATOR) clopidogrel (Plavix) tablet 75 mg 75 mg, Oral, Daily, First dose on Wed04/06/23 at 1245, Phase II/On Unit 1254 (Given - Provider: Carlee Levi LPN) 0835 (Given - Provider: Michelle Harris RN) enoxaparin (Lovenox) syringe 40 mg 40 mg, SubCUTAneous, Every 24 hours scheduled (Daily), First dose on Wed04/06/23 at 2100, Indication of Use: Prophylaxis-DVT/PE, Indications: Prophylaxis of Venous Thromboembolism 2015 (Given - Provider: Carlee Levi LPN) famotidine (Pepcid) tablet 20 mg (COMPLETED) 20 mg, Oral, Once, On Wed04/06/23 at 0615, For 1 dose, Preprocedure 0622 (Given - Provider: Melissa Rogers, RN) gabapentin (Neurontin) capsule 300 mg 300 mg, Oral, 3 times daily, First dose on Wed04/06/23 at 1400, Phase II/On Unit 1421 (Given - Provider: Carlee Levi LPN)2015 (Given - Provider: Carlee Levi LPN) 0835 (Given - Provider: Michelle Harris RN)1400 (Canceled Entry - Provider: Automatic Discharge Provider - Comment: Automatically canceled at discontinue of medication order) Insulin Lispro (Humalog) injection 0-12 Units(Linked Group 1) 0-12 Units, SubCUTAneous, 3 times daily with meals, First dose on Wed04/06/23 at 1245, Phase II/On Unit, Medium Dose Correction Algorithm Glucose: Dose: LESS than 139 No Insulin 140-199 2 Unit 200-249 4 Units 250-299 6 Units 300-349 8 Units 350-400 10 Units Above 400 12 Units 1419 (Given - Provider: Carlee Levi LPN - Comment: [phone] (Given - Provider: Carlee Levi LPN - Comment: [phone]) 0800 (Canceled Entry - Provider: Automatic Discharge Provider - Comment: Automatically canceled at discontinue of medication order)1200 (Canceled Entry - Provider: Automatic Discharge Provider - Comment: Automatically canceled at discontinue of medication order) Insulin Lispro (Humalog) injection 0-12 Units(Linked Group 1) 0-12 Units, SubCUTAneous, Nightly, First dose on Wed04/06/23 at 2100, Phase II/On Unit, If continuous tube feedings/TPN/NPO, give correction dose based on result, no reduction in dose. If eating or bolus tube feeding: Medium Dose Correction Algorithm Glucose: Dose: LESS than 139 No Insulin 140-199 2 Unit 200-249 4 Units 250-299 6 Units 300-349 8 Units 350-400 10 Units Above 400 12 Units 2015 (Given - Provider: Carlee Levi LPN - Comment: [phone]) lisinopril tablet 40 mg 40 mg, Oral, Daily, First dose on Wed04/07/23 at 1800, Phase II/On Unit sodium chloride 0.9% (NS) flush 10 mL 10 mL, IntraVENous, Every 12 hours scheduled (2 times per day), First dose on Wed04/06/23 at 2100, Phase II/On Unit 2100 (Given - Provider: Carlee Levi LPN) 0900 (Canceled Entry - Provider: Automatic Discharge Provider - Comment: Automatically canceled at discontinue of medication order) tamsulosin (Flomax) 24 hr capsule 0.4 mg 0.4 mg, Oral, Daily, First dose on Wed04/06/23 at 1245, Phase II/On Unit, Do not crush, chew, or split. 1253 (Given - Provider: Carlee Levi LPN) 0835 (Given - Provider: Michelle Harris, GRISELDA) trospium (Sanctura) tablet 20 mg 20 mg, Oral, 2 times daily before meals, First dose on Wed04/06/23 at 1600, Phase II/On Unit, Substituted for oxybutynin (DITROPAN); fesoterodine (TOVIAZ); darifenacin (ENABLEX); solifenacin (VESICARE); tolterodine IR (DETROL); tolterodine ER (DETROL LA). 1600 (Not Given - Provider: Carlee Levi LPN - Reason: Patient/family refused - Comment: states he already took today) 0601 (Given - Provider: Dandre Leon Jr., RN) Continuous Medication Order 04/05/2023 04/06/2023 04/07/2023 sodium chloride 0.9 % infusion (CANCELED) 50 mL/hr, IntraVENous, Continuous, Starting on Wed04/06/23 at 0615, Preprocedure, Upon admission to sameday - please start iv if patient does not have iv access. 0625 (New Bag - Provider: Melina Rogers RN)0770 (Continued by Anesthesia - Provider: NEDY Mcginnis CRNA)0756 (Rate/Dose Change - Provider: ENDY Mcginnis CRNA)1034 (Stopped - Provider: ENDY Mcginnis CRNA) PRN Medication Order 04/05/2023 04/06/2023 04/07/2023 dextrose 5 % infusion 100 mL/hr, IntraVENous, PRN, Blood sugar less than 70mg/dL, Starting on Wed04/06/23 at 1235, Start infusion following administration of dextrose 50% or glucagon. dextrose 50 % solution 12.5 g 12.5 g, IntraVENous, PRN, low blood sugar, Blood glucose less than 70 mg/dL and patient NOT ALERT or NPO., Starting on Wed04/06/23 at 1235, If patient does not respond within 5 minutes, repeat dose x1. Start D5W at 100 mL/hour until ordering provider can be reached. Repeat blood glucose in 15 minutes. If blood glucose is less than 70 mg/dL, repeat treatment and recheck blood glucose in 15 minutes x2. If using Glucostabilizer, dose as instructed per system. glucagon (human recombinant) injection 1 mg 1 mg, IntraMUSCular, PRN, low blood sugar, Blood glucose less than 70 mg/dL and patient NOT ALERT or NPO and does not have IV access., Starting on Wed04/06/23 at 1235, After administration, attempt intravenous access and start D5W at 100 mL/hr. Repeat blood glucose in 15 minutes x2 and notify provider. glucose oral gel 15 g 15 g, Oral, As needed, low blood sugar, Starting on Wed04/06/23 at 1235, If blood glucose less than 50 mg/dL and patient ALERT and NOT NPO, give 2 tubes glucose gel. If blood glucose less than 70 mg/dL and patient ALERT and NOT NPO, give 1 tube glucose gel. Repeat blood glucose in 15 minutes. If blood glucose is less than 70 mg/dL, repeat treatment and recheck blood glucose in 15 minutes x2 and notify provider. heparin 10,000 Units in sodium chloride 0.9 % 1,000 mL OR irrigation (CANCELED) As needed, Starting on Wed04/06/23 at 0816, Intraprocedure 0816 (Given - Provider: Tian Lara MD) iodixanol (VISIPaque) 320 MG/ML injection (COMPLETED) Continuous PRN, Starting on Wed04/06/23 at 1018, Intraprocedure 1018 (New Bag - Provider: Tian Lara MD) Labetalol HCl (Normodyne, Trandate) injection 10 mg 10 mg, IntraVENous, Every 2 hour PRN, high blood pressure, Starting on Wed04/06/23 at 1230, Phase II/On Unit, 1st Line: Give for SBP GREATER than 140 mmHG and HR GREATER than 60 BPM morphine injection 2 mg(Linked Group 2) 2 mg, IntraVENous, Every 2 hour PRN, moderate pain (4-6), Starting on Wed04/06/23 at 1230, Phase II/On Unit, If oral and IV narcotics ordered, use oral first and only use IV if oral is ineffective or cannot take oral. Do Not give oral and IV within 1 hour of each other unless specifically ordered. morphine injection 4 mg(Linked Group 2) 4 mg, IntraVENous, Every 2 hour PRN, severe pain (7-10), Starting on Wed04/06/23 at 1230, Phase II/On Unit, If oral and IV narcotics ordered, use oral first and only use IV if oral is ineffective or cannot take oral. Do Not give oral and IV within 1 hour of each other unless specifically ordered. ondansetron (Zofran) injection 4 mg(Linked Group 3) 4 mg, IntraVENous, Every 6 hours PRN, nausea, vomiting, Starting on Wed04/06/23 at 1230, Phase II/On Unit, 1st Line. Give IV if patient is unable to take orally. If inadequate response within 60 minutes, proceed to next-line agent or contact provider if no further options ordered. ondansetron ODT (Zofran-ODT) disintegrating tablet 4 mg(Linked Group 3) 4 mg, Oral, Every 8 hours PRN, nausea, vomiting, Starting on Wed04/06/23 at 1230, Phase II/On Unit, 1st Line. If inadequate response within 60 minutes, proceed to next-line agent or contact provider if no further options ordered. Patient should allow tablet to dissolve on tongue. Do not remove from blister pack until just before administering. oxyCODONE (Roxicodone) immediate release tablet 5 mg 5 mg, Oral, Every 4 hours PRN, severe pain (7-10), Starting on Wed04/06/23 at 1230, Phase II/On Unit sodium chloride 0.9 % infusion 5-250 mL/hr, IntraVENous, PRN, if patient receiving piggyback infusions and maintenance fluids are not ordered OR KVO fluids to protect IV site / prevent frequent line interruptions/ long duration, Starting on Wed04/06/23 at 1230, Phase II/On Unit, For piggyback infusion, administer at same rate as piggyback for a total of 25 mL. Enter 25 mL into dose field and piggyback rate into rate field of order. If piggyback is infusing at a rate less than 100 mL/hr, enter 25 mL into dose field and 100 mL/hr into rate field of order. For KVO fluids, enter rate of 20 mL/hr or less into rate field of order. sodium chloride 0.9 % irrigation solution (CANCELED) As needed, Starting on Wed04/06/23 at 0816, Intraprocedure 0816 (Given - Provider: Tian Lara MD) sodium chloride 0.9% (NS) flush 10 mL 10 mL, IntraVENous, PRN, line care, Starting on Wed04/06/23 at 1230, Phase II/On Unit, After every IV line use Linked Groups Order Group 1: Insulin Lispro (Humalog) injection 0-12 UnitsJump to med 0-12 Units, SubCUTAneous, 3 times daily with meals, First dose on Wed04/06/23 at 1245, Phase II/On Unit
Medium Dose Correction Algorithm Glucose: & nbsp; Dose: LESS than 139 No Insulin 140-199 2 Unit 200-249 4 Units 250-299 6 Units 300- 349 8 Units 350-400 10 Units Above 400 12 Units
And Insulin Lispro (Humalog) injection 0-12 UnitsJump to med 0-12 Units, SubCUTAneous, Nightly, First dose on Wed04/06/23 at 2100, Phase II/On Unit
If continuous tube feedings/TPN/NPO, give correction dose based on result, no reduction in dose. If eating or bolus tube feeding: Medium Dose Correction Algorithm Glucose: & nbsp; Dose: LESS than 139 No Insulin 140-199 2 Unit 200-249 4 Units 250-299 6 Units 300- 349 8 Units 350-400 10 Units Above 400 12 Units
Group 2: morphine injection 2 mgJump to med 2 mg, IntraVENous, Every 2 hour PRN, moderate pain (4-6), Starting on Wed04/06/23 at 1230, Phase II/On Unit
If oral and IV narcotics ordered, use oral first and only use IV if oral is ineffective or cannot take oral. Do Not give oral and IV within 1 hour of each other unless specifically ordered.
Or morphine injection 4 mgJump to med 4 mg, IntraVENous, Every 2 hour PRN, severe pain (7-10), Starting on Wed04/06/23 at 1230, Phase II/On Unit
If oral and IV narcotics ordered, use oral first and only use IV if oral is ineffective or cannot take oral. Do Not give oral and IV within 1 hour of each other unless specifically ordered.
Group 3: ondansetron ODT (Zofran-ODT) disintegrating tablet 4 mgJump to med 4 mg, Oral, Every 8 hours PRN, nausea, vomiting, Starting on Wed04/06/23 at 1230, Phase II/On Unit
1st Line. If inadequate response within 60 minutes, proceed to next-line agent or contact provider if no further options ordered. Patient should allow tablet to dissolve on tongue. Do not remove from blister pack until just before administering.
Or ondansetron (Zofran) injection 4 mgJump to med 4 mg, IntraVENous, Every 6 hours PRN, nausea, vomiting, Starting on Wed04/06/23 at 1230, Phase II/On Unit
1st Line. Give IV if patient is unable to take orally. If inadequate response within 60 minutes, proceed to next-line agent or contact provider if no further options ordered.
(unrecognized sect ion and content) No Status Records FoundNo Status Records Found INFORMATION SOURCE (unrecogn ized section and content) DATE CREATED AUTHOR 09/30/2024 [facility] DATE CREATED AUTHOR AUTHOR'S ORGANIZ ATION 06/13/2025 [facility] FOR RECORDS PERTAINING TO PATIENTS WHO ARE OR HAVE BEEN ENROLLED IN A CHEMICAL DEPENDENCY/SUBSTANCEABUSE PROGRAM, SOME INFORMATION MAY BE OMITTED. This clinical summary was aggregated from multiple sources. Caution should be exercised in using it in the provision of clinical care. This summary normalizes information from multiple sources, and as a consequence, information in this document may materially change the coding, format and clinical context of patient data. In addition, data may be omitted in some cases. CLINICAL DECISIONS SHOULD BE BASED ON THE PRIMARY CLINICAL RECORDS. [employer] provides no warranty or guarantee of the accuracy or completeness of information in this document.
--- NOTE | 2025-06-28 10:10 | RAD_ITS ---
PROCEDURE: LUMBAR SPINE 2 OR 3 VIEWS 06/28/2025 REASON FOR EXAM: NUMBNESS, TINGLING B/L LEGS, BACK PAIN TECHNIQUE: Procedure Code: RADSPLL Modality: DX Procedure: LUMBAR SPINE 2 OR 3 VIEWS COMPARISON: None FINDINGS: Vertebrae: No fracture. Discs: Mild disc space narrowing L3/4 L4/5. Marginal endplate spurring is shown at those levels as well. Mild facet hypertrophy at those levels. Alignment: Mild straightening of the lordosis. Other: Patient has undergone aorto bi-iliac stent grafting. Stents of the renal arteries are present as well. Aneurysm sac is rather large when measuring the calcifications anterior is posteriorly. This is at least 8 cm AP. RAD/Lumbar Spine 2 or 3 Views IMPRESSION: Mild straightening of the lumbar lordosis. Mild degenerative changes. Aortic aneurysm graft in place. Aneurysm sac is up to 8 cm. Recommend correla tion with prior CT scanning. None available at this facility. Reading Location: [id number]
[2025-06-28 10:54] LABS: PSA,Total- Diagnostic 0.05 ng/mL (0.00-4.00)
== END | disposition home or self-care (01) ==
PROVIDERS: PCP Family Medicine; Referring Provider Urology; Visit Provider Urology
DX: C61 Malignant neoplasm of prostate (principal); M54.9 Dorsalgia, unspecified; G89.29 Other chronic pain; R20.0 Anesthesia of skin; R20.2 Paresthesia of skin
CPT/HCPCS: 36415; 72100; 84153

== ENCOUNTER → 2025-07-10 | Outpatient (CLI) | payer MEDICARE, SELFPAY ==
--- NOTE | 2025-07-10 08:32 | AAVD_ITS ---
Reason For Study Reason For Study: S/P AAA repair Aorta Measurements Aorta Doppler Measurements Proximal aorta measures2.68 x 2.60cm. in cross-sectional Peak systolic flow velocities within the proximal aorta axis. measure 57.8 cm/sec. Proximal aorta measures2.75cm. in longitudinal axis. Peak systolic flow velocities within the mid aorta measure Mid aorta, residual sac, 7.16 x 7.06 x 7.03 cm. 41.5 cm/sec. Mid Aorta endograft, 2.89 x 3.13 x 3.00 cm. Distal aorta, Limb 1, 95.9 cm/sec. Distal aorta, Limb 2, 77.7 cm/sec. Distal aorta. residual sac, 5.36 x 4.95 x 5.75 cm. Distal aorta, Limb 1: 0.92 x 0.94 x 1.06 cm. Distal aorta, Limb 2: 1.03 x 1.03 x 1.04 cm. Left Iliac Artery Left iliac artery measures 1.22 x 1.19 cm. in the cross-sectional axis. Left iliac artery measures 1.10 cm. in the longitudinal axis. Peak systolic velocity in the left iliac artery measures 56 cm/sec. Right Iliac Artery Right iliac artery measures 1.13 x 1.07 cm. in the cross-sectional axis. Right iliac artery measures 1.18 cm. in the longitudinal axis. Peak systolic velocity in the right iliac artery measures 92.2 cm/sec. Procedure Aorta IVC Iliac vasculature or bypass grafts [id number]. Exam performed in department. VL/Abd Aortic/IVC Duplex scan Interpretation Summary Patent aortic endograft with normal velocities and no evidence of stenosis. Residual aneurysm sac 7.16 cm with no endoleak visualized. Stable from prior st udy. Ordering Physician: Winifred Obrien Referring Physician: Virgil Payton Performed By: Jocy Haley RVT
== END | disposition home or self-care (01) ==
LOC: CVS 08:27
PROVIDERS: PCP Family Medicine; Referring Provider Physician Assistant; Visit Provider Physician Assistant
DX: Z48.812 Encounter for surgical aftercare following surgery on the circulatory system (principal); I71.43 Infrarenal abdominal aortic aneurysm, without rupture
CPT/HCPCS: 93978